=== PATIENT | male | born 1990 | race Caucasian/White ===

== ENCOUNTER → 2016-11-15 | Outpatient (CLI) | payer BC, OTHER ==
[2016-11-15 14:24] LABS: Blood Urea Nitrogen 11 mg/dL (9-20); Non-African American GFR(MDRD) >60 (>60 ml/min/1.73 sqM)
== END | disposition home or self-care (01) ==
LOC: LABWHC1 13:42
PROVIDERS: ATTEND Internal Medicine Interventional Cardiology
DX: I71.2 Thoracic aortic aneurysm, without rupture (principal)
CPT/HCPCS: 36415; 82565; 84520

== ENCOUNTER → 2016-12-22 | Outpatient (CLI) | payer BC, OTHER ==
[2016-12-22 10:54] LABS: CH 30.9; CHCM 34.8; HCT 48.8 % (39.0-53.0); HDW 2.96; HGB 16.9 gm/dL (13.0-17.5); MCH 30.9 pg (25.0-35.0); MCHC 34.6 g/dL (31.0-37.0); MCV 89.3 fL (80.0-100.0); Mean Platelet Volume 6.3; RBC 5.46 m/uL (4.30-5.90); RDW 13.1 % (11.5-15.5); WBC 7.7 k/uL (3.8-10.6)
[2016-12-22 11:29] LABS: Anion Gap 12 mmol/L; Blood Urea Nitrogen 16 mg/dL (9-20); Calcium 10.3 mg/dL (8.4-10.2); Carbon Dioxide 29 mmol/L (22-30); Chloride 102 mmol/L (98-107); Glucose 91 mg/dL (74-99); Non-African American GFR(MDRD) >60 (>60 ml/min/1.73 sqM); Potassium 4.5 mmol/L (3.5-5.1); Sodium 143 mmol/L (137-145)
== END | disposition home or self-care (01) ==
LOC: LABWHC1 10:39
PROVIDERS: ATTEND Internal Medicine Interventional Cardiology
DX: Z01.812 Encounter for preprocedural laboratory examination (principal); I35.0 Nonrheumatic aortic (valve) stenosis
CPT/HCPCS: 36415; 80048; 85027

== ENCOUNTER 2017-01-04 06:14 | Day surgery (SDC) | payer BC, OTHER ==
[2017-01-03 13:17] VITALS: BMI 25.7
[~2017-01-04 06:14] MED LIST: ALPRAZolam 0.25 MG TAB PO PRN; ALPRAZolam 0.5 MG TAB PO PRN; ASPIRIN 325 MG TAB PO STA; ATORVASTATIN 80 MG TAB PO STA; NITROGLYCERIN SL TABS 0.4 MG TAB SUBLINGUAL PRN; SODIUM CHLORIDE 0.9% 1,000 ML in EMPTY BAG 1 BAG IV ONE
[2017-01-04] MEDS ORDERED: SODIUM CHLORIDE 0.9% 1,000 ML IV ONE (06:50)
[2017-01-04] MEDS ORDERED: diphenhydrAMINE 50 MG/ML 1 ML VIAL ONE (07:27)
[2017-01-04] MEDS ORDERED: LIDOCAINE 2% INJ 20 MG/ML (20 ML MDV) ONE (07:27)
[2017-01-04] MEDS ORDERED: HEPARIN SODIUM 1,000 UNIT/ML VIAL ONE (07:27)
[2017-01-04] MEDS ORDERED: MIDAZOLAM 2 MG/2 ML VIAL ONE ×2 (07:27→11:45)
[2017-01-04] MEDS ORDERED: VERAPAMIL 2.5 MG/ML 2 ML AMP ONE (07:28)
[2017-01-04] MEDS ORDERED: SODIUM CHLORIDE 0.9% (PF) 10 ML VIAL ONE (07:28)
[2017-01-04] MEDS ORDERED: diphenhydrAMINE 50 MG/ML 1 ML VIAL IVP ONE (07:45)
[2017-01-04] MEDS ORDERED: MIDAZOLAM 2 MG/2 ML VIAL IV ONE ×2 (07:47→12:00)
[2017-01-04] MEDS ORDERED: LIDOCAINE 2% INJ 20 MG/ML SQ ONE (07:49)
[2017-01-04] MEDS ORDERED: fentaNYL (PF) 50 MCG/ML 2 ML AMP ONE ×2 (07:50→11:46)
[2017-01-04] MEDS ORDERED: fentaNYL (PF) 50 MCG/ML 2 ML AMP IV ONE ×2 (07:51→12:00)
[2017-01-04] MEDS: VERAPAMIL SYRINGE (5 MG/10 ML) INTRAARTER ONE ×2 (07:57→08:09)
[2017-01-04] MEDS ORDERED: IOHEXOL 350 MG/ML 100 ML BOTTLE INJ ONE (08:09)
[2017-01-04] MEDS ORDERED: SODIUM CHLORIDE 0.9% 1,000 ML IV SCH (08:30)
[2017-01-04] MEDS ORDERED: ACETAMINOPHEN TAB 325 MG TAB PO PRN (10:58)
[2017-01-04] MEDS ORDERED: ACETAMINOPHEN TAB 325 MG TAB ONE (10:59)
[2017-01-04] MEDS ORDERED: IV FLUID CONTINUATION 1,000 ML IV ONE (11:50)
[2017-01-04] MEDS: BENZOCAINE SPRAY 100 APPLIC/CAN MUCOUS MEM ONE ×2 (11:57→12:06)
[2017-01-04 12:00] VITALS: RESP 16
[2017-01-04] MEDS: MIDAZOLAM 2 MG/2 ML VIAL IV ONE ×2 (12:03→12:07)
[2017-01-04] MEDS ORDERED: SODIUM CHLORIDE 0.9% 500 ML IV ONE (12:10)
[2017-01-04 12:20] VITALS: TEMP 98
[2017-01-04 13:09] VITALS: PULSE 78
--- NOTE | 2017-01-04 13:29 | XR ---
EXAMINATION TYPE: XR chest 2V DATE OF EXAM: 01/04/2017 1:26 PM HISTORY: PreOp Cardiac Surgery. REFERENCE: Previous study dated 02/24/2016. FINDINGS: The lungs are clear. Pleural spaces are clear. Heart size is normal. IMPRESSION: NORMAL CHEST.
--- NOTE | 2017-01-04 14:15 | US ---
EXAMINATION TYPE: US carotid duplex BILAT DATE OF EXAM: 01/04/2017 1:40 PM COMPARISON: NONE CLINICAL HISTORY: pre-op CABG. Pre op cardiac surgery, valve replacement. Dizziness, chest pain EXAM MEASUREMENTS: RIGHT: Peak Systolic Velocity (PSV) cm/sec ----- Right CCA: 68.0 ----- Right ICA: 73.2 ----- Right ECA: 57.5 ICA/CCA ratio: 1.1 RIGHT: End Diastole cm/sec ----- Right CCA: 19.7 ----- Right ICA: 41.8 ----- Right ECA: 11.3 LEFT: Peak Systolic Velocity (PSV) cm/sec ----- Left CCA: 74.6 ----- Left ICA: 62.5 ----- Left ECA: 59.2 ICA/CCA ratio: 0.8 LEFT: End Diastole cm/sec ----- Left CCA: 25.2 ----- Left ICA: 25.2 ----- Left ECA: 10.4 VERTEBRALS (direction of flow): Right Vertebral: Antegrade Left Vertebral: Antegrade TECHNOLOGIST IMPRESSION: Mild plaque noted bilateral bifurcations, greater on the left. NO increased velocities. No significant stenosis. IMPRESSION: I DO NOT SEE EVIDENCE OF A HEMODYNAMICALLY SIGNIFICANT STENOSIS IN EITHER CAROTID SYSTEM. Criteria for Assigning % of Stenosis / Diameter reduction (Estimation based on the indirect measurements of the internal carotid artery velocities (ICA PSV). 1. Normal (no stenosis)=ICA PSV < 125 cm/s: ratio < 2.0: ICA EDV<40 cm/s. 2. Less than 50% stenosis=ICA PSV < 125 cm/s: ratio < 2.0: ICA EDV<40 cm/s. 3. 50 to 69% stenosis=ICA PSV of 125 to 230 cm/s: ration 2.0 ? 4.0: ICA EDV 40-100 cm/s. 4. Greater than 70% stenosis to near occlusion= ICA PSV > 230 cm/s: ratio > 4.0: ICA EDV > 100 cm/s. 5. Near occlusion= ICA PSV velocities may be low or undetectable: variable ratio and ICA EDV. 6. Total occlusion=unable to detect flow.
[2017-01-04 14:44] LABS: Appearance,Urine Clear (Clear); Bilirubin,Urine Negative (Negative); Glucose,Urine (UA) Negative (Negative); Ketones,Urine Negative (Negative); Leukocyte Esterase,Urine Negative (Negative); Nitrite,Urine Negative (Negative); Protein,Urine Negative (Negative); Specific Gravity,Urine 1.022 (1.001-1.035); UA Billing (MACRO vs. MICRO) CHEM; Urobilinogen,Urine <2.0 mg/dL (<2.0)
[2017-01-04 15:59] LABS: Basophils # (A) 0.1 k/uL (0-0.2); Basophils % (A) 1 %; CH 30.5; CHCM 35.1; Eosinophils # (A) 0.3 k/uL (0-0.7); Eosinophils % (A) 4 %; HCT 43.9 % (39.0-53.0); HGB 15.3 gm/dL (13.0-17.5); Luc # (Auto) 0.13; Luc % (Auto) 2; Lymphocytes # (A) 2.2 k/uL (1.0-4.8); Lymphocytes % (A) 29 %; MCH 30.3 pg (25.0-35.0); MCHC 34.7 g/dL (31.0-37.0); MCV 87.3 fL (80.0-100.0); Mean Platelet Volume 7.4; Monocytes # (A) 0.5 k/uL (0-1.0); Monocytes % (A) 6 %; Neutrophils # (A) 4.5 k/uL (1.3-7.7); Neutrophils % (A) 58 %; RBC 5.03 m/uL (4.30-5.90); RDW 12.8 % (11.5-15.5); WBC 7.6 k/uL (3.8-10.6); WBC (Perox) 7.69
[2017-01-04 16:16] LABS: ALT 43 U/L (21-72); AST 26 U/L (17-59); Alkaline Phosphatase 49 U/L (38-126); Anion Gap 9 mmol/L; Blood Urea Nitrogen 12 mg/dL (9-20); Calcium 9.1 mg/dL (8.4-10.2); Carbon Dioxide 26 mmol/L (22-30); Chloride 106 mmol/L (98-107); Cholesterol 215 mg/dL (<200); Glucose 87 mg/dL (74-99); HDL Cholesterol 42 mg/dL (40-60); INR 1.1 (<1.1); Non-African American GFR(MDRD) >60 (>60 ml/min/1.73 sqM); Partial Thromboplastin Time 25.2 sec (22.0-30.0); Potassium 4.4 mmol/L (3.5-5.1); Prothrombin Time 10.8 sec (9.0-12.0); Sodium 141 mmol/L (137-145); Total Bilirubin 0.9 mg/dL (0.2-1.3); Total Protein 6.9 g/dL (6.3-8.2); Triglycerides 288 mg/dL (<150)
[2017-01-04 17:15] VITALS: BP 102/56
[2017-01-04 18:39] LABS: Hemoglobin A1C 4.9 % (4.2-6.1)
--- NOTE | 2017-01-04 18:41 | CC ---
DATE OF SERVICE: 01/04/2017 PROCEDURE: Coronary angiography. PERFORMED BY: Dr. eSnait Taveras. CLINICAL INFORMATION: Mr. Zacarias Ashraf is a 26-year-old gentleman with bicuspid aortic valve with significant aortic stenosis and symptoms of exertional shortness of breath and occasional chest pressure was followed by me for the last year or so. He also had a dilatation of the ascending aorta, but not of the root of about nearly 4.5 cm. He was also seen by Dr. Charlie Guevara. He was advised coronary angiography prior to probable aortic valve replacement. He will also have a transesophageal echo. Risks, benefits, options and rationale were discussed at length with the patient and his and he was brought in for the procedure electively. PROCEDURE NOTE: Under local anesthesia and strict aseptic precautions, a 6 Burmese introducer was placed in the right radial artery. A micropuncture needle technique was used. An Ultima one catheter was used to perform selective coronary angiography of the left system. I used a 3.5 curved right Jocy catheter for right coronary artery angiography. I used the same catheter and tried to cross the aortic valve without much success. Patient has a tight aortic stenosis. The sheath was then taken out and TR band applied as per protocol. There was good hemostasis. The oxygen saturation in the fingers was 94%. Patient tolerated the procedure well without complications. CORONARY ANGIOGRAPHIC FINDINGS: Left Main Coronary Artery: Short, patent, disease-free vessel that immediately bifurcates into LAD and circumflex. There is no significant disease in the left main coronary artery. Left Anterior Descending Coronary Artery: Good caliber vessel extends along the anterior wall, gives off a good-sized diagonal in the midportion, several septal branches, runs all the way to the apex, curves over the apex to supply the inferoapical portion of the left ventricle. There is no significant disease in the entire LAD system. Left Posterior Circumflex Coronary Artery: Technically a codominant vessel, gives off a large obtuse minor and then comes off and distally gives off what seems to be a smaller posterolateral branch. The obtuse marginal and the posterior lateral branch are both free of significant disease. There are only minor irregularities noted. Right Coronary Artery: Probably a codominant vessel that starts with no significant disease, distally bifurcates into PDA and PLV. PLV is smaller. PDA is slightly larger and supplies a fair amount of myocardium. There is no significant disease. Probably RCA is a technically a dominant vessel. LEFT VENTRICULOGRAM: This was not performed. FINAL IMPRESSION: This patient does not have any significant obstructive CAD. He probably has a codominant or a right dominant system without significant obstructive coronary artery disease. RECOMMENDATIONS: I am recommending that we will await the input of transesophageal echo, but most likely he will require aortic valve replacement and with repair or replacement of focal portion of the ascending aorta and this dilatation is confined to the ascending aorta above the root and below the great vessels. The findings were discussed with the patient. His was not available. However, I will speak to her when she is back and I will see him in the office in about a week.
--- NOTE | 2017-01-04 18:43 | LTR ---
January 04, 2017 RE: Zacarias Ashraf Dear Dr. Damian: Please find enclosed my detailed cardiac catheterization report for your records. This gentleman will probably require aortic valve replacement and repair of the ascending aorta or replacement of a focal segment. Dr. Guevara will see the patient later on today following a transesophageal echo and this procedure will be scheduled electively. This patient does not have any obstructive CAD. Please call me if further questions. Thanks again for your referral. Sincerely, ALEXSANDRA TORRES MD
[2017-01-04 18:48] LABS: Hepatitis B Surface Ag Index 0.07
[2017-01-04 18:54] LABS: Hepatitis B Core IgM Index 0.05
[2017-01-04 19:06] LABS: Hepatitis C Virus IgG Index 0.03
[2017-01-04 19:16] LABS: Hepatitis C Virus IgG Ab Negative (Negative)
--- NOTE | 2017-01-04 21:29 | ECHOT ---
DATE OF SERVICE: PREOPERATIVE DIAGNOSIS: Aortic stenosis. POSTOPERATIVE DIAGNOSIS: Aortic stenosis. Patient was given intravenous sedation with Versed and fentanyl and transesophageal echocardiogram was performed without any complications. Left ventricular chamber is normal in size with a mild degree of left ventricular hypertrophy and normal left ventricular systolic functions. Mitral valve morphology is normal. Left atrium is mildly enlarged. Left atrial appendage is clear. Aortic valve is heavily calcified. It is bicuspid. The opening of the aortic valve is very eccentric and it was difficult to measure the aortic valve area by planimeter. The aortic cusp separation at the tip was 0.8 cm, suggestive of significant aortic stenosis. A peak gradient of 65 to 70 mmHg was noted across the aortic valve. There is a moderate degree of aortic regurgitation. Ascending aorta measures about 4.5 cm and is dilated. Tricuspid valve morphology is normal. Interatrial septum is intact. There is no evidence of any PFO by saline contrast study. FINAL IMPRESSION: The aortic valve is heavily calcified and it is bicuspid. Peak gradient of 65 to 70 mmHg is noted with diminished cusp suppression at the tip of the leaflet suggestive of severe aortic stenosis. There is a moderate degree of aortic regurgitation noted. Ascending aorta is dilated and measures about 4.5 cm. Left ventricular chamber is normal in size with mild degree of left ventricular hypertrophy, normal left ventricular systolic function. Interatrial septum is intact. There is no evidence of PFO. Total sedation time use was 17 minutes.
--- NOTE | 2017-01-10 10:26 | P.VSCSTY ---
Greater Saphenous Vein Mapping This is bilateral lower extremity greater saphenous vein mapping. Date of service 01/04/2017 Vein quality and ultrasound appearance pre-CABG. Vein size groin right 6.3 x 7.8 groin left 5.0 x 5.8 High thigh right 3.7 x 5.5 high thigh left 3.5 x 3.5 Mid thigh right to 2.8 x 3.5 mid thigh left 3.3 x 3.7 Above-knee right 2.4 x 2.7 above- knee left 2.1 x 2.0 Below knee right 2.7 x 2.9 below-knee left 2.1 x 2.3 Mid calf right 2.2 x 2.9 mid calf left 2.5 x 2.5 Ankle right to 2.6 x 3.5 ankle left 3.4 x 3.6 Impression usable bilateral greater saphenous vein.
== END 2017-01-04 16:30 | disposition home or self-care (01) ==
LOC: CATHCVL 06:14
PROVIDERS: ATTEND Internal Medicine Interventional Cardiology
DX: I35.2 Nonrheumatic aortic (valve) stenosis with insufficiency (principal); Q23.1 Congenital insufficiency of aortic valve; I71.2 Thoracic aortic aneurysm, without rupture; I51.7 Cardiomegaly; Z79.899 Other long term (current) drug therapy; Z87.891 Personal history of nicotine dependence
CPT/HCPCS: 94150; 93312; 93320; 93325; 93454; 83880; 80061; 80053; 80074; 84443; 83036; 83735; 84484; 85025; 85610; 85730; 81003; 87070; 87086; 71020; 93970; 93880; 99152 ×2; 99153; C1769; C1894 ×2; J2001; J2250; J1200; Q9967; J3010; J1644

== ENCOUNTER 2017-01-15 05:53 | Inpatient (IN) | payer BC, OTHER ==
[~2017-01-15 05:53] MED LIST changes: +ALBUMIN HUMAN 25% 50 ML IV ONE; +ALBUMIN HUMAN 5% 500 ML IVPB ONE; -ALPRAZolam 0.25 MG TAB PO PRN; -ALPRAZolam 0.5 MG TAB PO PRN; +AMINOCAPROIC ACID 250 MG/ML 20 ML VIAL IV ONE; +AMINOCAPROIC ACID 5,000 MG in DEXTROSE 5% IN WATER 50 ML IV ONE; +ASPIRIN 325 MG TAB PO ONE; -ASPIRIN 325 MG TAB PO STA; +ATORVASTATIN 10 MG TAB PO ONE; -ATORVASTATIN 80 MG TAB PO STA; +CALCIUM CHLORIDE 100 MG/ML 10 ML SYRINGE IV ONE; +CHLORHEXIDINE GLUCONATE 15 ML CUP MUCOUS MEM ONE; +CLEVIDIPINE BUTYRATE 25 MG in EMPTY BAG 1 BAG IV ONE; +DEXTROSE 5% IN WATER 1,000 ML with POTASSIUM CHLORIDE 110 MEQ, MAGNESIUM SULFATE 16 MEQ... IV ONE; +DEXTROSE 5% IN WATER 1,000 ML with POTASSIUM CHLORIDE 25 MEQ, SODIUM CHLORIDE 4MEQ/ML V... IV ONE; +DILTIAZEM 125 MG in SODIUM CHLORIDE 0.9% 100 ML IV ONE; +HEPARIN SODIUM 1,000 UNIT/ML VIAL IV ONE; +HEPARIN SODIUM,PORCINE 5,000 UNIT in SODIUM CHLORIDE 0.9% 500 ML IV ONE; +INSULIN REGULAR 100 UNIT in SODIUM CHLORIDE 0.9% 100 ML IV ONE; +LACTATED RINGERS 1,000 ML IV ONE; +MAGNESIUM SULFATE MG 500 MG/ML VIAL IV ONE; +MANNITOL 25% 12.5 GM/50 ML VIAL IV ONE; +METOPROLOL TARTRATE 12.5 MG TAB PO ONE; +MUPIROCIN 2% OINT 22 GM TUBE NASAL NR; -NITROGLYCERIN SL TABS 0.4 MG TAB SUBLINGUAL PRN; +NITROGLYCERIN-D5W PMX 25 MG/250 ML BTL IV ONE; +NITROGLYCERIN-D5W PMX 50 MG in DEXTROSE/WATER 1 250ML.BAG IV ONE; +NOREPINEPHRINE 4 MG in SODIUM CHLORIDE 0.9% 250 ML IV ONE; +PAPAVERINE 360 MG in SODIUM CHLORIDE 0.9% 90 ML IV ONE; +PHENYLEPHRINE 40 MG in SODIUM CHLORIDE 0.9% 250 ML IV ONE; +PHENYLEPHRINE-0.9% NACL SYG 1 MG/10 ML SYRINGE IV ONE; +PROPOFOL 50 ML IV ONE; +PROTAMINE SULFATE 10 MG/ML 25 ML VIAL IV ONE; +PROTAMINE SULFATE 250 MG in EMPTY BAG 1 BAG IV ONE; +SODIUM BICARB 8.4% 50 ML SYR (1 MEQ/ML) IV ONE; +SODIUM CHLORIDE 0.9% 1,000 ML IV ONE; -SODIUM CHLORIDE 0.9% 1,000 ML in EMPTY BAG 1 BAG IV ONE; +ceFAZolin 1,000 MG in SODIUM CHLORIDE 0.9% IRRIGATIO 1,000 ML IRRIGATION ONE; +ceFAZolin 2,000 MG in SODIUM CHLORIDE 0.9% 30 ML IVPB ONE
[2017-01-15] MEDS ORDERED: MAGNESIUM SULFATE 4 MEQ/ML 2 ML VIAL ONE (07:58)
[2017-01-15] MEDS ORDERED: HEPARIN SODIUM,PORCINE 10,000 UNIT/ML 1 ML VIAL ONE (07:58)
[2017-01-15] MEDS ORDERED: LIDOCAINE 2% SYG (PF) 100 MG/5 ML ONE (07:58)
[2017-01-15] MEDS ORDERED: HEPARIN SODIUM 1,000 UNIT/ML VIAL ONE (07:58)
[2017-01-15] MEDS ORDERED: ALBUMIN HUMAN 5% 500 ML VIAL IVPB ONE (07:58)
[2017-01-15] MEDS ORDERED: SUCCINYLCHOLINE CHLORIDE 100 MG/5 ML SYR IV ONE (07:58)
[2017-01-15] MEDS ORDERED: SODIUM CHLORIDE 0.9% IRRIG 1,000 ML BTL IRRIGATION ONE (07:58)
[2017-01-15] MEDS ORDERED: fentaNYL (PF) 50 MCG/ML 2 ML AMP ONE (07:58)
[2017-01-15] MEDS ORDERED: MIDAZOLAM 2 MG/2 ML VIAL ONE (07:58)
[2017-01-15] MEDS ORDERED: ELECTROLYTE-R (PH 7.4) 1,000 ML IV.SOLN IV ONE (07:58)
[2017-01-15] MEDS ORDERED: fentaNYL (PF) 50 MCG/ML 50 ML VIAL ONE (07:58)
[2017-01-15] MEDS ORDERED: HEPARIN SODIUM,PORCINE 5,000 UNIT/ML 1 ML VIAL ONE (07:58)
[2017-01-15] MEDS ORDERED: PROPOFOL 10 MG/ML 20 ML VIAL IV ONE (07:58)
[2017-01-15] MEDS ORDERED: VECURONIUM 10 MG VIAL IV ONE (07:58)
[2017-01-15 08:34] LABS: Glucose,Whole Blood 104 mg/dL (75-99)
[2017-01-15 09:34] LABS: Glucose,Whole Blood 87 mg/dL (75-99)
[2017-01-15 10:18] LABS: Glucose,Whole Blood 236 mg/dL (75-99)
[2017-01-15 11:03] LABS: Glucose,Whole Blood 260 mg/dL (75-99)
[2017-01-15 11:50] LABS: Glucose,Whole Blood 173 mg/dL (75-99)
[2017-01-15 13:36] LABS: Glucose,Whole Blood 131 mg/dL (75-99)
[2017-01-15] MEDS ORDERED: Phosphorus Replacement Protoco 1 EACH MISC MISCELLANE PRN (14:25)
[2017-01-15] MEDS ORDERED: Magnesium Replacement Protocol 1 EACH MISC MISCELLANE PRN (14:25)
[2017-01-15] MEDS ORDERED: BENZOCAINE/MENTHOL LOZENG 1 EACH LOZENGE MUCOUS MEM PRN (14:25)
[2017-01-15] MEDS ORDERED: CALCIUM GLUCONATE 2,000 MG in SODIUM CHLORIDE 0.9% 100 ML IVPB ONE (14:25)
[2017-01-15] MEDS ORDERED: Potassium Replacement Protocol 1 EACH MISC MISCELLANE PRN (14:25)
[2017-01-15] MEDS ORDERED: MILRINONE-D5W PMX 20 MG in DEXTROSE/WATER 1 100ML.BAG IV SCH (14:30)
[2017-01-15] MEDS ORDERED: NOREPINEPHRINE 4 MG in SODIUM CHLORIDE 0.9% 250 ML IV SCH (14:30)
[2017-01-15] MEDS ORDERED: PROPOFOL 500 MG in EMPTY BAG 1 BAG IV SCH (14:30)
[2017-01-15] MEDS ORDERED: INSULIN REGULAR 100 UNIT in SODIUM CHLORIDE 0.9% 100 ML IV SCH (14:45)
[2017-01-15] MEDS: MORPHINE SULFATE 2 MG/ML SYRINGE IVP PRN ×2 (15:28→19:41)
[2017-01-15 15:35] LABS: Glucose,Whole Blood 146 mg/dL (75-99)
[2017-01-15] MEDS: IPRATROPIUM-ALBUTEROL 3 ML NEB INHALATION SCH ×2 (15:51→19:03)
--- NOTE | 2017-01-15 15:56 | XR ---
EXAMINATION TYPE: XR chest 1V portable DATE OF EXAM: 01/15/2017 3:51 PM HISTORY: Post Op CABG COMPARISON: 01/04/2017 TECHNIQUE: Single view of the chest is submitted. FINDINGS: Endotracheal tube, NG tube, SG catheter, mediastianal drains and chest tubes are appropriately placed . Post operative changes of CABG. No sizeable pneumothorax. Scattered Pleural-parencymal opacities may reflect atelectasis. The heart is not enlarged. IMPRESSION: 1. Post operative changes of CABG.
[2017-01-15 16:03] LABS: Glucose,Whole Blood 163 mg/dL (75-99)
[2017-01-15] MEDS: ceFAZolin 2 GM in SODIUM CHLORIDE 0.9% 100 ML IVPB SCH (16:05)
[2017-01-15] MEDS: LACTATED RINGERS 1,000 ML IV SCH (16:11)
[2017-01-15] MEDS: CLEVIDIPINE BUTYRATE 25 MG in EMPTY BAG 1 BAG IV SCH (16:11)
[2017-01-15 16:16] LABS: ABG Base Excess -2.2 mmol/L; ABG HCO3 22 mmol/L (21-25); ABG Oxygen Saturation 99.9 % (94-97); ABG PCO2 35 mmHg (35-45); ABG PH 7.41 (7.35-7.45); ABG PO2 300 mmHg (83-108); ABG TCO2 23 mmol/L (19-24)
[2017-01-15 16:29] LABS: Basophils % (A) 0 %; CH 31.1; CHCM 35.2; Eosinophils # (A) 0.1 k/uL (0-0.7); Eosinophils % (A) 0 %; HCT 25.8 % (39.0-53.0); HDW 2.84; Ionized Calcium 4.6 mg/dL (4.5-5.3); Luc % (Auto) 1; Lymphocytes # (A) 1.8 k/uL (1.0-4.8); Lymphocytes % (A) 15 %; MCH 30.9 pg (25.0-35.0); MCHC 34.8 g/dL (31.0-37.0); MCV 88.7 fL (80.0-100.0); Mean Platelet Volume 7.7; Monocytes # (A) 0.9 k/uL (0-1.0); Monocytes % (A) 8 %; Neutrophils # (A) 8.7 k/uL (1.3-7.7); Neutrophils % (A) 76 %; RBC 2.92 m/uL (4.30-5.90); WBC 11.5 k/uL (3.8-10.6); WBC (Perox) 11.49
[2017-01-15 16:37] LABS: ALT 30 U/L (21-72); AST 47 U/L (17-59); Alkaline Phosphatase 23 U/L (38-126); Anion Gap 9 mmol/L; Blood Urea Nitrogen 12 mg/dL (9-20); Calcium 7.3 mg/dL (8.4-10.2); Carbon Dioxide 22 mmol/L (22-30); Chloride 108 mmol/L (98-107); Glucose 136 mg/dL (74-99); Magnesium 2.2 mg/dL (1.6-2.3); Non-African American GFR(MDRD) >60 (>60 ml/min/1.73 sqM); Sodium 139 mmol/L (137-145); Total Protein 4.4 g/dL (6.3-8.2)
[2017-01-15 17:02] LABS: Glucose,Whole Blood 163 mg/dL (75-99)
[2017-01-15 17:06] LABS: INR 1.6 (<1.1); Partial Thromboplastin Time 42.6 sec (22.0-30.0); Prothrombin Time 15.4 sec (9.0-12.0)
[2017-01-15 18:05] LABS: Glucose,Whole Blood 143 mg/dL (75-99)
[2017-01-15 18:41] LABS: Basophils % (A) 0 %; CH 30.9; Eosinophils % (A) 0 %; HDW 2.86; HGB 9.3 gm/dL (13.0-17.5); Luc # (Auto) 0.06; Luc % (Auto) 1; Lymphocytes % (A) 9 %; MCH 31.7 pg (25.0-35.0); MCHC 35.7 g/dL (31.0-37.0); MCV 88.8 fL (80.0-100.0); Mean Platelet Volume 8.1; Monocytes # (A) 0.8 k/uL (0-1.0); Monocytes % (A) 6 %; Neutrophils # (A) 10.1 k/uL (1.3-7.7); Neutrophils % (A) 84 %; RBC 2.93 m/uL (4.30-5.90); RDW 13.1 % (11.5-15.5); WBC (Perox) 12.72
[2017-01-15] MEDS: ACETAMINOPHEN IV (For NPO) 1,000 MG in EMPTY BAG 1 BAG IVPB SCH (18:41)
[2017-01-15 18:48] LABS: Glucose,Whole Blood 126 mg/dL (75-99)
--- NOTE | 2017-01-15 19:11 | P.PN ---
Progress Note - Text Procedure performed: Transesophageal echocardiography Indication for the procedure: Aortic valve replacement surgery, ischemia monitoring, assessment of valvular function, intracardiac air monitoring, assessment of regional wall motion abnormalities and hemodynamic monitoring. Probe insertion: Under general anesthesia, uneventful. Pre-bypass findings: Left ventricle is slightly hypertrophied with ejection fraction approximately 55 -60%. There are no regional wall motion abnormalities recognized. Left atrium slightly dilated. No thrombus seen in the appendage. Right atrium slightly dilated Right ventricle normal in structure and function. Aortic valve appears to be heavily calcified and stenotic. It is bicuspid in morphology with an eccentric opening and in anterior leaflet and posterior leaflet configuration. The valve area by continuity condition is calculated as 1.1cm. Mean gradient is 45 mm of hg and peak gradient of 68 mmHg Mild AI noted. Mitral valve normal in anatomy with trivial mitral regurgitation seen. Trivial tricuspid and pulmonic regurgitation seen. Descending aorta grade 1 atheroma seen. Post-bypass findings: Prosthetic aortic valve seen no paravalvular regurgitation noted. Mean gradient across the new prosthetic valve is about 9 mmHg. There is mild mitral regurgitation seen . Left ventricular ejection fraction is 55-60%. No new regional wall motion abnormalities noted. The rest of the exam is same as pre-bypass.
[2017-01-15] MEDS: ONDANSETRON 4 MG/2 ML VIAL IVP PRN (19:40)
[2017-01-15 19:49] LABS: ABG Base Excess -1.8 mmol/L; ABG HCO3 22 mmol/L (21-25); ABG PCO2 36 mmHg (35-45); ABG PH 7.41 (7.35-7.45); ABG PO2 107 mmHg (83-108); ABG TCO2 23 mmol/L (19-24)
[2017-01-15] MEDS ORDERED: METOPROLOL TARTRATE 12.5 MG TAB PO STA (20:03)
[2017-01-15 20:06] LABS: Glucose,Whole Blood 148 mg/dL (75-99)
[2017-01-15 20:58] LABS: Glucose,Whole Blood 132 mg/dL (75-99)
[2017-01-15 21:10] LABS: Basophils % (A) 0 %; CH 30.7; CHCM 34.7; Eosinophils % (A) 0 %; HCT 25.7 % (39.0-53.0); HDW 2.88; HGB 8.7 gm/dL (13.0-17.5); Luc # (Auto) 0.06; Luc % (Auto) 1; Lymphocytes # (A) 0.7 k/uL (1.0-4.8); Lymphocytes % (A) 6 %; MCHC 33.8 g/dL (31.0-37.0); MCV 88.8 fL (80.0-100.0); Monocytes # (A) 0.8 k/uL (0-1.0); Monocytes % (A) 6 %; Neutrophils # (A) 10.8 k/uL (1.3-7.7); Neutrophils % (A) 87 %; RBC 2.89 m/uL (4.30-5.90); RDW 13.1 % (11.5-15.5); WBC 12.3 k/uL (3.8-10.6); WBC (Perox) 12.41
[2017-01-15 21:18] LABS: INR 1.3 (<1.1); Prothrombin Time 12.7 sec (9.0-12.0)
[2017-01-15 21:22] LABS: Ionized Calcium 4.6 mg/dL (4.5-5.3)
[2017-01-15] MEDS: HEPARIN SODIUM,PORCINE 5,000 UNIT/ML 1 ML VIAL SQ SCH (21:36)
[2017-01-15] MEDS: METOCLOPRAMIDE 5 MG/ML 2 ML VIAL IVP PRN (21:36)
[2017-01-15 21:52] LABS: ALT 24 U/L (21-72); AST 62 U/L (17-59); Alkaline Phosphatase 23 U/L (38-126); Anion Gap 9 mmol/L; Blood Urea Nitrogen 12 mg/dL (9-20); Calcium 7.7 mg/dL (8.4-10.2); Carbon Dioxide 24 mmol/L (22-30); Chloride 106 mmol/L (98-107); Glucose 132 mg/dL (74-99); Magnesium 2.3 mg/dL (1.6-2.3); Non-African American GFR(MDRD) >60 (>60 ml/min/1.73 sqM); Potassium 4.2 mmol/L (3.5-5.1); Sodium 139 mmol/L (137-145); Total Bilirubin 1.1 mg/dL (0.2-1.3); Total Protein 4.8 g/dL (6.3-8.2)
[2017-01-15 22:04] LABS: Glucose,Whole Blood 120 mg/dL (75-99)
[2017-01-15 23:10] LABS: Glucose,Whole Blood 124 mg/dL (75-99)
[2017-01-16 00:07] LABS: Glucose,Whole Blood 121 mg/dL (75-99)
[2017-01-16] MEDS: ACETAMINOPHEN IV (For NPO) 1,000 MG in EMPTY BAG 1 BAG IVPB SCH ×3 (00:10→12:07)
[2017-01-16] MEDS: ceFAZolin 2 GM in SODIUM CHLORIDE 0.9% 100 ML IVPB SCH ×2 (00:11→08:49)
[2017-01-16 01:04] LABS: Glucose,Whole Blood 121 mg/dL (75-99)
[2017-01-16 02:14] LABS: Glucose,Whole Blood 113 mg/dL (75-99)
[2017-01-16 03:10] LABS: Glucose,Whole Blood 118 mg/dL (75-99)
[2017-01-16] MEDS: MORPHINE SULFATE 2 MG/ML SYRINGE IVP PRN (04:02)
[2017-01-16 04:13] LABS: Glucose,Whole Blood 133 mg/dL (75-99)
[2017-01-16] MEDS: ALBUMIN HUMAN 5% 250 ML in EMPTY BAG 1 BAG IVPB PRN ×5 (04:54→09:39)
[2017-01-16 05:13] LABS: Glucose,Whole Blood 137 mg/dL (75-99)
[2017-01-16 05:28] LABS: Basophils % (A) 0 %; CH 30.7; CHCM 34.5; Eosinophils % (A) 0 %; HCT 23.9 % (39.0-53.0); HDW 2.89; HGB 8.1 gm/dL (13.0-17.5); Luc # (Auto) 0.11; Luc % (Auto) 1; Lymphocytes # (A) 1.3 k/uL (1.0-4.8); Lymphocytes % (A) 11 %; MCH 30.3 pg (25.0-35.0); MCV 89.2 fL (80.0-100.0); Mean Platelet Volume 7.8; Monocytes # (A) 0.9 k/uL (0-1.0); Monocytes % (A) 7 %; Neutrophils # (A) 9.9 k/uL (1.3-7.7); Neutrophils % (A) 81 %; RBC 2.68 m/uL (4.30-5.90); WBC 12.2 k/uL (3.8-10.6); WBC (Perox) 12.09
[2017-01-16 05:36] LABS: Ionized Calcium 4.4 mg/dL (4.5-5.3)
[2017-01-16 05:45] LABS: ALT 30 U/L (21-72); AST 73 U/L (17-59); Alkaline Phosphatase 23 U/L (38-126); Anion Gap 9 mmol/L; Blood Urea Nitrogen 12 mg/dL (9-20); Calcium 7.8 mg/dL (8.4-10.2); Carbon Dioxide 25 mmol/L (22-30); Chloride 106 mmol/L (98-107); Glucose 125 mg/dL (74-99); Magnesium 2.1 mg/dL (1.6-2.3); Non-African American GFR(MDRD) >60 (>60 ml/min/1.73 sqM); Potassium 4.5 mmol/L (3.5-5.1); Sodium 140 mmol/L (137-145); Total Bilirubin 0.9 mg/dL (0.2-1.3); Total Protein 4.9 g/dL (6.3-8.2)
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
[2017-01-16 06:10] LABS: Glucose,Whole Blood 129 mg/dL (75-99)
--- NOTE | 2017-01-16 06:41 | XR ---
EXAMINATION TYPE: XR chest 1V portable DATE OF EXAM: 01/16/2017 6:24 AM CLINICAL HISTORY: Difficulty breathing progress study. Post open cardiac surgery TECHNIQUE: Single AP portable upright view of the chest is obtained. COMPARISON: Chest x-ray from one day earlier FINDINGS: Mediastinal clips and sternal wires as well as metallic aortic valve are all redemonstrate d. There is stable right internal jugular Fiatt-Marlon catheter. There are stable bilateral chest tubes and mediastinal drainage catheter. There is interval extubation with removal of endotracheal and orog astric tubes. Cardiac silhouette size is stable and upper limits of normal with perhaps mild central vascular conge stion. There is no suspicious new focal airspace opacity, pleural effusion, or pneumothorax seen bila terally. IMPRESSION: Interval extubation, no new suspicious focal infiltrate is seen.
[2017-01-16 07:05] LABS: Glucose,Whole Blood 127 mg/dL (75-99)
[2017-01-16 07:45] LABS: INR 1.3 (<1.1); Prothrombin Time 12.4 sec (9.0-12.0)
[2017-01-16 07:46] LABS: ABG Base Excess -0.1 mmol/L; ABG HCO3 22 mmol/L (21-25); ABG PCO2 28 mmHg (35-45); ABG PO2 398 mmHg (83-108); ABG TCO2 23 mmol/L (19-24)
[2017-01-16 07:47] LABS: ABG PH 7.47 (7.35-7.45)
[2017-01-16 07:48] LABS: ABG HCO3 23 mmol/L (21-25); ABG Oxygen Saturation 99.9 % (94-97); ABG PCO2 31 mmHg (35-45); ABG PO2 244 mmHg (83-108); ABG TCO2 23 mmol/L (19-24)
[2017-01-16] MEDS ORDERED: CALCIUM GLUCONATE 1,000 MG in SODIUM CHLORIDE 0.9% 100 ML IVPB ONE (07:48)
[2017-01-16 07:49] LABS: ABG Base Excess 0.2 mmol/L; ABG HCO3 25 mmol/L (21-25); ABG Oxygen Saturation 99.8 % (94-97); ABG PCO2 44 mmHg (35-45); ABG PH 7.37 (7.35-7.45); ABG PO2 234 mmHg (83-108); ABG TCO2 26 mmol/L (19-24)
[2017-01-16 07:50] LABS: ABG Base Excess -0.3 mmol/L; ABG HCO3 24 mmol/L (21-25); ABG Oxygen Saturation 99.9 % (94-97); ABG PCO2 44 mmHg (35-45); ABG PH 7.37 (7.35-7.45); ABG PO2 351 mmHg (83-108); ABG TCO2 26 mmol/L (19-24)
[2017-01-16 07:51] LABS: ABG PCO2 45 mmHg (35-45); ABG PH 7.32 (7.35-7.45); ABG PO2 343 mmHg (83-108)
[2017-01-16 07:52] LABS: ABG Base Excess -3.3 mmol/L; ABG HCO3 22 mmol/L (21-25); ABG Oxygen Saturation 99.9 % (94-97); ABG TCO2 24 mmol/L (19-24)
[2017-01-16 07:53] LABS: ABG Base Excess -1.1 mmol/L; ABG HCO3 22 mmol/L (21-25); ABG PCO2 34 mmHg (35-45); ABG PH 7.44 (7.35-7.45); ABG PO2 >420 mmHg (83-108); ABG TCO2 23 mmol/L (19-24)
[2017-01-16 08:10] LABS: Glucose,Whole Blood 123 mg/dL (75-99)
[2017-01-16] MEDS: KETOROLAC 30 MG/ML 1 ML VIAL IVP SCH ×4 (08:14→23:19)
[2017-01-16] MEDS: PANTOPRAZOLE 40 MG/10 ML VIAL IVP SCH (08:21)
[2017-01-16] MEDS: HEPARIN SODIUM,PORCINE 5,000 UNIT/ML 1 ML VIAL SQ SCH ×3 (08:21→23:16)
[2017-01-16] MEDS: ASPIRIN 325 MG TAB PO SCH (08:21)
[2017-01-16] MEDS: CLOPIDOGREL 75 MG TAB PO SCH (08:21)
[2017-01-16] MEDS: METOPROLOL TARTRATE 12.5 MG TAB PO SCH ×2 (08:21→20:38)
[2017-01-16 08:54] LABS: Glucose,Whole Blood 121 mg/dL (75-99)
[2017-01-16] MEDS ORDERED: ATORVASTATIN 40 MG TAB PO SCH (09:00)
[2017-01-16] MEDS: ONDANSETRON 4 MG/2 ML VIAL IVP PRN ×2 (09:11→23:19)
[2017-01-16] MEDS: LACTATED RINGERS 1,000 ML IV SCH (09:37)
[2017-01-16 10:34] LABS: Glucose,Whole Blood 146 mg/dL (75-99)
--- NOTE | 2017-01-16 10:48 | P.PN ---
Subjective Principal diagnosis: Severe aortic valve stenosis with bicuspid calcified aortic valve. 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 POD #1 aortic valve replacement using a 23 mm mechanical On-X valve bileaflet. Repair of the ascending aortic aneurysm using a 30 mm Hemashield straight graft. Intraoperative transesophageal echocardiogram. Epi-aortic scanning. Patient currently sitting up in the chair, no apparent distress. States pain is controlled except when he needs to cough. No questions at this time. Objective - Vital Signs Vital signs: Vital Signs Temp 97.9 F 01/16/17 08:00 Pulse 90 01/16/17 09:30 Resp 14 01/16/17 08:00 BP 98/53 01/16/17 09:30 Pulse Ox 98 01/16/17 09:30 Intake & Output 01/15/17 01/16/17 01/16/17 18:59 06:59 18:59 Intake Total 948.752 6632.066 642 Output Total 4700 840 220 Balance -4282.574 1337.066 422 Weight 85.5 kg Intake: IV 91 1736 382 0.9 saline flush 21 66 12 ACETAMINOPHEN IV (For NPO 200 ) 1,000 mg In Empty Bag 1 bag @ 400 mls/hr IVPB Q6HR ROSALIND Rx#:[id number] Albumin Human 5% 250 ml 750 250 In Empty Bag 1 bag @ 250 mls/hr IVPB Q1HR PRN Rx#: [id number] Lactated Ringers 1,000 ml 540 100 @ 50 mls/hr IV .Q20H ROSALIND Rx#:[id number] cardiac output 70 80 20 ceFAZolin 2 gm In Sodium 100 Chloride 0.9% 100 ml @ 100 mls/hr IVPB Q8HR ROSALIND Rx#:[id number] Intake, IV Titration 326.426 21.066 200 Amount Calcium Gluconate 2,000 100 mg In Sodium Chloride 0.9 % 100 ml @ 100 mls/hr IVPB ONCE ONE Rx#: [id number] Clevidipine Butyrate 25 7.8 mg In Empty Bag 1 bag @ 1 MG/HR 2 mls/hr IV .Q24H ROSALIND Rx#:[id number] Insulin Regular 100 unit 6.426 13.266 In Sodium Chloride 0.9% 100 ml @ Per Protocol IV .Q0M ROSALIND Rx#:[id number] Lactated Ringers 1,000 ml 170 @ 50 mls/hr IV .Q20H ROSALIND Rx#:[id number] Propofol 500 mg In Empty 50 Bag 1 bag @ Titrate IV . Q0M ROSALIND Rx#:[id number] ceFAZolin 2 gm In Sodium 100 100 Chloride 0.9% 100 ml @ 100 mls/hr IVPB Q8HR ROSALIND Rx#:[id number] Oral 420 60 Output: Chest Tube Drainage 485 467 130 Mediastinal 105 258 90 Pleural Catheter Left 310 110 40 Pleural Catheter Right 70 99 0 Urine 1215 373 90 Estimated Blood Loss 3000 Other: Voiding Method Indwelling Catheter Indwelling Catheter ABP, PAP, CO, CI - Last Documented Arterial Blood Pressure 89/45 Pulmonary Artery Pressure 15/9 Cardiac Output 4.8 Cardiac Index 2.6 - Constitutional General appearance: Present: cooperative, no acute distress - Respiratory Details: Lungs sounds diminished, respirations even, nonlabored. Currently on 2 L nasal cannula. Able to achieve 750 mL on his incentive spirometer. Left pleural chest tube to -20 cm wall suction, draining serosanguineous fluid, 140 mL in the last 12 hours, 420 mL since surgery. Mediastinal chest tube to -20 cm wall suction, draining serous and was fluid, 290 mL in the last 12 hours, 360 mL and since surgery. Right pleural chest tube to -20 cm wall suction, draining serosanguineous fluid, 100 mL in the last 12 hours, 170 mL since surgery. No air leaks present. - Cardiovascular Details: S1, S2 present. Regular rate and rhythm, normal sinus rhythm to sinus tach on telemetry. Chest stable. Heart hugger in place with patient demonstrating appropriate use. No edema present. Teds, SCDs present. - Gastrointestinal Gastrointestinal Comment(s): Abdomen soft, nontender, nondistended. Hypoactive bowel sounds 4 quadrants. No flatus this point. - Genitourinary Genitourinary Comment(s): [place] present draining clear, yellow urine. Approximately 30-40 mL per hour. - Integumentary Integumentary Comment(s): Anterior chest incision covered with dry intact silver dressing. Skin is pale this morning. - Musculoskeletal Musculoskeletal: Present: strength equal bilaterally - Psychiatric Psychiatric: Present: A&O x's 3, appropriate affect, intact judgment & insight - Allied health notes Allied health notes reviewed: nursing - Labs CBC & Chem 7: 03/07/17 05:20 01/16/17 05:20 Labs: Abnormal Lab Results - Last 24 Hours (Table) 01/11/17 01/15/17 01/15/17 Range/Units 15:02 08:32 09:35 WBC (3.8-10.6) k/uL RBC (4.30-5.90) m/uL Hgb (13.0-17.5) gm/dL Hct (39.0-53.0) % Plt Count (150-450) k/uL Neutrophils # (1.3-7.7) k/uL Lymphocytes # (1.0-4.8) k/uL PT (9.0-12.0) sec APTT (22.0-30.0) sec Fibrinogen (200-500) mg/dL ABG pH 7.50 H 7.47 H (7.35-7.45) ABG pCO2 28 L 31 L (35-45) mmHg ABG pO2 398 H 244 H (83-108) mmHg ABG Total CO2 (19-24) mmol/L ABG O2 Saturation 100.0 H 99.9 H (94-97) % ABG Hematocrit (34.0-46.0) % ABG Potassium (3.4-4.5) mmol/L Chloride (98-107) mmol/L Glucose (74-99) mg/dL POC Glucose (mg/dL) (75-99) mg/dL Calcium (8.4-10.2) mg/dL Ionized Calcium Abimael (4.5-5.3) mg/dL Total Bilirubin (0.2-1.3) mg/dL AST (17-59) U/L Alkaline Phosphatase (38-126) U/L Total Protein (6.3-8.2) g/dL Albumin (3.5-5.0) g/dL Arterial Blood Potassium (3.4-4.5) mmol/L Crossmatch See Detail 01/15/17 01/15/17 01/15/17 Range/Units 10:16 10:49 10:50 WBC (3.8-10.6) k/uL RBC (4.30-5.90) m/uL Hgb (13.0-17.5) gm/dL Hct (39.0-53.0) % Plt Count (150-450) k/uL Neutrophils # (1.3-7.7) k/uL Lymphocytes # (1.0-4.8) k/uL PT (9.0-12.0) sec APTT (22.0-30.0) sec Fibrinogen (200-500) mg/dL ABG pH (7.35-7.45) ABG pCO2 (35-45) mmHg ABG pO2 234 H 351 H (83-108) mmHg ABG Total CO2 26 H 26 H (19-24) mmol/L ABG O2 Saturation 99.8 H 99.9 H (94-97) % ABG Hematocrit 24 L 26 L (34.0-46.0) % ABG Potassium 5.1 H (3.4-4.5) mmol/L Chloride (98-107) mmol/L Glucose (74-99) mg/dL POC Glucose (mg/dL) 260 H (75-99) mg/dL Calcium (8.4-10.2) mg/dL Ionized Calcium Abimael (4.5-5.3) mg/dL Total Bilirubin (0.2-1.3) mg/dL AST (17-59) U/L Alkaline Phosphatase (38-126) U/L Total Protein (6.3-8.2) g/dL Albumin (3.5-5.0) g/dL Arterial Blood Potassium 5.1 H (3.4-4.5) mmol/L Crossmatch 01/15/17 01/15/17 01/15/17 Range/Units 11:35 11:36 13:33 WBC (3.8-10.6) k/uL RBC (4.30-5.90) m/uL Hgb (13.0-17.5) gm/dL Hct (39.0-53.0) % Plt Count (150-450) k/uL Neutrophils # (1.3-7.7) k/uL Lymphocytes # (1.0-4.8) k/uL PT (9.0-12.0) sec APTT (22.0-30.0) sec Fibrinogen (200-500) mg/dL ABG pH 7.32 L (7.35-7.45) ABG pCO2 (35-45) mmHg ABG pO2 343 H (83-108) mmHg ABG Total CO2 (19-24) mmol/L ABG O2 Saturation 99.9 H (94-97) % ABG Hematocrit 27 L (34.0-46.0) % ABG Potassium (3.4-4.5) mmol/L Chloride (98-107) mmol/L Glucose (74-99) mg/dL POC Glucose (mg/dL) 173 H 131 H (75-99) mg/dL Calcium (8.4-10.2) mg/dL Ionized Calcium Abimael (4.5-5.3) mg/dL Total Bilirubin (0.2-1.3) mg/dL AST (17-59) U/L Alkaline Phosphatase (38-126) U/L Total Protein (6.3-8.2) g/dL Albumin (3.5-5.0) g/dL Arterial Blood Potassium (3.4-4.5) mmol/L Crossmatch 01/15/17 01/15/17 01/15/17 Range/Units 13:35 15:30 15:33 WBC (3.8-10.6) k/uL RBC (4.30-5.90) m/uL Hgb (13.0-17.5) gm/dL Hct (39.0-53.0) % Plt Count (150-450) k/uL Neutrophils # (1.3-7.7) k/uL Lymphocytes # (1.0-4.8) k/uL PT (9.0-12.0) sec APTT (22.0-30.0) sec Fibrinogen (200-500) mg/dL ABG pH (7.35-7.45) ABG pCO2 34 L (35-45) mmHg ABG pO2 >420 H 300 H (83-108) mmHg ABG Total CO2 (19-24) mmol/L ABG O2 Saturation 100.0 H 99.9 H (94-97) % ABG Hematocrit 29 L (34.0-46.0) % ABG Potassium (3.4-4.5) mmol/L Chloride (98-107) mmol/L Glucose (74-99) mg/dL POC Glucose (mg/dL) 146 H (75-99) mg/dL Calcium (8.4-10.2) mg/dL Ionized Calcium Abimael (4.5-5.3) mg/dL Total Bilirubin (0.2-1.3) mg/dL AST (17-59) U/L Alkaline Phosphatase (38-126) U/L Total Protein (6.3-8.2) g/dL Albumin (3.5-5.0) g/dL Arterial Blood Potassium (3.4-4.5) mmol/L Crossmatch 01/15/17 01/15/17 01/15/17 Range/Units 15:35 15:35 15:35 WBC 11.5 H (3.8-10.6) k/uL RBC 2.92 L (4.30-5.90) m/uL Hgb 9.0 L D (13.0-17.5) gm/dL Hct 25.8 L (39.0-53.0) % Plt Count 106 L (150-450) k/uL Neutrophils # 8.7 H (1.3-7.7) k/uL Lymphocytes # (1.0-4.8) k/uL PT (9.0-12.0) sec APTT (22.0-30.0) sec Fibrinogen 80 L* (200-500) mg/dL ABG pH (7.35-7.45) ABG pCO2 (35-45) mmHg ABG pO2 (83-108) mmHg ABG Total CO2 (19-24) mmol/L ABG O2 Saturation (94-97) % ABG Hematocrit (34.0-46.0) % ABG Potassium (3.4-4.5) mmol/L Chloride 108 H (98-107) mmol/L Glucose 136 H (74-99) mg/dL POC Glucose (mg/dL) (75-99) mg/dL Calcium 7.3 L (8.4-10.2) mg/dL Ionized Calcium Abimael (4.5-5.3) mg/dL Total Bilirubin 2.0 H (0.2-1.3) mg/dL AST (17-59) U/L Alkaline Phosphatase 23 L (38-126) U/L Total Protein 4.4 L (6.3-8.2) g/dL Albumin 3.1 L (3.5-5.0) g/dL Arterial Blood Potassium (3.4-4.5) mmol/L Crossmatch 01/15/17 01/15/17 01/15/17 Range/Units 15:35 16:01 17:01 WBC (3.8-10.6) k/uL RBC (4.30-5.90) m/uL Hgb (13.0-17.5) gm/dL Hct (39.0-53.0) % Plt Count (150-450) k/uL Neutrophils # (1.3-7.7) k/uL Lymphocytes # (1.0-4.8) k/uL PT 15.4 H (9.0-12.0) sec APTT 42.6 H (22.0-30.0) sec Fibrinogen (200-500) mg/dL ABG pH (7.35-7.45) ABG pCO2 (35-45) mmHg ABG pO2 (83-108) mmHg ABG Total CO2 (19-24) mmol/L ABG O2 Saturation (94-97) % ABG Hematocrit (34.0-46.0) % ABG Potassium (3.4-4.5) mmol/L Chloride (98-107) mmol/L Glucose (74-99) mg/dL POC Glucose (mg/dL) 163 H 163 H (75-99) mg/dL Calcium (8.4-10.2) mg/dL Ionized Calcium Abimael (4.5-5.3) mg/dL Total Bilirubin (0.2-1.3) mg/dL AST (17-59) U/L Alkaline Phosphatase (38-126) U/L Total Protein (6.3-8.2) g/dL Albumin (3.5-5.0) g/dL Arterial Blood Potassium (3.4-4.5) mmol/L Crossmatch 01/15/17 01/15/17 01/15/17 Range/Units 18:03 18:35 18:47 WBC 12.0 H (3.8-10.6) k/uL RBC 2.93 L (4.30-5.90) m/uL Hgb 9.3 L (13.0-17.5) gm/dL Hct 26.0 L (39.0-53.0) % Plt Count 134 L (150-450) k/uL Neutrophils # 10.1 H (1.3-7.7) k/uL Lymphocytes # (1.0-4.8) k/uL PT (9.0-12.0) sec APTT (22.0-30.0) sec Fibrinogen (200-500) mg/dL ABG pH (7.35-7.45) ABG pCO2 (35-45) mmHg ABG pO2 (83-108) mmHg ABG Total CO2 (19-24) mmol/L ABG O2 Saturation (94-97) % ABG Hematocrit (34.0-46.0) % ABG Potassium (3.4-4.5) mmol/L Chloride (98-107) mmol/L Glucose (74-99) mg/dL POC Glucose (mg/dL) 143 H 126 H (75-99) mg/dL Calcium (8.4-10.2) mg/dL Ionized Calcium Abimael (4.5-5.3) mg/dL Total Bilirubin (0.2-1.3) mg/dL AST (17-59) U/L Alkaline Phosphatase (38-126) U/L Total Protein (6.3-8.2) g/dL Albumin (3.5-5.0) g/dL Arterial Blood Potassium (3.4-4.5) mmol/L Crossmatch 01/15/17 01/15/17 01/15/17 Range/Units 19:28 20:04 20:57 WBC (3.8-10.6) k/uL RBC (4.30-5.90) m/uL Hgb (13.0-17.5) gm/dL Hct (39.0-53.0) % Plt Count (150-450) k/uL Neutrophils # (1.3-7.7) k/uL Lymphocytes # (1.0-4.8) k/uL PT (9.0-12.0) sec APTT (22.0-30.0) sec Fibrinogen (200-500) mg/dL ABG pH (7.35-7.45) ABG pCO2 (35-45) mmHg ABG pO2 (83-108) mmHg ABG Total CO2 (19-24) mmol/L ABG O2 Saturation 98.0 H (94-97) % ABG Hematocrit (34.0-46.0) % ABG Potassium (3.4-4.5) mmol/L Chloride (98-107) mmol/L Glucose (74-99) mg/dL POC Glucose (mg/dL) 148 H 132 H (75-99) mg/dL Calcium (8.4-10.2) mg/dL Ionized Calcium Abimael (4.5-5.3) mg/dL Total Bilirubin (0.2-1.3) mg/dL AST (17-59) U/L Alkaline Phosphatase (38-126) U/L Total Protein (6.3-8.2) g/dL Albumin (3.5-5.0) g/dL Arterial Blood Potassium (3.4-4.5) mmol/L Crossmatch 01/15/17 01/15/17 01/15/17 Range/Units 20:58 20:58 20:58 WBC 12.3 H (3.8-10.6) k/uL RBC 2.89 L (4.30-5.90) m/uL Hgb 8.7 L (13.0-17.5) gm/dL Hct 25.7 L (39.0-53.0) % Plt Count 131 L (150-450) k/uL Neutrophils # 10.8 H (1.3-7.7) k/uL Lymphocytes # 0.7 L (1.0-4.8) k/uL PT 12.7 H (9.0-12.0) sec APTT (22.0-30.0) sec Fibrinogen (200-500) mg/dL ABG pH (7.35-7.45) ABG pCO2 (35-45) mmHg ABG pO2 (83-108) mmHg ABG Total CO2 (19-24) mmol/L ABG O2 Saturation (94-97) % ABG Hematocrit (34.0-46.0) % ABG Potassium (3.4-4.5) mmol/L Chloride (98-107) mmol/L Glucose 132 H (74-99) mg/dL POC Glucose (mg/dL) (75-99) mg/dL Calcium 7.7 L (8.4-10.2) mg/dL Ionized Calcium Abimael (4.5-5.3) mg/dL Total Bilirubin (0.2-1.3) mg/dL AST 62 H (17-59) U/L Alkaline Phosphatase 23 L (38-126) U/L Total Protein 4.8 L (6.3-8.2) g/dL Albumin 3.3 L (3.5-5.0) g/dL Arterial Blood Potassium (3.4-4.5) mmol/L Crossmatch 01/15/17 01/15/17 01/16/17 Range/Units 22:03 23:08 00:06 WBC (3.8-10.6) k/uL RBC (4.30-5.90) m/uL Hgb (13.0-17.5) gm/dL Hct (39.0-53.0) % Plt Count (150-450) k/uL Neutrophils # (1.3-7.7) k/uL Lymphocytes # (1.0-4.8) k/uL PT (9.0-12.0) sec APTT (22.0-30.0) sec Fibrinogen (200-500) mg/dL ABG pH (7.35-7.45) ABG pCO2 (35-45) mmHg ABG pO2 (83-108) mmHg ABG Total CO2 (19-24) mmol/L ABG O2 Saturation (94-97) % ABG Hematocrit (34.0-46.0) % ABG Potassium (3.4-4.5) mmol/L Chloride (98-107) mmol/L Glucose (74-99) mg/dL POC Glucose (mg/dL) 120 H 124 H 121 H (75-99) mg/dL Calcium (8.4-10.2) mg/dL Ionized Calcium Abimael (4.5-5.3) mg/dL Total Bilirubin (0.2-1.3) mg/dL AST (17-59) U/L Alkaline Phosphatase (38-126) U/L Total Protein (6.3-8.2) g/dL Albumin (3.5-5.0) g/dL Arterial Blood Potassium (3.4-4.5) mmol/L Crossmatch 01/16/17 01/16/17 01/16/17 Range/Units 01:03 02:13 03:08 WBC (3.8-10.6) k/uL RBC (4.30-5.90) m/uL Hgb (13.0-17.5) gm/dL Hct (39.0-53.0) % Plt Count (150-450) k/uL Neutrophils # (1.3-7.7) k/uL Lymphocytes # (1.0-4.8) k/uL PT (9.0-12.0) sec APTT (22.0-30.0) sec Fibrinogen (200-500) mg/dL ABG pH (7.35-7.45) ABG pCO2 (35-45) mmHg ABG pO2 (83-108) mmHg ABG Total CO2 (19-24) mmol/L ABG O2 Saturation (94-97) % ABG Hematocrit (34.0-46.0) % ABG Potassium (3.4-4.5) mmol/L Chloride (98-107) mmol/L Glucose (74-99) mg/dL POC Glucose (mg/dL) 121 H 113 H 118 H (75-99) mg/dL Calcium (8.4-10.2) mg/dL Ionized Calcium Abimael (4.5-5.3) mg/dL Total Bilirubin (0.2-1.3) mg/dL AST (17-59) U/L Alkaline Phosphatase (38-126) U/L Total Protein (6.3-8.2) g/dL Albumin (3.5-5.0) g/dL Arterial Blood Potassium (3.4-4.5) mmol/L Crossmatch 01/16/17 01/16/17 01/16/17 Range/Units 04:11 05:10 05:20 WBC 12.2 H (3.8-10.6) k/uL RBC 2.68 L (4.30-5.90) m/uL Hgb 8.1 L (13.0-17.5) gm/dL Hct 23.9 L (39.0-53.0) % Plt Count 130 L (150-450) k/uL Neutrophils # 9.9 H (1.3-7.7) k/uL Lymphocytes # (1.0-4.8) k/uL PT (9.0-12.0) sec APTT (22.0-30.0) sec Fibrinogen (200-500) mg/dL ABG pH (7.35-7.45) ABG pCO2 (35-45) mmHg ABG pO2 (83-108) mmHg ABG Total CO2 (19-24) mmol/L ABG O2 Saturation (94-97) % ABG Hematocrit (34.0-46.0) % ABG Potassium (3.4-4.5) mmol/L Chloride (98-107) mmol/L Glucose (74-99) mg/dL POC Glucose (mg/dL) 133 H 137 H (75-99) mg/dL Calcium (8.4-10.2) mg/dL Ionized Calcium Abimael (4.5-5.3) mg/dL Total Bilirubin (0.2-1.3) mg/dL AST (17-59) U/L Alkaline Phosphatase (38-126) U/L Total Protein (6.3-8.2) g/dL Albumin (3.5-5.0) g/dL Arterial Blood Potassium (3.4-4.5) mmol/L Crossmatch 01/16/17 01/16/17 01/16/17 Range/Units 05:20 05:20 06:09 WBC (3.8-10.6) k/uL RBC (4.30-5.90) m/uL Hgb (13.0-17.5) gm/dL Hct (39.0-53.0) % Plt Count (150-450) k/uL Neutrophils # (1.3-7.7) k/uL Lymphocytes # (1.0-4.8) k/uL PT 12.4 H (9.0-12.0) sec APTT (22.0-30.0) sec Fibrinogen (200-500) mg/dL ABG pH (7.35-7.45) ABG pCO2 (35-45) mmHg ABG pO2 (83-108) mmHg ABG Total CO2 (19-24) mmol/L ABG O2 Saturation (94-97) % ABG Hematocrit (34.0-46.0) % ABG Potassium (3.4-4.5) mmol/L Chloride (98-107) mmol/L Glucose 125 H (74-99) mg/dL POC Glucose (mg/dL) 129 H (75-99) mg/dL Calcium 7.8 L (8.4-10.2) mg/dL Ionized Calcium Abimael 4.4 L (4.5-5.3) mg/dL Total Bilirubin (0.2-1.3) mg/dL AST 73 H (17-59) U/L Alkaline Phosphatase 23 L (38-126) U/L Total Protein 4.9 L (6.3-8.2) g/dL Albumin (3.5-5.0) g/dL Arterial Blood Potassium (3.4-4.5) mmol/L Crossmatch 01/16/17 01/16/17 01/16/17 Range/Units 07:04 08:08 08:52 WBC (3.8-10.6) k/uL RBC (4.30-5.90) m/uL Hgb (13.0-17.5) gm/dL Hct (39.0-53.0) % Plt Count (150-450) k/uL Neutrophils # (1.3-7.7) k/uL Lymphocytes # (1.0-4.8) k/uL PT (9.0-12.0) sec APTT (22.0-30.0) sec Fibrinogen (200-500) mg/dL ABG pH (7.35-7.45) ABG pCO2 (35-45) mmHg ABG pO2 (83-108) mmHg ABG Total CO2 (19-24) mmol/L ABG O2 Saturation (94-97) % ABG Hematocrit (34.0-46.0) % ABG Potassium (3.4-4.5) mmol/L Chloride (98-107) mmol/L Glucose (74-99) mg/dL POC Glucose (mg/dL) 127 H 123 H 121 H (75-99) mg/dL Calcium (8.4-10.2) mg/dL Ionized Calcium Abimael (4.5-5.3) mg/dL Total Bilirubin (0.2-1.3) mg/dL AST (17-59) U/L Alkaline Phosphatase (38-126) U/L Total Protein (6.3-8.2) g/dL Albumin (3.5-5.0) g/dL Arterial Blood Potassium (3.4-4.5) mmol/L Crossmatch 01/16/17 Range/Units 10:33 WBC (3.8-10.6) k/uL RBC (4.30-5.90) m/uL Hgb (13.0-17.5) gm/dL Hct (39.0-53.0) % Plt Count (150-450) k/uL Neutrophils # (1.3-7.7) k/uL Lymphocytes # (1.0-4.8) k/uL PT (9.0-12.0) sec APTT (22.0-30.0) sec Fibrinogen (200-500) mg/dL ABG pH (7.35-7.45) ABG pCO2 (35-45) mmHg ABG pO2 (83-108) mmHg ABG Total CO2 (19-24) mmol/L ABG O2 Saturation (94-97) % ABG Hematocrit (34.0-46.0) % ABG Potassium (3.4-4.5) mmol/L Chloride (98-107) mmol/L Glucose (74-99) mg/dL POC Glucose (mg/dL) 146 H (75-99) mg/dL Calcium (8.4-10.2) mg/dL Ionized Calcium Abimael (4.5-5.3) mg/dL Total Bilirubin (0.2-1.3) mg/dL AST (17-59) U/L Alkaline Phosphatase (38-126) U/L Total Protein (6.3-8.2) g/dL Albumin (3.5-5.0) g/dL Arterial Blood Potassium (3.4-4.5) mmol/L Crossmatch - Imaging and Cardiology Chest x-ray: report reviewed, image reviewed Assessment and Plan (1) Severe aortic stenosis Status: Acute (2) Ascending aorta dilatation Status: Acute (3) Status post mechanical aortic valve replacement Status: Acute Plan: 1. Continue aspirin, Plavix, statin, beta margarette with hold parameters. 2. Encourage incentive spirometry use. 3. Increase activity, out of bed in chair all day. Physical therapy to follow 4. GI/DVT prophylaxis. 5. Monitor labs, I/Os 6. Wean O2 as tolerated. 7. DC [place]. 8. May transition from IV insulin to subcu insulin per primary service. 9. Toradol added for pain control. 10. More recommendations as patient progresses. Time with Patient: Greater than 30
--- NOTE | 2017-01-16 10:52 | P.CNPUL ---
History of Present Illness Consult date: 01/16/17 Reason for consult: other Chief complaint: Status post aortic valve replacement for bicuspid aortic valve and abnormal History of present illness: This is a 26-year-old white male who apparently was noted to have aortic valve disease. Underwent a mechanical aortic valve replacement yesterday. Also apparently had aortic aneurysm that was repaired. The patient's doing well. The patient's currently just on O2 at 2 L. Receiving lactated Ringer's at 30 mL an hour. Also on insulin drip at 124 units an hour. Today's postop day #1. The patient's feeling well. States that he is only medical problem was his aortic valve disease. His primary doctor is Dr. Tej Damian in [place]. No particular complaints today. Hemodynamics are stable. Respiratory status is stable. Review of Systems A 12 point review of system is positive for pain in the chest area but other than that no major issues or complaints. He is otherwise feeling well. A little groggy still. Past Medical History Additional Past Medical History / Comment(s): Born with bicupsid-aortic valve so has murmur, migraines History of Any Multi-Drug Resistant Organisms: None Reported Past Surgical History: Heart Catheterization, Hernia Repair Additional Past Surgical History / Comment(s): bilateral inguinal hernia repairs as infant Past Anesthesia/Blood Transfusion Reactions: No Reported Reaction Additional Past Anesthesia/Blood Transfusion Reaction / Comment(s): no hx blood transfusion Past Psychological History: No Psychological Hx Reported Additional Psychological History / Comment(s): . Smoking Status: Former smoker Past Alcohol Use History: Occasional Additional Past Alcohol Use History / Comment(s): quit smoking 2015,smoked approx 2 yrs <1ppd. Past Drug Use History: None Reported - Past Family History Father History Unknown: Yes Family Medical History: No Reported History Additional Family Medical History / Comment(s): Father is healthy and in his 50' s Mother History Unknown: Yes Family Medical History: No Reported History Additional Family Medical History / Comment(s): Mother is healthy and in her 50' s. Medications and Allergies Home Medications Medication Instructions Recorded Confirmed Type Atenolol [Tenormin] 25 mg PO BID 01/03/17 01/15/17 History Ibuprofen [Motrin] 200 - 400 mg PO Q6HR PRN 01/03/17 01/15/17 History SUMAtriptan SUCCINATE [Imitrex] 25 mg PO DAILY PRN 01/03/17 01/15/17 History Aspirin [Adult Low Dose Aspirin EC] 4 tab PO ONCE 01/15/17 01/15/17 History Allergies Allergy/AdvReac Type Severity Reaction Status Date / Time No Known Allergies Allergy Verified 01/10/17 11:07 Physical Exam Osteopathic Statement: *. No significant issues noted on an osteopathic structural exam other than those noted in the History and Physical/Consult. Vitals: Vital Signs Temp Pulse Resp BP Pulse Ox 01/16/17 10:30 81 14 98/52 97 01/16/17 10:00 90 14 98/53 01/16/17 09:30 90 98/53 98 01/16/17 09:00 94 99/53 98 01/16/17 08:30 93 99/53 98 01/16/17 08:00 97.9 F 96 14 99/53 98 01/16/17 07:30 98 99/53 98 01/16/17 07:00 92 22 99/53 98 01/16/17 06:30 93 20 90 L 01/16/17 06:00 99 22 91 L 01/16/17 05:30 100 20 91 L 01/16/17 05:00 97 20 92 L 01/16/17 04:30 104 H 24 93 L 01/16/17 04:00 112 H 22 95 01/16/17 03:30 93 20 98 01/16/17 03:00 95 18 98 01/16/17 02:30 98 20 98 01/16/17 02:00 104 H 18 98 01/16/17 01:30 97 20 97 01/16/17 01:00 95 22 98 01/16/17 00:30 94 20 99 01/16/17 00:00 97 18 99 01/15/17 23:30 102 H 20 100 01/15/17 23:13 96 20 99 01/15/17 23:00 98 18 99 01/15/17 22:30 98 20 98 01/15/17 22:00 97 22 98 01/15/17 21:30 95 20 98 01/15/17 21:00 96 22 97 01/15/17 20:30 97 20 95 01/15/17 20:00 96 22 94 L 01/15/17 19:30 93 99 01/15/17 19:20 86 100 01/15/17 19:10 91 99 01/15/17 19:00 93 100 01/15/17 18:50 92 100 01/15/17 18:40 87 100 01/15/17 18:30 85 100 01/15/17 18:20 88 100 01/15/17 18:10 85 100 01/15/17 18:00 88 14 100 01/15/17 17:50 88 100 01/15/17 17:40 82 100 01/15/17 17:30 83 104/64 100 01/15/17 17:20 85 104/64 100 01/15/17 17:10 85 104/64 100 01/15/17 17:00 85 14 104/64 100 01/15/17 16:50 83 104/64 100 01/15/17 16:40 82 104/64 100 01/15/17 16:30 84 104/64 100 01/15/17 16:20 84 104/64 100 01/15/17 16:13 82 01/15/17 16:10 83 104/64 100 01/15/17 16:00 82 14 104/64 97 01/15/17 15:55 82 01/15/17 15:50 79 104/64 01/15/17 15:40 79 104/64 01/15/17 15:30 78 119/62 01/15/17 15:20 85 01/15/17 15:18 86 Intake and Output 01/15/17 01/16/17 01/16/17 22:59 06:59 14:59 Intake Total 433.687 0009.267 682 Output Total 1117 523 360 Balance -799.401 0409.267 322 Intake: IV 279 1548 422 0.9 saline flush 39 48 12 ACETAMINOPHEN IV (For NPO 200 ) 1,000 mg In Empty Bag 1 bag @ 400 mls/hr IVPB Q6HR [facility] Rx#:[id number] Albumin Human 5% 250 ml 750 250 In Empty Bag 1 bag @ 250 mls/hr IVPB Q1HR PRN Rx#: [id number] Lactated Ringers 1,000 ml 150 390 140 @ 50 mls/hr IV .Q20H [facility] Rx#:[id number] cardiac output 90 60 20 ceFAZolin 2 gm In Sodium 100 Chloride 0.9% 100 ml @ 100 mls/hr IVPB Q8HR [facility] Rx#:[id number] Intake, IV Titration 341.225 6.267 200 Amount Calcium Gluconate 2,000 100 mg In Sodium Chloride 0.9 % 100 ml @ 100 mls/hr IVPB ONCE ONE Rx#: [id number] Clevidipine Butyrate 25 7.8 mg In Empty Bag 1 bag @ 1 MG/HR 2 mls/hr IV .Q24H [facility] Rx#:[id number] Insulin Regular 100 unit 13.425 6.267 In Sodium Chloride 0.9% 100 ml @ Per Protocol IV .Q0M [facility] Rx#:[id number] Lactated Ringers 1,000 ml 170 @ 50 mls/hr IV .Q20H [facility] Rx#:[id number] Propofol 500 mg In Empty 50 Bag 1 bag @ Titrate IV . Q0M [facility] Rx#:[id number] ceFAZolin 2 gm In Sodium 100 100 Chloride 0.9% 100 ml @ 100 mls/hr IVPB Q8HR [facility] Rx#:[id number] Oral 120 300 60 Output: Chest Tube Drainage 656 296 230 Mediastinal 181 182 140 Pleural Catheter Left 350 70 80 Pleural Catheter Right 125 44 10 Urine 461 227 130 Other: Voiding Method Indwelling Catheter Indwelling Catheter Weight 85.5 kg ABP, PAP, CO, CI - Last 8 Hours Arterial Blood Pressure 78/46 Arterial Blood Pressure 95/56 Arterial Blood Pressure 89/45 Arterial Blood Pressure 90/45 Arterial Blood Pressure 95/44 Arterial Blood Pressure 99/45 Arterial Blood Pressure 88/45 Arterial Blood Pressure 84/43 Arterial Blood Pressure 82/39 Arterial Blood Pressure 89/46 Arterial Blood Pressure 84/46 Arterial Blood Pressure 82/45 Arterial Blood Pressure 108/58 Arterial Blood Pressure 117/58 Arterial Blood Pressure 100/53 Arterial Blood Pressure 102/51 Pulmonary Artery Pressure 15/9 Pulmonary Artery Pressure 17/9 Pulmonary Artery Pressure 13/8 Pulmonary Artery Pressure 18/12 Pulmonary Artery Pressure 17/11 Pulmonary Artery Pressure 16/9 Pulmonary Artery Pressure 20/11 Pulmonary Artery Pressure 18/10 Pulmonary Artery Pressure 19/12 Pulmonary Artery Pressure 16/9 Pulmonary Artery Pressure 32/25 Pulmonary Artery Pressure 30/22 Pulmonary Artery Pressure 22/16 Pulmonary Artery Pressure 21/14 Cardiac Output 4.8 Cardiac Output 4.8 Cardiac Output 4.8 Cardiac Output 4.8 Cardiac Output 6.8 Cardiac Output 6.8 Cardiac Output 6.8 Cardiac Output 6.8 Cardiac Output 6.8 Cardiac Output 6.8 Cardiac Output 6.8 Cardiac Output 6.4 Cardiac Output 6.4 Cardiac Output 6.4 Cardiac Index 2.6 Cardiac Index 3.7 No acute distress, oriented 3. Wearing nasal O2. HEENT examination is grossly unremarkable. Mucous membranes are moist. No oral lesions. Next Supple. Full range of motion. No adenopathy. Next Cardiovascular examination reveals regular rhythm rate. S1-S2 normal. Next Lungs are clear breath sounds are equal. Abdomen soft. Extremities are intact. Results - Laboratory Findings CBC and BMP: 01/16/17 05:20 01/16/17 05:20 ABG ABG pH 7.41 (7.35-7.45) 01/15/17 19:28 ABG pCO2 36 mmHg (35-45) 01/15/17 19:28 ABG pO2 107 mmHg (83-108) 01/15/17 19:28 ABG O2 Saturation 98.0 % (94-97) H 01/15/17 19:28 PT/INR, D-dimer PT 12.4 sec (9.0-12.0) H 01/16/17 05:20 INR 1.3 (<1.1) 01/16/17 05:20 Abnormal lab findings: Abnormal Labs 01/11/17 01/15/17 01/15/17 15:02 08:31 08:32 WBC RBC Hgb Hct Plt Count Neutrophils # Lymphocytes # PT APTT Fibrinogen ABG pH 7.50 H ABG pCO2 28 L ABG pO2 398 H ABG Total CO2 ABG O2 Saturation 100.0 H ABG Hematocrit ABG Potassium Chloride Glucose POC Glucose (mg/dL) 104 H Calcium Ionized Calcium Abimael Total Bilirubin AST Alkaline Phosphatase Total Protein Albumin Arterial Blood Potassium Crossmatch See Detail 01/15/17 01/15/17 01/15/17 09:35 10:15 10:16 WBC RBC Hgb Hct Plt Count Neutrophils # Lymphocytes # PT APTT Fibrinogen ABG pH 7.47 H ABG pCO2 31 L ABG pO2 244 H 234 H ABG Total CO2 26 H ABG O2 Saturation 99.9 H 99.8 H ABG Hematocrit 24 L ABG Potassium 5.1 H Chloride Glucose POC Glucose (mg/dL) 236 H Calcium Ionized Calcium Abimael Total Bilirubin AST Alkaline Phosphatase Total Protein Albumin Arterial Blood Potassium 5.1 H Crossmatch 01/15/17 01/15/17 01/15/17 10:49 10:50 11:35 WBC RBC Hgb Hct Plt Count Neutrophils # Lymphocytes # PT APTT Fibrinogen ABG pH ABG pCO2 ABG pO2 351 H ABG Total CO2 26 H ABG O2 Saturation 99.9 H ABG Hematocrit 26 L ABG Potassium Chloride Glucose POC Glucose (mg/dL) 260 H 173 H Calcium Ionized Calcium Abimael Total Bilirubin AST Alkaline Phosphatase Total Protein Albumin Arterial Blood Potassium Crossmatch 01/15/17 01/15/17 01/15/17 11:36 13:33 13:35 WBC RBC Hgb Hct Plt Count Neutrophils # Lymphocytes # PT APTT Fibrinogen ABG pH 7.32 L ABG pCO2 34 L ABG pO2 343 H >420 H ABG Total CO2 ABG O2 Saturation 99.9 H 100.0 H ABG Hematocrit 27 L 29 L ABG Potassium Chloride Glucose POC Glucose (mg/dL) 131 H Calcium Ionized Calcium Abimael Total Bilirubin AST Alkaline Phosphatase Total Protein Albumin Arterial Blood Potassium Crossmatch 01/15/17 01/15/17 01/15/17 15:30 15:33 15:35 WBC RBC Hgb Hct Plt Count Neutrophils # Lymphocytes # PT APTT Fibrinogen 80 L* ABG pH ABG pCO2 ABG pO2 300 H ABG Total CO2 ABG O2 Saturation 99.9 H ABG Hematocrit ABG Potassium Chloride Glucose POC Glucose (mg/dL) 146 H Calcium Ionized Calcium Abimael Total Bilirubin AST Alkaline Phosphatase Total Protein Albumin Arterial Blood Potassium Crossmatch 01/15/17 01/15/17 01/15/17 15:35 15:35 15:35 WBC 11.5 H RBC 2.92 L Hgb 9.0 L D Hct 25.8 L Plt Count 106 L Neutrophils # 8.7 H Lymphocytes # PT 15.4 H APTT 42.6 H Fibrinogen ABG pH ABG pCO2 ABG pO2 ABG Total CO2 ABG O2 Saturation ABG Hematocrit ABG Potassium Chloride 108 H Glucose 136 H POC Glucose (mg/dL) Calcium 7.3 L Ionized Calcium Abimael Total Bilirubin 2.0 H AST Alkaline Phosphatase 23 L Total Protein 4.4 L Albumin 3.1 L Arterial Blood Potassium Crossmatch 01/15/17 01/15/17 01/15/17 16:01 17:01 18:03 WBC RBC Hgb Hct Plt Count Neutrophils # Lymphocytes # PT APTT Fibrinogen ABG pH ABG pCO2 ABG pO2 ABG Total CO2 ABG O2 Saturation ABG Hematocrit ABG Potassium Chloride Glucose POC Glucose (mg/dL) 163 H 163 H 143 H Calcium Ionized Calcium Abimael Total Bilirubin AST Alkaline Phosphatase Total Protein Albumin Arterial Blood Potassium Crossmatch 01/15/17 01/15/17 01/15/17 18:35 18:47 19:28 WBC 12.0 H RBC 2.93 L Hgb 9.3 L Hct 26.0 L Plt Count 134 L Neutrophils # 10.1 H Lymphocytes # PT APTT Fibrinogen ABG pH ABG pCO2 ABG pO2 ABG Total CO2 ABG O2 Saturation 98.0 H ABG Hematocrit ABG Potassium Chloride Glucose POC Glucose (mg/dL) 126 H Calcium Ionized Calcium Abimael Total Bilirubin AST Alkaline Phosphatase Total Protein Albumin Arterial Blood Potassium Crossmatch 01/15/17 01/15/17 01/15/17 20:04 20:57 20:58 WBC RBC Hgb Hct Plt Count Neutrophils # Lymphocytes # PT APTT Fibrinogen ABG pH ABG pCO2 ABG pO2 ABG Total CO2 ABG O2 Saturation ABG Hematocrit ABG Potassium Chloride Glucose 132 H POC Glucose (mg/dL) 148 H 132 H Calcium 7.7 L Ionized Calcium Abimael Total Bilirubin AST 62 H Alkaline Phosphatase 23 L Total Protein 4.8 L Albumin 3.3 L Arterial Blood Potassium Crossmatch 01/15/17 01/15/17 01/15/17 20:58 20:58 22:03 WBC 12.3 H RBC 2.89 L Hgb 8.7 L Hct 25.7 L Plt Count 131 L Neutrophils # 10.8 H Lymphocytes # 0.7 L PT 12.7 H APTT Fibrinogen ABG pH ABG pCO2 ABG pO2 ABG Total CO2 ABG O2 Saturation ABG Hematocrit ABG Potassium Chloride Glucose POC Glucose (mg/dL) 120 H Calcium Ionized Calcium Abimael Total Bilirubin AST Alkaline Phosphatase Total Protein Albumin Arterial Blood Potassium Crossmatch 01/15/17 01/16/17 01/16/17 23:08 00:06 01:03 WBC RBC Hgb Hct Plt Count Neutrophils # Lymphocytes # PT APTT Fibrinogen ABG pH ABG pCO2 ABG pO2 ABG Total CO2 ABG O2 Saturation ABG Hematocrit ABG Potassium Chloride Glucose POC Glucose (mg/dL) 124 H 121 H 121 H Calcium Ionized Calcium Abimael Total Bilirubin AST Alkaline Phosphatase Total Protein Albumin Arterial Blood Potassium Crossmatch 01/16/17 01/16/17 01/16/17 02:13 03:08 04:11 WBC RBC Hgb Hct Plt Count Neutrophils # Lymphocytes # PT APTT Fibrinogen ABG pH ABG pCO2 ABG pO2 ABG Total CO2 ABG O2 Saturation ABG Hematocrit ABG Potassium Chloride Glucose POC Glucose (mg/dL) 113 H 118 H 133 H Calcium Ionized Calcium Abimael Total Bilirubin AST Alkaline Phosphatase Total Protein Albumin Arterial Blood Potassium Crossmatch 01/16/17 01/16/17 01/16/17 05:10 05:20 05:20 WBC 12.2 H RBC 2.68 L Hgb 8.1 L Hct 23.9 L Plt Count 130 L Neutrophils # 9.9 H Lymphocytes # PT APTT Fibrinogen ABG pH ABG pCO2 ABG pO2 ABG Total CO2 ABG O2 Saturation ABG Hematocrit ABG Potassium Chloride Glucose 125 H POC Glucose (mg/dL) 137 H Calcium 7.8 L Ionized Calcium Abimael 4.4 L Total Bilirubin AST 73 H Alkaline Phosphatase 23 L Total Protein 4.9 L Albumin Arterial Blood Potassium Crossmatch 01/16/17 01/16/17 01/16/17 05:20 06:09 07:04 WBC RBC Hgb Hct Plt Count Neutrophils # Lymphocytes # PT 12.4 H APTT Fibrinogen ABG pH ABG pCO2 ABG pO2 ABG Total CO2 ABG O2 Saturation ABG Hematocrit ABG Potassium Chloride Glucose POC Glucose (mg/dL) 129 H 127 H Calcium Ionized Calcium Abimael Total Bilirubin AST Alkaline Phosphatase Total Protein Albumin Arterial Blood Potassium Crossmatch 01/16/17 01/16/17 01/16/17 08:08 08:52 10:33 WBC RBC Hgb Hct Plt Count Neutrophils # Lymphocytes # PT APTT Fibrinogen ABG pH ABG pCO2 ABG pO2 ABG Total CO2 ABG O2 Saturation ABG Hematocrit ABG Potassium Chloride Glucose POC Glucose (mg/dL) 123 H 121 H 146 H Calcium Ionized Calcium Abimael Total Bilirubin AST Alkaline Phosphatase Total Protein Albumin Arterial Blood Potassium Crossmatch - Diagnostic Findings Chest x-ray: image reviewed (Labs x-rays and medications are all reviewed.) Assessment and Plan Plan: Assessment and plan Status post aortic valve replacement with mechanical valve for somebody with bicuspid aortic valve aortic stenosis and aortic aneurysm. Postoperative respiratory failure, resolved Plan The patient will be followed. No discharge recommendations are made. He'll continue on updrafts and incentive spirometry. Because of his relatively use, and his health, he should do well and recover quickly. Time with Patient: Greater than 30
[2017-01-16] MEDS: METOCLOPRAMIDE 5 MG/ML 2 ML VIAL IVP PRN (11:19)
[2017-01-16 12:07] LABS: Glucose,Whole Blood 128 mg/dL (75-99)
[2017-01-16] MEDS: CLEVIDIPINE BUTYRATE 25 MG in EMPTY BAG 1 BAG IV SCH (12:34)
[2017-01-16 13:53] LABS: Glucose,Whole Blood 123 mg/dL (75-99)
[2017-01-16] MEDS ORDERED: BISACODYL 10 MG SUPP RECTAL PRN (14:30)
[2017-01-16] MEDS ORDERED: MAGNESIUM HYDROXIDE 2,400 MG/10 ML CUP PO PRN (14:30)
[2017-01-16] MEDS ORDERED: IPRATROPIUM-ALBUTEROL 3 ML NEB INHALATION PRN (14:32)
[2017-01-16 17:17] LABS: Glucose,Whole Blood 104 mg/dL (75-99)
[2017-01-16] MEDS: INSULIN LISPRO (humaLOG) 300 UNIT/3 ML VIAL SQ SCH ×2 (17:27→21:45)
--- NOTE | 2017-01-16 18:29 | CONS ---
DATE OF CONSULTATION: Mr. Ashraf is a 26-year-old gentleman who is seen for cardiac evaluation and followup after aortic valve replacement. This patient was recently found to have bicuspid aortic valve, ascending aortic aneurysm, and patient underwent aortic valve replacement as well as replacement of the ascending aorta. The operative report was reviewed. Patient had episodes of ventricular fibrillation as he was coming off the pump and required multiple shocks. There was some evidence of ST-segment elevation in the inferior leads initially, but there was a good flow noted in the ostium of the right coronary artery, and subsequently ST-segment subsided. Patient now has remained hemodynamically stable. He is not having any chest pain. He is extubated. Past medical history includes bilateral inguinal hernia repair. SOCIAL HISTORY: Patient is a former smoker. Patient's home medications included Imitrex and Tenormin. Physical examination at present reveals a 26-year-old gentleman who is fairly built, does not appear to be in any acute respiratory distress. Blood pressure is 100/51 mmHg. Patient is off any drips. Heart rate is 75 per minute. Head/ENT examination is negative. Neck is supple. There is no increase in jugular venous pressure. Both the carotid pulses are felt. There is no bruit. Chest is symmetrical. HEART: The PMI is not felt. First and second heart sounds are heard. Prosthetic sounds are well heard. Lungs reveal a few scattered wheezes. Abdomen is soft. EXTREMITIES: Peripheral pulsations are 1+. EKG shows normal sinus rhythm with diffuse J-point elevation which may be suggestive of pericarditis. Patient's electrolytes are normal. Creatinine is 0.7. ALT and AST are normal. Hemoglobin is 8.1. FINAL IMPRESSION: This patient is status post aortic valve replacement and replacement of the ascending aorta. Patient at present is hemodynamically stable. No arrhythmias are noted. EKG shows diffuse J-point elevation suggestive of pericarditis or early repolarization. We will continue the current medications. We will do the echocardiogram tomorrow to assess the valvular function as well as any wall motion abnormality.
--- NOTE | 2017-01-16 18:58 | CONS ---
DATE OF CONSULTATION: REASON FOR CONSULTATION: Blood sugar management. Patient is a 26-year-old with aortocoronary disease without any diabetes mellitus. He is admitted for congenital aortic valve problems, including aortic stenosis. Patient underwent aortic valve replacement. Patient is clinically doing well. Patient is complaining of some nausea. Patient is on lactated Ringer's and patient is on insulin drip, which I will discontinue. I will obtain a hemoglobin A1C. Patient will be started on 10 units of Lantus along with sliding scale insulin. Patient is not eating at this point of time. Patient denied any fever or chills. Patient denied any nausea, vomiting, abdominal pain. REVIEW OF SYSTEMS: CONSTITUTIONAL: No fever, no malaise, no fatigue. HEENT: No recent visual problems or hearing problems. Denied any sore throat. CARDIOVASCULAR: Chest wall pain post surgery. PULMONARY: No shortness of breath, no cough, no hemoptysis. GASTROINTESTINAL: Some nausea. NEUROLOGICAL: No headaches, no weakness, no numbness. HEMATOLOGICAL: Denies any bleeding or petechiae. GENITOURINARY: Denies any burning micturition, frequency, or urgency. MUSCULOSKELETAL/RHEUMATOLOGICAL: Denies any joint pain, swelling, or any muscle pain. ENDOCRINE: Denies any polyuria or polydipsia. The rest of the 14 point review of systems is negative. Patient's elevated blood sugars are probably due to milrinone he was receiving has D5 in it. Appropriately, hemoglobin A1C was already ordered. Past medical history is significant for aortic valve disease. PAST SURGICAL HISTORY: 1. Cardiac consideration. 2. Bilateral inguinal hernia repairs as a child. SOCIAL HISTORY: Occasional use of alcohol. Quit smoking in 2016. Smoked for approximately 2 years, 1 pack per day. FAMILY HISTORY: Father is healthy in his 50s. Mother is healthy in her 50s. HOME MEDICATIONS: 1. Atenolol. 2. Ibuprofen. 3. Sumatriptan. 4. Aspirin. ALLERGIES: NO KNOWN DRUG ALLERGIES. PHYSICAL EXAMINATION: VITAL SIGNS: Temperature 97.5, pulse of 77, respiratory rate of 14. Blood pressure is 98/59. Saturating at 99% on 2 L of oxygen by nasal cannula. GENERAL: Patient has a [place]-Marlon catheter, 3 chest tubes, one right, left and sternal tube. HEENT: Pupils are round and equally reacting to light. EOMI. No scleral icterus. No conjunctival pallor. Normocephalic, atraumatic. No pharyngeal erythema. No thyromegaly. CARDIOVASCULAR: S1 and S2 present. No murmurs, rubs, or gallops. PULMONARY: Chest is clear to auscultation, no wheezing or crackles. ABDOMEN: Soft, nontender, nondistended, normoactive bowel sounds. No palpable organomegaly. MUSCULOSKELETAL: No joint swelling or deformity. EXTREMITIES: No cyanosis, clubbing, or pedal edema. NEUROLOGICAL: Gross neurological examination did not reveal any focal deficits. SKIN: No rashes. LABORATORY DATA: CBC, CMP are abnormal for elevated WBC count of 12,200. Blood sugars are fairly well at this point of time because of IV insulin. ASSESSMENT AND PLAN: 1. Elevated blood sugars secondary to milrinone with D5. Will use sliding scale insulin. Will put him on 10 units of Lantus as long as he is on milrinone. 2. Status post aortic valve replacement. Management as per primary service. 3. Migraine. Continue with Sumatriptan on as-needed basis. 4. Nausea; appears to be postoperative nausea. 5. Leukocytosis without any signs or symptoms of infection; it is a reactive response from surgery. Reviewed the chest x-ray. Thank you for letting me participate in this patient's care. We will continue to follow the patient on an as-needed basis.
[2017-01-16] MEDS: HYDROcodone/APAP 5-325MG 1 EACH TAB PO PRN (19:50)
[2017-01-16] MEDS: SENNOSIDES-DOCUSATE SODIUM 1 EACH TAB PO SCH (20:37)
[2017-01-16 21:12] LABS: Glucose,Whole Blood 141 mg/dL (75-99)
[2017-01-16 22:59] LABS: Hemoglobin A1C 4.9 % (4.2-6.1)
[2017-01-17] MEDS: HYDROcodone/APAP 5-325MG 1 EACH TAB PO PRN ×6 (00:01→20:35)
[2017-01-17] MEDS: INSULIN LISPRO (humaLOG) 300 UNIT/3 ML VIAL SQ SCH ×5 (04:22→21:41)
[2017-01-17 04:24] LABS: Glucose,Whole Blood 142 mg/dL (75-99)
[2017-01-17 05:57] LABS: Basophils % (A) 0 %; CH 30.7; CHCM 34.5; Eosinophils # (A) 0.1 k/uL (0-0.7); Eosinophils % (A) 0 %; HCT 20.9 % (39.0-53.0); HDW 2.91; Luc # (Auto) 0.18; Luc % (Auto) 1; Lymphocytes # (A) 2.1 k/uL (1.0-4.8); Lymphocytes % (A) 17 %; MCHC 33.5 g/dL (31.0-37.0); MCV 89.4 fL (80.0-100.0); Mean Platelet Volume 8.5; Monocytes # (A) 0.7 k/uL (0-1.0); Monocytes % (A) 6 %; Neutrophils # (A) 9.7 k/uL (1.3-7.7); Neutrophils % (A) 76 %; RBC 2.34 m/uL (4.30-5.90); RDW 13.4 % (11.5-15.5); WBC 12.8 k/uL (3.8-10.6)
[2017-01-17 06:10] LABS: Ionized Calcium 4.6 mg/dL (4.5-5.3)
[2017-01-17 06:13] LABS: INR 1.4 (<1.1); Prothrombin Time 13.5 sec (9.0-12.0)
[2017-01-17 06:19] LABS: ALT 326 U/L (21-72); AST 426 U/L (17-59); Alkaline Phosphatase 25 U/L (38-126); Anion Gap 10 mmol/L; Blood Urea Nitrogen 22 mg/dL (9-20); Calcium 8.1 mg/dL (8.4-10.2); Carbon Dioxide 26 mmol/L (22-30); Chloride 101 mmol/L (98-107); Glucose 137 mg/dL (74-99); Magnesium 2.2 mg/dL (1.6-2.3); Non-African American GFR(MDRD) >60 (>60 ml/min/1.73 sqM); Potassium 4.7 mmol/L (3.5-5.1); Sodium 137 mmol/L (137-145); Total Bilirubin 0.9 mg/dL (0.2-1.3); Total Protein 5.1 g/dL (6.3-8.2)
[2017-01-17] MEDS: LACTATED RINGERS 1,000 ML IV SCH ×3 (06:47→16:29)
[2017-01-17] MEDS: KETOROLAC 30 MG/ML 1 ML VIAL IVP SCH ×4 (06:50→23:49)
[2017-01-17] MEDS: ONDANSETRON 4 MG/2 ML VIAL IVP PRN ×4 (06:50→23:48)
[2017-01-17 07:27] LABS: Glucose,Whole Blood 145 mg/dL (75-99)
--- NOTE | 2017-01-17 07:56 | XR ---
EXAMINATION TYPE: XR chest 1V portable DATE OF EXAM: 01/17/2017 6:37 AM COMPARISON: NONE INDICATION: Postoperative cardiac surgery TECHNIQUE: Single frontal view of the chest is obtained. FINDINGS: The heart size is normal. The pulmonary vasculature is normal. The lungs are clear. Bilateral chest tubes are present. Small left apical pneumothorax is present on the right central robina ous catheter sheath is present. [place]-Marlon catheter is been removed. IMPRESSION: 1. Small right apical pneumothorax of less than 10%. Report called to Jannette, the patient's nurse by Catalino Mazariegos by telephone at [phone] hours 01/29/2017 2. Bilateral chest tubes
[2017-01-17] MEDS: FERROUS SULFATE 325 MG TAB PO SCH ×2 (08:13→18:23)
[2017-01-17] MEDS: HEPARIN SODIUM,PORCINE 5,000 UNIT/ML 1 ML VIAL SQ SCH ×3 (08:14→23:48)
[2017-01-17] MEDS: CLOPIDOGREL 75 MG TAB PO SCH (08:14)
[2017-01-17] MEDS: ASPIRIN 325 MG TAB PO SCH (08:14)
[2017-01-17] MEDS: METOPROLOL TARTRATE 12.5 MG TAB PO SCH ×3 (08:15→20:36)
[2017-01-17] MEDS: PANTOPRAZOLE 40 MG/10 ML VIAL IVP SCH (08:15)
--- NOTE | 2017-01-17 09:25 | P.PN ---
Subjective Principal diagnosis: Severe aortic valve stenosis with bicuspid calcified aortic valve. 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 POD #2 aortic valve replacement using a 23 mm mechanical On-X valve bileaflet. Repair of the ascending aortic aneurysm with a supra-coronary conduit using a 30 mm Hemashield straight graft. Intraoperative transesophageal echocardiogram. Epi-aortic scanning. Patient currently sitting up in the chair, no apparent distress. States pain is better controlled. No questions at this time. Objective - Vital Signs Vital signs: Vital Signs Temp 98.4 F 01/17/17 09:00 Pulse 96 01/17/17 09:00 Resp 17 01/17/17 09:00 BP 96/59 01/17/17 09:00 Pulse Ox 97 01/17/17 09:00 Intake & Output 01/16/17 01/17/17 01/17/17 18:59 06:59 18:59 Intake Total 1252 480 132 Output Total 870 1257 91 Balance 382 -777 41 Weight 99 kg Intake: IV 992 480 132 0.9 saline flush 12 12 Albumin Human 5% 250 ml 500 In Empty Bag 1 bag @ 250 mls/hr IVPB Q1HR PRN Rx#: [id number] Lactated Ringers 1,000 ml 460 480 120 @ 20 mls/hr IV .Q24H [facility] Rx#:[id number] cardiac output 20 Intake, IV Titration 200 Amount Calcium Gluconate 2,000 100 mg In Sodium Chloride 0.9 % 100 ml @ 100 mls/hr IVPB ONCE ONE Rx#: [id number] ceFAZolin 2 gm In Sodium 100 Chloride 0.9% 100 ml @ 100 mls/hr IVPB Q8HR [facility] Rx#:[id number] Oral 60 Output: Chest Tube Drainage 430 930 10 Mediastinal 200 280 Pleural Catheter Left 120 260 10 Pleural Catheter Right 110 390 Urine 440 327 81 Other: Voiding Method Indwelling Catheter Indwelling Catheter ABP, PAP, CO, CI - Last Documented Arterial Blood Pressure 95/46 Pulmonary Artery Pressure 15/9 Cardiac Output 4.8 Cardiac Index 2.6 - Constitutional General appearance: Present: cooperative, no acute distress - Respiratory Details: Lungs sounds diminished bilaterally. Respirations even, nonlabored. Currently on 2 L nasal cannula. Able to achieve 750 mL on his incentive spirometry. Weak cough. Left, right, mediastinal chest tubes to -20 cm wall suction, draining serosanguineous fluid, no air leak present. Left pleural chest tube was 140 mL of drainage in the last 8 hours, 300 mL in the last 24 hours. Right pleural chest tube with 210 mL the last 8 hours, 480 mL in the last 24 hours. Mediastinal chest tube was 120 mL the last 8 hours, 280 mL in the last 24 hours. - Cardiovascular Details: S1, S2 present. Regular rate and rhythm. Normal sinus rhythm to sinus tach on telemetry. Chest stable. A/V epicardial pacemaker wires present but capped. Heart hugger in place with patient demonstrating appropriate use. Teds, SCDs present. No edema present. - Gastrointestinal Gastrointestinal Comment(s): Abdomen soft, nontender, nondistended. Hypoactive bowel sounds 4 quadrants. Positive flatus, negative BM. Tolerating diet. - Genitourinary Genitourinary Comment(s): Higginbotham present draining clear, yellow urine. Approximately 25 mL per hour. - Integumentary Integumentary Comment(s): Anterior chest wall incision covered with dry, intact silver dressing. - Musculoskeletal Musculoskeletal: Present: strength equal bilaterally - Psychiatric Psychiatric: Present: A&O x's 3, appropriate affect, intact judgment & insight - Allied health notes Allied health notes reviewed: nursing - Labs CBC & Chem 7: 01/17/17 05:45 01/17/17 05:45 Labs: Abnormal Lab Results - Last 24 Hours (Table) 01/16/17 01/16/17 01/16/17 Range/Units 10:33 12:06 13:51 WBC (3.8-10.6) k/uL RBC (4.30-5.90) m/uL Hgb (13.0-17.5) gm/dL Hct (39.0-53.0) % Plt Count (150-450) k/uL Neutrophils # (1.3-7.7) k/uL PT (9.0-12.0) sec BUN (9-20) mg/dL Glucose (74-99) mg/dL POC Glucose (mg/dL) 146 H 128 H 123 H (75-99) mg/dL Calcium (8.4-10.2) mg/dL AST (17-59) U/L ALT (21-72) U/L Alkaline Phosphatase (38-126) U/L Total Protein (6.3-8.2) g/dL 01/16/17 01/16/17 01/17/17 Range/Units 17:16 21:11 04:22 WBC (3.8-10.6) k/uL RBC (4.30-5.90) m/uL Hgb (13.0-17.5) gm/dL Hct (39.0-53.0) % Plt Count (150-450) k/uL Neutrophils # (1.3-7.7) k/uL PT (9.0-12.0) sec BUN (9-20) mg/dL Glucose (74-99) mg/dL POC Glucose (mg/dL) 104 H 141 H 142 H (75-99) mg/dL Calcium (8.4-10.2) mg/dL AST (17-59) U/L ALT (21-72) U/L Alkaline Phosphatase (38-126) U/L Total Protein (6.3-8.2) g/dL 01/17/17 01/17/17 01/17/17 Range/Units 05:45 05:45 05:45 WBC 12.8 H (3.8-10.6) k/uL RBC 2.34 L (4.30-5.90) m/uL Hgb 7.0 L* (13.0-17.5) gm/dL Hct 20.9 L (39.0-53.0) % Plt Count 137 L (150-450) k/uL Neutrophils # 9.7 H (1.3-7.7) k/uL PT 13.5 H (9.0-12.0) sec BUN 22 H (9-20) mg/dL Glucose 137 H (74-99) mg/dL POC Glucose (mg/dL) (75-99) mg/dL Calcium 8.1 L (8.4-10.2) mg/dL AST 426 H (17-59) U/L ALT 326 H (21-72) U/L Alkaline Phosphatase 25 L (38-126) U/L Total Protein 5.1 L (6.3-8.2) g/dL 01/17/17 Range/Units 07:25 WBC (3.8-10.6) k/uL RBC (4.30-5.90) m/uL Hgb (13.0-17.5) gm/dL Hct (39.0-53.0) % Plt Count (150-450) k/uL Neutrophils # (1.3-7.7) k/uL PT (9.0-12.0) sec BUN (9-20) mg/dL Glucose (74-99) mg/dL POC Glucose (mg/dL) 145 H (75-99) mg/dL Calcium (8.4-10.2) mg/dL AST (17-59) U/L ALT (21-72) U/L Alkaline Phosphatase (38-126) U/L Total Protein (6.3-8.2) g/dL - Imaging and Cardiology Chest x-ray: report reviewed, image reviewed Assessment and Plan (1) Severe aortic stenosis Status: Acute (2) Ascending aorta dilatation Status: Acute (3) Status post mechanical aortic valve replacement Status: Acute Plan: 1. Continue aspirin, Plavix, beta margarette with hold parameters. Will hold statin at this time as AST/AOT increased significantly overnight. Will restart when liver enzymes have returned to normal. 2. Encourage incentive spirometry use. 3. Increase activity, out of bed in chair all day. Physical therapy to follow 4. GI/DVT prophylaxis. 5. Monitor labs, I/Os. Hemoglobin 7.0 this a.m. No transfusion at this time. 6. Wean O2 as tolerated. 7. Will DC epicardial pacemaker wires, right and mediastinal chest tubes, and Higginbotham. 8. Blood glucose control per primary service 9. Will add iron 10. Repeat echo per cardiology 11. Possible transfer to [facility] later today. Time with Patient: Greater than 30
--- NOTE | 2017-01-17 10:13 | P.PN ---
Subjective This is a 26-year-old male with a history of recent down aortic valve replacement and repair of aortic aneurysm. He has a history of by cuspid aortic valve. He also had aortic aneurysm that was repaired. He is postop day #2. He is feeling well. No major complaints. Seems still a bit groggy. Not doing well well on his incentive spirometer. I recommend that he use it every hour while awake. He is receiving breathing treatments. Other than that no major complaints. A bit of pain. No nausea vomiting. No respiratory difficulty. No diarrhea. Objective - Vital Signs Vital signs: Vital Signs Temp 98.4 F 01/17/17 09:00 Pulse 96 01/17/17 09:00 Resp 17 01/17/17 09:00 BP 96/59 01/17/17 09:00 Pulse Ox 97 01/17/17 09:00 Intake & Output 01/16/17 01/17/17 01/17/17 18:59 06:59 18:59 Intake Total 1252 480 132 Output Total 870 1257 91 Balance 382 -777 41 Weight 99 kg Intake: IV 992 480 132 0.9 saline flush 12 12 Albumin Human 5% 250 ml 500 In Empty Bag 1 bag @ 250 mls/hr IVPB Q1HR PRN Rx#: [id number] Lactated Ringers 1,000 ml 460 480 120 @ 20 mls/hr IV .Q24H [facility] Rx#:[id number] cardiac output 20 Intake, IV Titration 200 Amount Calcium Gluconate 2,000 100 mg In Sodium Chloride 0.9 % 100 ml @ 100 mls/hr IVPB ONCE ONE Rx#: [id number] ceFAZolin 2 gm In Sodium 100 Chloride 0.9% 100 ml @ 100 mls/hr IVPB Q8HR [facility] Rx#:[id number] Oral 60 Output: Chest Tube Drainage 430 930 10 Mediastinal 200 280 Pleural Catheter Left 120 260 10 Pleural Catheter Right 110 390 Urine 440 327 81 Other: Voiding Method Indwelling Catheter Indwelling Catheter ABP, PAP, CO, CI - Last Documented Arterial Blood Pressure 95/46 Pulmonary Artery Pressure 15/9 Cardiac Output 4.8 Cardiac Index 2.6 - Exam No acute distress, oriented 3. HEENT examination is grossly unremarkable. Mucous membranes are moist. He is wearing nasal O2 at 2 L. Neck supple. Full range of motion. No adenopathy or thyromegaly. Cardio vascular examination reveals regular rhythm rate. S1-S2 normal. No S3- S4 or murmur. Lungs reveal relatively clear breath sounds. A few scattered rhonchi. No wheezes or crackles. Abdomen soft bowel sounds are heard. Extremities are intact. - Labs CBC & Chem 7: 01/17/17 05:45 01/17/17 05:45 Labs: Abnormal Lab Results - Last 24 Hours (Table) 01/16/17 01/16/17 01/16/17 Range/Units 10:33 12:06 13:51 WBC (3.8-10.6) k/uL RBC (4.30-5.90) m/uL Hgb (13.0-17.5) gm/dL Hct (39.0-53.0) % Plt Count (150-450) k/uL Neutrophils # (1.3-7.7) k/uL PT (9.0-12.0) sec BUN (9-20) mg/dL Glucose (74-99) mg/dL POC Glucose (mg/dL) 146 H 128 H 123 H (75-99) mg/dL Calcium (8.4-10.2) mg/dL AST (17-59) U/L ALT (21-72) U/L Alkaline Phosphatase (38-126) U/L Total Protein (6.3-8.2) g/dL 01/16/17 01/16/17 01/17/17 Range/Units 17:16 21:11 04:22 WBC (3.8-10.6) k/uL RBC (4.30-5.90) m/uL Hgb (13.0-17.5) gm/dL Hct (39.0-53.0) % Plt Count (150-450) k/uL Neutrophils # (1.3-7.7) k/uL PT (9.0-12.0) sec BUN (9-20) mg/dL Glucose (74-99) mg/dL POC Glucose (mg/dL) 104 H 141 H 142 H (75-99) mg/dL Calcium (8.4-10.2) mg/dL AST (17-59) U/L ALT (21-72) U/L Alkaline Phosphatase (38-126) U/L Total Protein (6.3-8.2) g/dL 01/17/17 01/17/17 01/17/17 Range/Units 05:45 05:45 05:45 WBC 12.8 H (3.8-10.6) k/uL RBC 2.34 L (4.30-5.90) m/uL Hgb 7.0 L* (13.0-17.5) gm/dL Hct 20.9 L (39.0-53.0) % Plt Count 137 L (150-450) k/uL Neutrophils # 9.7 H (1.3-7.7) k/uL PT 13.5 H (9.0-12.0) sec BUN 22 H (9-20) mg/dL Glucose 137 H (74-99) mg/dL POC Glucose (mg/dL) (75-99) mg/dL Calcium 8.1 L (8.4-10.2) mg/dL AST 426 H (17-59) U/L ALT 326 H (21-72) U/L Alkaline Phosphatase 25 L (38-126) U/L Total Protein 5.1 L (6.3-8.2) g/dL 01/17/17 Range/Units 07:25 WBC (3.8-10.6) k/uL RBC (4.30-5.90) m/uL Hgb (13.0-17.5) gm/dL Hct (39.0-53.0) % Plt Count (150-450) k/uL Neutrophils # (1.3-7.7) k/uL PT (9.0-12.0) sec BUN (9-20) mg/dL Glucose (74-99) mg/dL POC Glucose (mg/dL) 145 H (75-99) mg/dL Calcium (8.4-10.2) mg/dL AST (17-59) U/L ALT (21-72) U/L Alkaline Phosphatase (38-126) U/L Total Protein (6.3-8.2) g/dL Assessment and Plan Plan: Assessment and plan Status post aortic valve replacement with mechanical valve for somebody with bicuspid aortic valve aortic stenosis and aortic aneurysm. Postoperative respiratory failure, resolved Plan The patient will be followed. No discharge recommendations are made. He'll continue on updrafts and incentive spirometry. Because of his relatively use, and his health, he should do well and recover quickly. Plan dated 01/17/2017 The patient's are reasonably well. I encouraged him to do better on his incentive spirometer. He needs a deep breathing coughing clear secretions. We' ll continue with updrafts. No additional recommendations are made. Prognosis is guarded but good. Time with Patient: Less than 30
--- NOTE | 2017-01-17 10:30 | ECHOF ---
Referral Reason:post cardiac surgery MEASUREMENTS -------- HEIGHT: 182.9 cm WEIGHT: 85.3 kg BP: 106/61 RVIDd: 3.4 cm (< 3.3) IVSd: 1.3 cm (0.6 - 1.1) LVIDd: 4.0 cm (3.9 - 5.3) LVPWd: 1.3 cm (0.6 - 1.1) IVSs: 1.8 cm LVIDs: 2.8 cm LVPWs: 2.0 cm LA Diam: 3.4 cm (2.7 - 3.8) LAESV Index (A-L): 17.28 ml/m Ao Diam: 2.9 cm (2.0 - 3.7) AV Cusp: 3.3 cm (1.5 - 2.6) AV maxP.86 mmHg AV meanP.65 mmHg RAP: 5.00 mmHg RVSP: 28.76 mmHg FINDINGS -------- Resting tachycardia (HR>100bpm). This was a technically adequate study. The left ventricular size is normal. There is mild concentric left ventricular hypertrophy. Overall left ventricular systolic function is normal with, an EF between 60 - 65 %. The right ventricle is mildly enlarged. Normal LA size by volume 22+/-6 ml/m2. The right atrium is normal in size. Peak/mean gradient across the Aortic Valve is 26.86mmHg / 17.65mmHg. Normally functioning mechanical prosthetic valve. There is trace mitral regurgitation. Mild tricuspid regurgitation present. Right ventricular systolic pressure is normal at < 35 mmHg. The pulmonic valve was not well visualized. The aortic root size is normal. There is no pericardial effusion. CONCLUSIONS -------- 1. Resting tachycardia (HR>100bpm). 2. Normally functioning mechanical prosthetic valve. 3. There is trace mitral regurgitation. 4. Mild tricuspid regurgitation present. 5. Right ventricular systolic pressure is normal at < 35 mmHg. 6. The pulmonic valve was not well visualized. 7. The aortic root size is normal. 8. There is no pericardial effusion. 9. This was a technically adequate study. 10. The left ventricular size is normal. 11. There is mild concentric left ventricular hypertrophy. 12. Overall left ventricular systolic function is normal with, an EF between 60 - 65 %. 13. The right ventricle is mildly enlarged. 14. Normal LA size by volume 22+/-6 ml/m2. 15. The right atrium is normal in size. 16. Peak/mean gradient across the Aortic Valve is 26.86mmHg / 17.65mmHg. MARKETING OFFICER: Darlin Shah RDCS
[2017-01-17 11:57] LABS: Glucose,Whole Blood 132 mg/dL (75-99)
--- NOTE | 2017-01-17 16:59 | PN ---
Patient is admitted for aortic valve replacement. Patient is clinically doing well. Patient's blood sugars have come down. We can discontinue his Lantus and the patient's blood sugars are elevated because of D5 ( ). No further recommendations regarding that. REVIEW OF SYSTEMS: CARDIOVASCULAR: No chest pain, no orthopnea, no PND, no palpitations. PULMONARY: Denied any shortness of breath. No cough or hemoptysis. GASTROINTESTINAL: No diarrhea, nausea or vomiting. No abdominal pain. Normoactive bowel sounds. NEUROLOGIC: No headaches, no weakness, no numbness. Medications are reviewed. PHYSICAL EXAMINATION: Temperature 98.4, pulse of 103, respiratory rate 23, blood pressure is 170/65. Saturating at 95% on 2 L O2 nasal cannula. GENERAL: The patient is alert and oriented x3, not in any acute distress. Well developed, well nourished. HEENT: Pupils are round and equally reacting to light. EOMI. No scleral icterus. No conjunctival pallor. Normocephalic, atraumatic. No pharyngeal erythema. No thyromegaly. CARDIOVASCULAR: S1 and S2 present. No murmurs, rubs, or gallops. PULMONARY: Chest is clear to auscultation, no wheezing or crackles. ABDOMEN: Soft, nontender, nondistended, normoactive bowel sounds. No palpable organomegaly. MUSCULOSKELETAL: No joint swelling or deformity. EXTREMITIES: No cyanosis, clubbing, or pedal edema. NEUROLOGICAL: Gross neurological examination did not reveal any focal deficits. SKIN: No rashes. LABORATORY DATA: CBC, BMP are abnormal for elevated WBC count 12,800, hemoglobin is 7. The patient may receive transfusion because of that. Patient is also tachycardic and patient has CVP monitor. IV fluid resuscitation as per cardiothoracic surgery. Patient has elevated AST and ALT probably due to hypoperfusion. Patient will need repeat liver enzymes. ASSESSMENT AND PLAN: 1. Status post aortic valve replacement status post mechanical aortic valve. 2. Postoperative respiratory failure, which resolved. 3. Elevated blood sugars with normal Hemoglobin A1c. Elevated blood sugars are due to D5 and ( ) which is being discontinued. Continue sliding scale. No further oral hypoglycemics or any insulin is necessary at this time. Elevated liver enzymes due to hypoperfusion of the liver. Liver enzymes need to be repeated tomorrow. Do not believe any further intervention is necessary beyond that. Liver enzymes when he came in are essentially within normal limits. IV fluid resuscitation. 4. Acute blood loss anemia from surgery. Blood transfusion as per primary service. 5. Deep venous thrombosis prophylaxis and pain management as per primary service. We will continue to follow the patient on an as-needed basis.
[2017-01-17 17:14] LABS: Glucose,Whole Blood 139 mg/dL (75-99)
--- NOTE | 2017-01-17 17:43 | PN ---
This patient is status post aortic valve replacement and repair of the ascending aorta. The patient has a mechanical valve. He has remained in stable. Denies any chest pain or shortness of breath. The blood pressure is 98/61 mmHg. HEART: S1 and S2 normal. Lungs are clinically clear to auscultation and percussion. Patient's hemoglobin is 7 g. Patient has a borderline elevation in the liver enzymes, which should could be secondary to probably hypoperfusion. Patient's echocardiogram reveals a normally functioning mechanical prosthetic valve with normal LV function without any significant wall motion abnormality. We will continue the current medications.
[2017-01-17] MEDS ORDERED: WARFARIN 5 MG TAB PO ONE (18:00)
[2017-01-17] MEDS: SENNOSIDES-DOCUSATE SODIUM 1 EACH TAB PO SCH (20:36)
[2017-01-17 21:37] LABS: Glucose,Whole Blood 133 mg/dL (75-99)
[2017-01-18] MEDS: HYDROcodone/APAP 5-325MG 1 EACH TAB PO PRN ×3 (02:38→07:21)
[2017-01-18 03:01] LABS: Glucose,Whole Blood 133 mg/dL (75-99)
[2017-01-18 04:12] LABS: Basophils % (A) 0 %; CHCM 34.6; Eosinophils % (A) 1 %; HDW 2.96; Luc # (Auto) 0.16; Luc % (Auto) 2; Lymphocytes # (A) 1.5 k/uL (1.0-4.8); Lymphocytes % (A) 17 %; MCH 31.1 pg (25.0-35.0); MCHC 34.5 g/dL (31.0-37.0); MCV 90.1 fL (80.0-100.0); Mean Platelet Volume 7.8; Monocytes # (A) 0.5 k/uL (0-1.0); Monocytes % (A) 5 %; Neutrophils % (A) 76 %; RBC 2.11 m/uL (4.30-5.90); RDW 13.7 % (11.5-15.5); WBC 9.2 k/uL (3.8-10.6); WBC (Perox) 9.62
[2017-01-18 04:20] LABS: HGB 6.5 gm/dL (13.0-17.5)
[2017-01-18 04:29] LABS: Ionized Calcium 4.6 mg/dL (4.5-5.3)
[2017-01-18 04:37] LABS: INR 1.3 (<1.1); Prothrombin Time 12.4 sec (9.0-12.0)
[2017-01-18 04:51] LABS: ALT 269 U/L (21-72); AST 189 U/L (17-59); Alkaline Phosphatase 28 U/L (38-126); Anion Gap 7 mmol/L; Blood Urea Nitrogen 26 mg/dL (9-20); Calcium 8.1 mg/dL (8.4-10.2); Carbon Dioxide 26 mmol/L (22-30); Chloride 100 mmol/L (98-107); Glucose 130 mg/dL (74-99); Magnesium 2.4 mg/dL (1.6-2.3); Non-African American GFR(MDRD) >60 (>60 ml/min/1.73 sqM); Potassium 4.5 mmol/L (3.5-5.1); Sodium 133 mmol/L (137-145); Total Bilirubin 0.8 mg/dL (0.2-1.3); Total Protein 4.9 g/dL (6.3-8.2)
[2017-01-18] MEDS: ONDANSETRON 4 MG/2 ML VIAL IVP PRN ×2 (05:42→11:27)
[2017-01-18] MEDS: KETOROLAC 30 MG/ML 1 ML VIAL IVP SCH (05:43)
[2017-01-18 06:25] LABS: Glucose,Whole Blood 155 mg/dL (75-99)
[2017-01-18] MEDS: INSULIN LISPRO (humaLOG) 300 UNIT/3 ML VIAL SQ SCH ×4 (06:33→21:01)
[2017-01-18] MEDS: METOPROLOL TARTRATE 12.5 MG TAB PO SCH (06:33)
[2017-01-18] MEDS: FERROUS SULFATE 325 MG TAB PO SCH ×2 (06:33→17:40)
[2017-01-18] MEDS: METOCLOPRAMIDE 5 MG/ML 2 ML VIAL IVP PRN (07:20)
--- NOTE | 2017-01-18 07:37 | XR ---
EXAMINATION TYPE: XR chest 1V portable DATE OF EXAM: 01/18/2017 7:20 AM CLINICAL HISTORY: Difficulty breathing progress study. Postoperative cardiac surgery for aortic valv e replacement. TECHNIQUE: Single AP portable upright view of the chest is obtained. COMPARISON: Chest x-ray from one day earlier FINDINGS: Sternal wires and left-sided chest tube are stable in appearance. Previously visualized ti ny left apical pneumothorax is not as well seen on current study. Cardiac silhouette size is stable a nd upper limits of normal. There is developing right basilar opacity consistent with infiltrate and/o r atelectasis. There is interval removal of right-sided chest tube. IMPRESSION: Interval removal of right-sided chest tube with development of right basilar infiltrate a nd/or atelectasis.
[2017-01-18 07:38] LABS: CH 30.6; CHCM 33.3; HCT 20.9 % (39.0-53.0); HDW 2.98; MCH 31.2 pg (25.0-35.0); MCHC 33.7 g/dL (31.0-37.0); MCV 92.4 fL (80.0-100.0); Mean Platelet Volume 7.3; RBC 2.26 m/uL (4.30-5.90); RDW 13.7 % (11.5-15.5); WBC 11.8 k/uL (3.8-10.6)
[2017-01-18] MEDS: HEPARIN SODIUM,PORCINE 5,000 UNIT/ML 1 ML VIAL SQ SCH ×3 (08:00→16:20)
--- NOTE | 2017-01-18 08:30 | P.PN ---
Subjective Principal diagnosis: Severe aortic valve stenosis with bicuspid calcified aortic valve. 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 POD #3 aortic valve replacement using a 23 mm mechanical On-X valve bileaflet. Repair of the ascending aortic aneurysm with a supra-coronary conduit using a 30 mm Hemashield straight graft. Intraoperative transesophageal echocardiogram. Epi-aortic scanning. Patient currently sitting up in bed, no apparent distress. No questions at this time. Objective - Vital Signs Vital signs: Vital Signs Temp 96.5 F L 01/18/17 07:32 Pulse 107 H 01/18/17 07:32 Resp 16 01/18/17 07:32 BP 93/55 01/18/17 07:32 Pulse Ox 98 01/18/17 07:32 Intake & Output 01/17/17 01/18/17 01/18/17 18:59 06:59 18:59 Intake Total 622 Output Total 341 350 Balance 281 -350 Weight 93.8 kg Intake: IV 282 0.9 saline flush 42 Lactated Ringers 1,000 ml 240 @ 20 mls/hr IV .Q24H [facility] Rx#:[id number] Oral 340 Output: Chest Tube Drainage 120 30 Mediastinal 20 Pleural Catheter Left 70 30 Pleural Catheter Right 30 Urine 221 320 Other: Voiding Method Indwelling Catheter Urinal ABP, PAP, CO, CI - Last Documented Arterial Blood Pressure 91/49 Pulmonary Artery Pressure 15/9 Cardiac Output 4.8 Cardiac Index 2.6 - Constitutional General appearance: Present: cooperative, no acute distress - Respiratory Details: Lungs sounds diminished bilaterally. Respirations even but slightly tachypneic. Remains on room air. Only able to achieve 750 mL on incentive spirometry. Weak cough. Left pleural chest tube to -20 cm wall suction draining serous fluid, 30 mL in the last 8 hours, 180 mL in the last week for hours. - Cardiovascular Details: S1, S2 present. Tachycardia rate, regular rhythm, sinus tach on telemetry. Chest stable. Heart hugger in place with patient demonstrating appropriate use. Teds, SCDs present. - Gastrointestinal Gastrointestinal Comment(s): Abdomen soft, nontender, nondistended. Active bowel sounds 4 quadrants. Positive flatus, negative BM. Tolerating diet. - Genitourinary Genitourinary Comment(s): Continues to void clear, yellow urine per urinal. - Integumentary Integumentary Comment(s): Anterior chest incision covered with dry intact silver dressing. - Musculoskeletal Musculoskeletal: Present: gait normal, strength equal bilaterally - Psychiatric Psychiatric: Present: A&O x's 3, appropriate affect, intact judgment & insight - Labs CBC & Chem 7: 01/18/17 07:19 01/18/17 03:43 Labs: Abnormal Lab Results - Last 24 Hours (Table) 01/17/17 01/17/17 01/17/17 Range/Units 11:55 16:52 21:36 WBC (3.8-10.6) k/uL RBC (4.30-5.90) m/uL Hgb (13.0-17.5) gm/dL Hct (39.0-53.0) % Plt Count (150-450) k/uL PT (9.0-12.0) sec Sodium (137-145) mmol/L BUN (9-20) mg/dL Glucose (74-99) mg/dL POC Glucose (mg/dL) 132 H 139 H 133 H (75-99) mg/dL Calcium (8.4-10.2) mg/dL Magnesium (1.6-2.3) mg/dL AST (17-59) U/L ALT (21-72) U/L Alkaline Phosphatase (38-126) U/L Total Protein (6.3-8.2) g/dL Albumin (3.5-5.0) g/dL 01/18/17 01/18/17 01/18/17 Range/Units 02:59 03:43 03:43 WBC (3.8-10.6) k/uL RBC 2.11 L (4.30-5.90) m/uL Hgb 6.5 L* (13.0-17.5) gm/dL Hct 19.0 L* (39.0-53.0) % Plt Count 139 L (150-450) k/uL PT 12.4 H (9.0-12.0) sec Sodium (137-145) mmol/L BUN (9-20) mg/dL Glucose (74-99) mg/dL POC Glucose (mg/dL) 133 H (75-99) mg/dL Calcium (8.4-10.2) mg/dL Magnesium (1.6-2.3) mg/dL AST (17-59) U/L ALT (21-72) U/L Alkaline Phosphatase (38-126) U/L Total Protein (6.3-8.2) g/dL Albumin (3.5-5.0) g/dL 01/18/17 01/18/17 01/18/17 Range/Units 03:43 06:24 07:19 WBC 11.8 H (3.8-10.6) k/uL RBC 2.26 L (4.30-5.90) m/uL Hgb 7.0 L* (13.0-17.5) gm/dL Hct 20.9 L (39.0-53.0) % Plt Count (150-450) k/uL PT (9.0-12.0) sec Sodium 133 L (137-145) mmol/L BUN 26 H (9-20) mg/dL Glucose 130 H (74-99) mg/dL POC Glucose (mg/dL) 155 H (75-99) mg/dL Calcium 8.1 L (8.4-10.2) mg/dL Magnesium 2.4 H (1.6-2.3) mg/dL AST 189 H (17-59) U/L ALT 269 H (21-72) U/L Alkaline Phosphatase 28 L (38-126) U/L Total Protein 4.9 L (6.3-8.2) g/dL Albumin 3.3 L (3.5-5.0) g/dL - Imaging and Cardiology Chest x-ray: report reviewed, image reviewed Assessment and Plan (1) Severe aortic stenosis Status: Acute (2) Ascending aorta dilatation Status: Resolved (3) Status post mechanical aortic valve replacement Status: Acute Plan: 1. Continue aspirin, Plavix until INR is therapeutic. 2. Continue beta margarette with hold parameters. 3. Will continue to hold statin at this time as AST/ALT still elevated but downtrending. Will restart when liver enzymes have returned to normal. 4. Encourage incentive spirometry use. 5. Increase activity, ambulate in hallway at least 4 times today. Physical therapy to follow 6. GI/DVT prophylaxis. 7. Monitor labs, I/Os. Hemoglobin 6.5 this morning, repeat hemoglobin 7.0. Will not transfuse at this time. Need pediatric tubes for all lab draws. 8. Likely will DC left pleural chest tube today. 9. Blood glucose control per primary service Time with Patient: Greater than 30
[2017-01-18] MEDS: CLOPIDOGREL 75 MG TAB PO SCH (09:03)
[2017-01-18] MEDS: PANTOPRAZOLE 40 MG TABLET PO SCH (09:03)
[2017-01-18] MEDS: ASPIRIN 325 MG TAB PO SCH (09:03)
--- NOTE | 2017-01-18 10:34 | P.PN ---
Subjective This is a 26-year-old male with a history of recent down aortic valve replacement and repair of aortic aneurysm. He has a history of by cuspid aortic valve. He also had aortic aneurysm that was repaired. He is postop day #2. He is feeling well. No major complaints. Seems still a bit groggy. Not doing well well on his incentive spirometer. I recommend that he use it every hour while awake. He is receiving breathing treatments. Other than that no major complaints. A bit of pain. No nausea vomiting. No respiratory difficulty. No diarrhea. Progress note dated 01/18/2017 This patient continues to do well. 26-year-old white male with a history of aortic valve replacement for bicuspid aortic valve and repair of aortic aneurysm. The patient's respiratory status has improved. He is doing better on his incentive spirometer. Less short of breath. Chest tube was removed on the right side. Chest x-ray looks stable. Some basilar atelectasis on the right. Objective - Vital Signs Vital signs: Vital Signs Temp 96.5 F L 01/18/17 07:32 Pulse 107 H 01/18/17 09:37 Resp 16 01/18/17 07:32 BP 93/55 01/18/17 07:32 Pulse Ox 98 01/18/17 08:51 Intake & Output 01/17/17 01/18/17 01/18/17 18:59 06:59 18:59 Intake Total 622 Output Total 341 350 Balance 281 -350 Weight 93.8 kg Intake: IV 282 0.9 saline flush 42 Lactated Ringers 1,000 ml 240 @ 20 mls/hr IV .Q24H [facility] Rx#:[id number] Oral 340 Output: Chest Tube Drainage 120 30 Mediastinal 20 Pleural Catheter Left 70 30 Pleural Catheter Right 30 Urine 221 320 Other: Voiding Method Indwelling Catheter Urinal Toilet ABP, PAP, CO, CI - Last Documented Arterial Blood Pressure 91/49 Pulmonary Artery Pressure 15/9 Cardiac Output 4.8 Cardiac Index 2.6 - Exam No acute distress, oriented 3. HEENT examination is grossly unremarkable. Mucous membranes are moist. He is wearing nasal O2 at 2 L. Neck supple. Full range of motion. No adenopathy or thyromegaly. Cardio vascular examination reveals regular rhythm rate. S1-S2 normal. No S3- S4 or murmur. Lungs reveal relatively clear breath sounds. A few scattered rhonchi. No wheezes or crackles. Abdomen soft bowel sounds are heard. Extremities are intact. - Labs CBC & Chem 7: 01/18/17 07:19 01/18/17 03:43 Labs: Abnormal Lab Results - Last 24 Hours (Table) 01/17/17 01/17/17 01/17/17 Range/Units 11:55 16:52 21:36 WBC (3.8-10.6) k/uL RBC (4.30-5.90) m/uL Hgb (13.0-17.5) gm/dL Hct (39.0-53.0) % Plt Count (150-450) k/uL PT (9.0-12.0) sec Sodium (137-145) mmol/L BUN (9-20) mg/dL Glucose (74-99) mg/dL POC Glucose (mg/dL) 132 H 139 H 133 H (75-99) mg/dL Calcium (8.4-10.2) mg/dL Magnesium (1.6-2.3) mg/dL AST (17-59) U/L ALT (21-72) U/L Alkaline Phosphatase (38-126) U/L Total Protein (6.3-8.2) g/dL Albumin (3.5-5.0) g/dL 01/18/17 01/18/17 01/18/17 Range/Units 02:59 03:43 03:43 WBC (3.8-10.6) k/uL RBC 2.11 L (4.30-5.90) m/uL Hgb 6.5 L* (13.0-17.5) gm/dL Hct 19.0 L* (39.0-53.0) % Plt Count 139 L (150-450) k/uL PT 12.4 H (9.0-12.0) sec Sodium (137-145) mmol/L BUN (9-20) mg/dL Glucose (74-99) mg/dL POC Glucose (mg/dL) 133 H (75-99) mg/dL Calcium (8.4-10.2) mg/dL Magnesium (1.6-2.3) mg/dL AST (17-59) U/L ALT (21-72) U/L Alkaline Phosphatase (38-126) U/L Total Protein (6.3-8.2) g/dL Albumin (3.5-5.0) g/dL 01/18/17 01/18/17 01/18/17 Range/Units 03:43 06:24 07:19 WBC 11.8 H (3.8-10.6) k/uL RBC 2.26 L (4.30-5.90) m/uL Hgb 7.0 L* (13.0-17.5) gm/dL Hct 20.9 L (39.0-53.0) % Plt Count (150-450) k/uL PT (9.0-12.0) sec Sodium 133 L (137-145) mmol/L BUN 26 H (9-20) mg/dL Glucose 130 H (74-99) mg/dL POC Glucose (mg/dL) 155 H (75-99) mg/dL Calcium 8.1 L (8.4-10.2) mg/dL Magnesium 2.4 H (1.6-2.3) mg/dL AST 189 H (17-59) U/L ALT 269 H (21-72) U/L Alkaline Phosphatase 28 L (38-126) U/L Total Protein 4.9 L (6.3-8.2) g/dL Albumin 3.3 L (3.5-5.0) g/dL Assessment and Plan Plan: Assessment and plan Status post aortic valve replacement with mechanical valve for somebody with bicuspid aortic valve aortic stenosis and aortic aneurysm. Postoperative respiratory failure, resolved Plan The patient will be followed. No discharge recommendations are made. He'll continue on updrafts and incentive spirometry. Because of his relatively use, and his health, he should do well and recover quickly. Plan dated 01/17/2017 The patient's are reasonably well. I encouraged him to do better on his incentive spirometer. He needs a deep breathing coughing clear secretions. We' ll continue with updrafts. No additional recommendations are made. Prognosis is guarded but good. Plan dated 01/18/2017 This patient continues to do well. Respiratory status is progressing nicely. We'll continue to follow. Recommend incentive spirometry every hour while awake and coughing clearing of secretions and deep breathing to help his overall respiratory status. Seemed much more awake and alert today. Time with Patient: Less than 30
[2017-01-18] MEDS: HYDROcodone/APAP 7.5-325MG 1 EACH TAB PO PRN ×3 (11:21→20:29)
[2017-01-18 11:59] LABS: Glucose,Whole Blood 146 mg/dL (75-99)
--- NOTE | 2017-01-18 16:29 | P.PN ---
Subjective Principal diagnosis: Status post aortic valve replacement and repair of aortic aneurysm This is a pleasant 26-year-old gentleman who is status post aortic valve replacement and repair of aortic aneurysm. He was seen and examined today, chest tube has been removed. Overall he's doing well. Working on his incentive spirometry. States that he is less short of breath today. Hemodynamically stable blood pressure 112/60, heart rate in the 1 teens today. Objective - Vital Signs Vital signs: Vital Signs Temp 97 F L 01/18/17 15:50 Pulse 113 H 01/18/17 15:50 Resp 16 01/18/17 15:50 BP 112/60 01/18/17 15:50 Pulse Ox 96 01/18/17 15:50 Intake & Output 01/17/17 01/18/17 01/18/17 18:59 06:59 18:59 Intake Total 622 200 Output Total 341 350 30 Balance 281 -350 170 Weight 93.8 kg Intake: IV 282 0.9 saline flush 42 Lactated Ringers 1,000 ml 240 @ 20 mls/hr IV .Q24H [facility] Rx#:[id number] Oral 340 200 Output: Chest Tube Drainage 120 30 30 Mediastinal 20 Pleural Catheter Left 70 30 30 Pleural Catheter Right 30 Urine 221 320 Other: Voiding Method Indwelling Catheter Urinal Toilet # Voids 2 ABP, PAP, CO, CI - Last Documented Arterial Blood Pressure 91/49 Pulmonary Artery Pressure 15/9 Cardiac Output 4.8 Cardiac Index 2.6 - Exam PHYSICAL EXAMINATION: HEENT: Head is atraumatic, normocephalic. Pupils equal, round. Neck is supple. There is no elevated jugular venous pressure. HEART EXAMINATION: Heart S1, S2 normal. No murmur or gallop heard. CHEST EXAMINATION: Lungs are clear to auscultation and precussion. No chest wall tenderness is noted on palpation or with deep breathing. ABDOMEN: Soft, nontender. Bowel sounds are heard. No organomegaly noted. EXTREMITIES: 2+ peripheral pulses with no evidence of peripheral edema and no calf tenderness noted. NEUROLOGIC patient is awake, alert and oriented -3. . - Labs CBC & Chem 7: 01/18/17 07:19 01/18/17 03:43 Labs: Abnormal Lab Results - Last 24 Hours (Table) 01/17/17 01/17/17 01/18/17 Range/Units 16:52 21:36 02:59 WBC (3.8-10.6) k/uL RBC (4.30-5.90) m/uL Hgb (13.0-17.5) gm/dL Hct (39.0-53.0) % Plt Count (150-450) k/uL PT (9.0-12.0) sec Sodium (137-145) mmol/L BUN (9-20) mg/dL Glucose (74-99) mg/dL POC Glucose (mg/dL) 139 H 133 H 133 H (75-99) mg/dL Calcium (8.4-10.2) mg/dL Magnesium (1.6-2.3) mg/dL AST (17-59) U/L ALT (21-72) U/L Alkaline Phosphatase (38-126) U/L Total Protein (6.3-8.2) g/dL Albumin (3.5-5.0) g/dL 01/18/17 01/18/17 01/18/17 Range/Units 03:43 03:43 03:43 WBC (3.8-10.6) k/uL RBC 2.11 L (4.30-5.90) m/uL Hgb 6.5 L* (13.0-17.5) gm/dL Hct 19.0 L* (39.0-53.0) % Plt Count 139 L (150-450) k/uL PT 12.4 H (9.0-12.0) sec Sodium 133 L (137-145) mmol/L BUN 26 H (9-20) mg/dL Glucose 130 H (74-99) mg/dL POC Glucose (mg/dL) (75-99) mg/dL Calcium 8.1 L (8.4-10.2) mg/dL Magnesium 2.4 H (1.6-2.3) mg/dL AST 189 H (17-59) U/L ALT 269 H (21-72) U/L Alkaline Phosphatase 28 L (38-126) U/L Total Protein 4.9 L (6.3-8.2) g/dL Albumin 3.3 L (3.5-5.0) g/dL 01/18/17 01/18/17 01/18/17 Range/Units 06:24 07:19 11:38 WBC 11.8 H (3.8-10.6) k/uL RBC 2.26 L (4.30-5.90) m/uL Hgb 7.0 L* (13.0-17.5) gm/dL Hct 20.9 L (39.0-53.0) % Plt Count (150-450) k/uL PT (9.0-12.0) sec Sodium (137-145) mmol/L BUN (9-20) mg/dL Glucose (74-99) mg/dL POC Glucose (mg/dL) 155 H 146 H (75-99) mg/dL Calcium (8.4-10.2) mg/dL Magnesium (1.6-2.3) mg/dL AST (17-59) U/L ALT (21-72) U/L Alkaline Phosphatase (38-126) U/L Total Protein (6.3-8.2) g/dL Albumin (3.5-5.0) g/dL Assessment and Plan (1) S/P repair of abdominal aortic aneurysm using bifurcation graft Status: Acute (2) Tachycardia Status: Acute (3) Status post mechanical aortic valve replacement Status: Acute Plan: We will increase Lopressor to 25 mg one tablet by mouth twice a day for more optimal heart rate control. Continue to monitor blood pressure closely. We will also check PT/INR today and daily. Patient is scheduled to receive 5 mg of Coumadin today. DNP note has been reviewed, I agree with a documented findings and plan of care. Patient was seen and examined.
[2017-01-18 17:03] LABS: Glucose,Whole Blood 142 mg/dL (75-99)
[2017-01-18] MEDS ORDERED: WARFARIN 5 MG TAB PO ONE (18:00)
[2017-01-18] MEDS: SENNOSIDES-DOCUSATE SODIUM 1 EACH TAB PO SCH (20:29)
[2017-01-18] MEDS: METOPROLOL TARTRATE 25 MG TAB PO SCH (20:31)
[2017-01-18 20:54] LABS: Glucose,Whole Blood 137 mg/dL (75-99)
[2017-01-19] MEDS: HYDROcodone/APAP 7.5-325MG 1 EACH TAB PO PRN ×4 (00:13→16:41)
[2017-01-19] MEDS: HEPARIN SODIUM,PORCINE 5,000 UNIT/ML 1 ML VIAL SQ SCH ×2 (00:16→08:39)
[2017-01-19] MEDS: METOCLOPRAMIDE 5 MG/ML 2 ML VIAL IVP PRN ×2 (00:24→08:38)
[2017-01-19 02:08] LABS: Glucose,Whole Blood 132 mg/dL (75-99)
[2017-01-19] MEDS: ONDANSETRON 4 MG/2 ML VIAL IVP PRN (02:25)
[2017-01-19] MEDS ORDERED: ACETAMINOPHEN TAB 325 MG TAB PO PRN (03:12)
[2017-01-19] MEDS ORDERED: MORPHINE SULFATE 2 MG/ML SYRINGE IVP PRN (03:13)
[2017-01-19 06:16] LABS: Glucose,Whole Blood 117 mg/dL (75-99)
[2017-01-19] MEDS: INSULIN LISPRO (humaLOG) 300 UNIT/3 ML VIAL SQ SCH ×4 (06:17→21:02)
[2017-01-19] MEDS: FERROUS SULFATE 325 MG TAB PO SCH ×2 (06:36→17:36)
[2017-01-19 06:48] LABS: INR 2.3 (<1.1)
[2017-01-19 07:15] LABS: Ionized Calcium 4.3 mg/dL (4.5-5.3)
[2017-01-19 07:25] LABS: Basophils # (A) 0.1 k/uL (0-0.2); Basophils % (A) 1 %; CH 30.7; CHCM 34.2; Eosinophils # (A) 0.1 k/uL (0-0.7); Eosinophils % (A) 1 %; HDW 3.09; Luc # (Auto) 0.22; Luc % (Auto) 3; Lymphocytes # (A) 1.3 k/uL (1.0-4.8); Lymphocytes % (A) 14 %; MCH 30.4 pg (25.0-35.0); MCHC 33.6 g/dL (31.0-37.0); MCV 90.5 fL (80.0-100.0); Mean Platelet Volume 7.7; Monocytes # (A) 0.5 k/uL (0-1.0); Monocytes % (A) 6 %; Neutrophils # (A) 6.7 k/uL (1.3-7.7); Neutrophils % (A) 76 %; RBC 2.04 m/uL (4.30-5.90); RDW 13.9 % (11.5-15.5); WBC 8.9 k/uL (3.8-10.6); WBC (Perox) 8.81
[2017-01-19 07:33] LABS: ALT 392 U/L (21-72); AST 266 U/L (17-59); Alkaline Phosphatase 39 U/L (38-126); Anion Gap 11 mmol/L; Blood Urea Nitrogen 25 mg/dL (9-20); Calcium 8.3 mg/dL (8.4-10.2); Carbon Dioxide 26 mmol/L (22-30); Chloride 97 mmol/L (98-107); Glucose 118 mg/dL (74-99); Magnesium 2.6 mg/dL (1.6-2.3); Non-African American GFR(MDRD) >60 (>60 ml/min/1.73 sqM); Potassium 4.8 mmol/L (3.5-5.1); Sodium 134 mmol/L (137-145); Total Bilirubin 0.9 mg/dL (0.2-1.3); Total Protein 5.4 g/dL (6.3-8.2)
--- NOTE | 2017-01-19 07:37 | XR ---
EXAMINATION TYPE: XR chest 2V DATE OF EXAM: 01/19/2017 6:21 AM HISTORY: post chest tube removal. REFERENCE: Previous study dated 01/18/2017. FINDINGS: There has been a midline sternotomy. There is bibasilar airspace disease. There is a right-sided effusion and a smaller left-sided effusio n. Heart size is upper limits of normal. IMPRESSION: 1. BIBASILAR AIRSPACE DISEASE. 2. SMALL, BILATERAL EFFUSIONS.
[2017-01-19 07:45] LABS: HCT 18.5 % (39.0-53.0); HGB 6.2 gm/dL (13.0-17.5)
[2017-01-19] MEDS: ASPIRIN 325 MG TAB PO SCH (08:39)
[2017-01-19] MEDS: CLOPIDOGREL 75 MG TAB PO SCH (08:39)
[2017-01-19] MEDS: METOPROLOL TARTRATE 25 MG TAB PO SCH ×2 (08:40→21:02)
[2017-01-19] MEDS: PANTOPRAZOLE 40 MG TABLET PO SCH (08:40)
[2017-01-19 08:41] LABS: CH 31.1; CHCM 34.8; HDW 3.19; MCH 30.9 pg (25.0-35.0); MCHC 34.4 g/dL (31.0-37.0); MCV 89.9 fL (80.0-100.0); Mean Platelet Volume 7.9; RBC 2.03 m/uL (4.30-5.90); RDW 14.2 % (11.5-15.5); WBC 9.2 k/uL (3.8-10.6)
[2017-01-19 08:42] LABS: HCT 18.3 % (39.0-53.0); HGB 6.3 gm/dL (13.0-17.5)
--- NOTE | 2017-01-19 10:52 | P.PN ---
Subjective Principal diagnosis: Severe aortic valve stenosis with bicuspid calcified aortic valve. 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 POD #4 aortic valve replacement using a 23 mm mechanical On-X valve bileaflet. Repair of the ascending aortic aneurysm with a supra-coronary conduit using a 30 mm Hemashield straight graft. Intraoperative transesophageal echocardiogram. Epi-aortic scanning. Patient currently sitting up in bed, no apparent distress. Feels very drained today. Objective - Vital Signs Vital signs: Vital Signs Temp 97.6 F 01/19/17 07:49 Pulse 107 H 01/19/17 08:00 Resp 16 01/19/17 07:49 BP 112/64 01/19/17 07:49 Pulse Ox 97 01/19/17 09:22 Intake & Output 01/18/17 01/19/17 01/19/17 18:59 06:59 18:59 Intake Total 200 200 Output Total 180 740 Balance 20 -540 Weight 94.1 kg Intake: Oral 200 200 Output: Chest Tube Drainage 30 Pleural Catheter Left 30 Urine 150 740 Other: Voiding Method Toilet Toilet Toilet Urinal Urinal Urinal # Voids 1 ABP, PAP, CO, CI - Last Documented Arterial Blood Pressure 91/49 Pulmonary Artery Pressure 15/9 Cardiac Output 4.8 Cardiac Index 2.6 - Constitutional General appearance: Present: cooperative, no acute distress - Respiratory Details: Lungs sounds diminished. Respirations even, nonlabored. Remains on 2 L nasal cannula. Able to achieve 1000 mL on incentive spirometry. Cough more effective. - Cardiovascular Details: S1, S2 present. Regular rate and rhythm, sinus tach on telemetry. Chest stable. Heart hugger in place with patient demonstrating appropriate use. No edema present. - Gastrointestinal Gastrointestinal Comment(s): Abdomen soft, nontender, nondistended. Bowel sounds active 4 quadrants. Tolerating diet. - Genitourinary Genitourinary Comment(s): Continues to void clear yellow urine per urinal. - Integumentary Integumentary Comment(s): Anterior chest incision covered with dry intact silver dressing. - Musculoskeletal Musculoskeletal Comment(s): Able to ambulate in [place] without assistance. - Psychiatric Psychiatric: Present: A&O x's 3, appropriate affect, intact judgment & insight - Allied health notes Allied health notes reviewed: nursing - Labs CBC & Chem 7: 01/19/17 08:17 01/19/17 05:53 Labs: Abnormal Lab Results - Last 24 Hours (Table) 01/18/17 01/18/17 01/18/17 Range/Units 07:19 11:38 16:52 RBC (4.30-5.90) m/uL Hgb (13.0-17.5) gm/dL Hct (39.0-53.0) % PT (9.0-12.0) sec Sodium (137-145) mmol/L Chloride (98-107) mmol/L BUN (9-20) mg/dL Glucose (74-99) mg/dL POC Glucose (mg/dL) 146 H 142 H (75-99) mg/dL Calcium (8.4-10.2) mg/dL Ionized Calcium Abimael (4.5-5.3) mg/dL Magnesium (1.6-2.3) mg/dL AST (17-59) U/L ALT (21-72) U/L Total Protein (6.3-8.2) g/dL Crossmatch See Detail 01/18/17 01/19/17 01/19/17 Range/Units 20:51 02:06 05:53 RBC 2.04 L (4.30-5.90) m/uL Hgb 6.2 L* (13.0-17.5) gm/dL Hct 18.5 L* (39.0-53.0) % PT (9.0-12.0) sec Sodium (137-145) mmol/L Chloride (98-107) mmol/L BUN (9-20) mg/dL Glucose (74-99) mg/dL POC Glucose (mg/dL) 137 H 132 H (75-99) mg/dL Calcium (8.4-10.2) mg/dL Ionized Calcium Abimael (4.5-5.3) mg/dL Magnesium (1.6-2.3) mg/dL AST (17-59) U/L ALT (21-72) U/L Total Protein (6.3-8.2) g/dL Crossmatch 01/19/17 01/19/17 01/19/17 Range/Units 05:53 05:53 06:10 RBC (4.30-5.90) m/uL Hgb (13.0-17.5) gm/dL Hct (39.0-53.0) % PT 22.0 H (9.0-12.0) sec Sodium 134 L (137-145) mmol/L Chloride 97 L (98-107) mmol/L BUN 25 H (9-20) mg/dL Glucose 118 H (74-99) mg/dL POC Glucose (mg/dL) 117 H (75-99) mg/dL Calcium 8.3 L (8.4-10.2) mg/dL Ionized Calcium Abimael 4.3 L (4.5-5.3) mg/dL Magnesium 2.6 H (1.6-2.3) mg/dL AST 266 H (17-59) U/L ALT 392 H (21-72) U/L Total Protein 5.4 L (6.3-8.2) g/dL Crossmatch 01/19/17 Range/Units 08:17 RBC 2.03 L (4.30-5.90) m/uL Hgb 6.3 L* (13.0-17.5) gm/dL Hct 18.3 L* (39.0-53.0) % PT (9.0-12.0) sec Sodium (137-145) mmol/L Chloride (98-107) mmol/L BUN (9-20) mg/dL Glucose (74-99) mg/dL POC Glucose (mg/dL) (75-99) mg/dL Calcium (8.4-10.2) mg/dL Ionized Calcium Abimael (4.5-5.3) mg/dL Magnesium (1.6-2.3) mg/dL AST (17-59) U/L ALT (21-72) U/L Total Protein (6.3-8.2) g/dL Crossmatch - Imaging and Cardiology Chest x-ray: report reviewed, image reviewed Assessment and Plan (1) Severe aortic stenosis Status: Acute (2) Ascending aorta dilatation Status: Resolved (3) Status post mechanical aortic valve replacement Status: Acute Plan: 1. Decrease aspirin to 81 mg daily. Stop Plavix, heparin. Will give 2 mg Coumadin tonight. 2. Continue beta margarette with hold parameters. 3. Will continue to hold statin at this time as AST/ALT still elevated. Will restart when liver enzymes have returned to normal. 4. Encourage incentive spirometry use. 5. Increase activity, ambulate in hallway at least 4 times today. Physical therapy to follow 6. GI/DVT prophylaxis. 7. Monitor labs, I/Os. Hemoglobin 6.2 this morning, repeat hemoglobin 6.3. Will transfuse 1 unit PRBCs Need pediatric tubes for all lab draws. 8. Blood glucose control per primary service 9. Probable DC home soon. Time with Patient: Greater than 30
--- NOTE | 2017-01-19 11:41 | P.PN ---
Subjective Principal diagnosis: This is a very pleasant 26-year-old gentleman with history of severe aortic stenosis and bicuspid calcified aortic valve. He presented here on 01/15/2017 for an elective aortic valve replacement which was performed that same day. This is postoperative day #4. He had aortic valve replacement utilizing a 23 mm mechanical valve bileaflet. He had repair of the ascending aortic aneurysm with a supra coronary conduit using a 30 mm Hemashield straight graft.he is seen again today 01/19/2017 in follow-up. He is on the selective care unit now. He is sitting up in bed. His pain is well controlled. Unfortunately he is quite weak and pale. Today's hemoglobin is only 6.3 and he is to receive a unit of packed red blood cells. His INR is 2.3. He denies any worsening shortness of breath, cough or congestion. His chest x-ray reveals bibasilar airspace disease with small bilateral effusions. He has been afebrile. He is maintaining good O2 saturations in the upper 90s on 2 L/m per nasal cannula. Objective - Vital Signs Vital signs: Vital Signs Temp 97.6 F 01/19/17 11:08 Pulse 100 01/19/17 11:08 Resp 16 01/19/17 11:08 BP 107/63 01/19/17 11:08 Pulse Ox 99 01/19/17 11:08 Intake & Output 01/18/17 01/19/17 01/19/17 18:59 06:59 18:59 Intake Total 200 200 0 Output Total 180 740 Balance 20 -540 0 Weight 94.1 kg Intake: Oral 200 200 Blood Product 0 Rc As-1 Unit 0 [id number] Output: Chest Tube Drainage 30 Pleural Catheter Left 30 Urine 150 740 Other: Voiding Method Toilet Toilet Toilet Urinal Urinal Urinal # Voids 1 ABP, PAP, CO, CI - Last Documented Arterial Blood Pressure 91/49 Pulmonary Artery Pressure 15/9 Cardiac Output 4.8 Cardiac Index 2.6 - Exam GENERAL EXAM: Pale. Alert, fairly comfortable in no apparent distress. HEAD: Normocephalic. EYES: Normal reaction of pupils, equal size. NOSE: Clear with pink turbinates. THROAT: No erythema or exudates. NECK: No masses, no JVD. CHEST: Sternal dressing is dry and intact. LUNGS: Equal air entry with faint crackles in the posterior bases. Diminished. CVS: S1 and S2 normal with no audible murmurs, regular rhythm. ABDOMEN: No hepatosplenomegaly, normal bowel sounds, no guarding or rigidity. SPINE: No scoliosis or deformity SKIN: No rashes CENTRAL NERVOUS SYSTEM: No focal deficits, tone is normal in all 4 extremities. extremities: There is no significant peripheral edema. No clubbing, no cyanosis. Peripheral pulses are intact. - Labs CBC & Chem 7: 01/19/17 08:17 01/19/17 05:53 Labs: Abnormal Lab Results - Last 24 Hours (Table) 01/18/17 01/18/17 01/18/17 Range/Units 07:19 11:38 16:52 RBC (4.30-5.90) m/uL Hgb (13.0-17.5) gm/dL Hct (39.0-53.0) % PT (9.0-12.0) sec Sodium (137-145) mmol/L Chloride (98-107) mmol/L BUN (9-20) mg/dL Glucose (74-99) mg/dL POC Glucose (mg/dL) 146 H 142 H (75-99) mg/dL Calcium (8.4-10.2) mg/dL Ionized Calcium Abimael (4.5-5.3) mg/dL Magnesium (1.6-2.3) mg/dL AST (17-59) U/L ALT (21-72) U/L Total Protein (6.3-8.2) g/dL Crossmatch See Detail 01/18/17 01/19/17 01/19/17 Range/Units 20:51 02:06 05:53 RBC 2.04 L (4.30-5.90) m/uL Hgb 6.2 L* (13.0-17.5) gm/dL Hct 18.5 L* (39.0-53.0) % PT (9.0-12.0) sec Sodium (137-145) mmol/L Chloride (98-107) mmol/L BUN (9-20) mg/dL Glucose (74-99) mg/dL POC Glucose (mg/dL) 137 H 132 H (75-99) mg/dL Calcium (8.4-10.2) mg/dL Ionized Calcium Abimael (4.5-5.3) mg/dL Magnesium (1.6-2.3) mg/dL AST (17-59) U/L ALT (21-72) U/L Total Protein (6.3-8.2) g/dL Crossmatch 01/19/17 01/19/17 01/19/17 Range/Units 05:53 05:53 06:10 RBC (4.30-5.90) m/uL Hgb (13.0-17.5) gm/dL Hct (39.0-53.0) % PT 22.0 H (9.0-12.0) sec Sodium 134 L (137-145) mmol/L Chloride 97 L (98-107) mmol/L BUN 25 H (9-20) mg/dL Glucose 118 H (74-99) mg/dL POC Glucose (mg/dL) 117 H (75-99) mg/dL Calcium 8.3 L (8.4-10.2) mg/dL Ionized Calcium Abimael 4.3 L (4.5-5.3) mg/dL Magnesium 2.6 H (1.6-2.3) mg/dL AST 266 H (17-59) U/L ALT 392 H (21-72) U/L Total Protein 5.4 L (6.3-8.2) g/dL Crossmatch 01/19/17 Range/Units 08:17 RBC 2.03 L (4.30-5.90) m/uL Hgb 6.3 L* (13.0-17.5) gm/dL Hct 18.3 L* (39.0-53.0) % PT (9.0-12.0) sec Sodium (137-145) mmol/L Chloride (98-107) mmol/L BUN (9-20) mg/dL Glucose (74-99) mg/dL POC Glucose (mg/dL) (75-99) mg/dL Calcium (8.4-10.2) mg/dL Ionized Calcium Abimael (4.5-5.3) mg/dL Magnesium (1.6-2.3) mg/dL AST (17-59) U/L ALT (21-72) U/L Total Protein (6.3-8.2) g/dL Crossmatch Assessment and Plan Plan: Impression: #1 Severe aortic stenosis with bicuspid aortic valve status post aortic valve replacementutilizing a #23 mm mechanical on X valve bileafletand repair of the ascending aortic aneurysm with supra coronary conduit. #2 Postoperative anemia, current hemoglobin 6.3, 2 received 1 unit of packed red blood cells. Plan: The patient was seen and evaluated by Dr. Julian. His chest x-ray and labs were reviewed. The patient is to receive a unit of PRBCs. We've again encouraged the increased use of the incentive spirometer and cough and deep breathing exercises. We will increase his activity as tolerated. We'll continue to follow.
[2017-01-19 12:18] LABS: Glucose,Whole Blood 131 mg/dL (75-99)
--- NOTE | 2017-01-19 14:50 | P.PN ---
Subjective Principal diagnosis: Aortic stenosis This is a pleasant 26-year-old gentleman who is status post aortic valve replacement and repair of aortic aneurysm. He was seen and examined today. Overall he is doing okay, complains of feeling drained hemoglobin this morning was 6.2 and he is being transfused at this time. He has been using his incentive spirometer. He has been up walking and denies complaints of shortness of breath. His heart rate is somewhat better today in the 90s to low 100s. Objective - Vital Signs Vital signs: Vital Signs Temp 97.6 F 01/19/17 14:17 Pulse 97 01/19/17 14:17 Resp 18 01/19/17 14:17 BP 119/71 01/19/17 14:17 Pulse Ox 97 01/19/17 14:17 Intake & Output 01/18/17 01/19/17 01/19/17 18:59 06:59 18:59 Intake Total 200 200 710 Output Total 180 740 Balance 20 -540 710 Weight 94.1 kg Intake: Oral 200 200 100 Blood Product 610 Rc As-1 Unit 310 [id number] Output: Chest Tube Drainage 30 Pleural Catheter Left 30 Urine 150 740 Other: Voiding Method Toilet Toilet Toilet Urinal Urinal Urinal # Voids 1 ABP, PAP, CO, CI - Last Documented Arterial Blood Pressure 91/49 Pulmonary Artery Pressure 15/9 Cardiac Output 4.8 Cardiac Index 2.6 - Exam PHYSICAL EXAMINATION: HEENT: Head is atraumatic, normocephalic. Pupils equal, round. Neck is supple. There is no elevated jugular venous pressure. HEART EXAMINATION: Heart sounds regular, S1 and S2 normal. No murmur or gallop heard. CHEST EXAMINATION: Lungs reveal faint crackles bilateral bases. No chest wall tenderness is noted on palpation or with deep breathing. Dressing dry and intact and midsternal incision. ABDOMEN: Soft, nontender. Bowel sounds are heard. No organomegaly noted. EXTREMITIES: 2+ peripheral pulses with no evidence of peripheral edema and no calf tenderness noted. NEUROLOGIC patient is awake, alert and oriented x3. . - Labs CBC & Chem 7: 01/19/17 08:17 01/19/17 05:53 Labs: Abnormal Lab Results - Last 24 Hours (Table) 01/18/17 01/18/17 01/18/17 Range/Units 07:19 16:52 20:51 RBC (4.30-5.90) m/uL Hgb (13.0-17.5) gm/dL Hct (39.0-53.0) % PT (9.0-12.0) sec Sodium (137-145) mmol/L Chloride (98-107) mmol/L BUN (9-20) mg/dL Glucose (74-99) mg/dL POC Glucose (mg/dL) 142 H 137 H (75-99) mg/dL Calcium (8.4-10.2) mg/dL Ionized Calcium Abimael (4.5-5.3) mg/dL Magnesium (1.6-2.3) mg/dL AST (17-59) U/L ALT (21-72) U/L Total Protein (6.3-8.2) g/dL Crossmatch See Detail 01/19/17 01/19/17 01/19/17 Range/Units 02:06 05:53 05:53 RBC 2.04 L (4.30-5.90) m/uL Hgb 6.2 L* (13.0-17.5) gm/dL Hct 18.5 L* (39.0-53.0) % PT 22.0 H (9.0-12.0) sec Sodium (137-145) mmol/L Chloride (98-107) mmol/L BUN (9-20) mg/dL Glucose (74-99) mg/dL POC Glucose (mg/dL) 132 H (75-99) mg/dL Calcium (8.4-10.2) mg/dL Ionized Calcium Abimael (4.5-5.3) mg/dL Magnesium (1.6-2.3) mg/dL AST (17-59) U/L ALT (21-72) U/L Total Protein (6.3-8.2) g/dL Crossmatch 01/19/17 01/19/17 01/19/17 Range/Units 05:53 06:10 08:17 RBC 2.03 L (4.30-5.90) m/uL Hgb 6.3 L* (13.0-17.5) gm/dL Hct 18.3 L* (39.0-53.0) % PT (9.0-12.0) sec Sodium 134 L (137-145) mmol/L Chloride 97 L (98-107) mmol/L BUN 25 H (9-20) mg/dL Glucose 118 H (74-99) mg/dL POC Glucose (mg/dL) 117 H (75-99) mg/dL Calcium 8.3 L (8.4-10.2) mg/dL Ionized Calcium Abimael 4.3 L (4.5-5.3) mg/dL Magnesium 2.6 H (1.6-2.3) mg/dL AST 266 H (17-59) U/L ALT 392 H (21-72) U/L Total Protein 5.4 L (6.3-8.2) g/dL Crossmatch 01/19/17 Range/Units 11:45 RBC (4.30-5.90) m/uL Hgb (13.0-17.5) gm/dL Hct (39.0-53.0) % PT (9.0-12.0) sec Sodium (137-145) mmol/L Chloride (98-107) mmol/L BUN (9-20) mg/dL Glucose (74-99) mg/dL POC Glucose (mg/dL) 131 H (75-99) mg/dL Calcium (8.4-10.2) mg/dL Ionized Calcium Abimael (4.5-5.3) mg/dL Magnesium (1.6-2.3) mg/dL AST (17-59) U/L ALT (21-72) U/L Total Protein (6.3-8.2) g/dL Crossmatch Assessment and Plan Plan: Assessment and plan #1 aortic stenosis, status post mechanical aortic valve replacement and aneurysm repair #2 tachycardia, likely exacerbated by anemia #3 anemia, currently being transfused From cardiology perspective, we'll continue current medications. Continue monitor blood pressure closely. We will monitor PT and INR daily. He is scheduled to receive 2 mg of Coumadin tonight for an INR of 2.3. We'll continue to follow the patient and provide further recommendations accordingly. BREAD [facility]NER note has been reviewed, I agree with a documented findings and plan of care. Patient was seen and examined.
[2017-01-19 16:10] LABS: CH 30.8; CHCM 35.4; MCHC 33.1 g/dL (31.0-37.0); MCV 87.8 fL (80.0-100.0); Mean Platelet Volume 7.1; RBC 2.39 m/uL (4.30-5.90); RDW 14.9 % (11.5-15.5); WBC 9.4 k/uL (3.8-10.6)
[2017-01-19 16:14] LABS: HGB 6.9 gm/dL (13.0-17.5)
[2017-01-19 16:58] LABS: Glucose,Whole Blood 120 mg/dL (75-99)
[2017-01-19] MEDS ORDERED: WARFARIN 2 MG TAB PO ONE (18:00)
[2017-01-19 20:40] LABS: Glucose,Whole Blood 132 mg/dL (75-99)
[2017-01-19] MEDS: SENNOSIDES-DOCUSATE SODIUM 1 EACH TAB PO SCH (21:02)
[2017-01-19] MEDS: traMADol 50 MG TAB PO PRN (21:03)
--- NOTE | 2017-01-19 22:02 | PN ---
DATE OF SERVICE: 01/19/2017 PRESENTING COMPLAINT: Aortic valve surgery. INTERVAL HISTORY: This patient is status post bicuspid aortic valve surgery and descending artery aneurysm repair. Patient has been slightly short of breath, tired. Did tolerate some diet. Did pass some flatus. Has been out of bed. Review of systems done for constitutional, cardiovascular, GI, pulmonary; relevant findings as above. Current medications are reviewed that include. 1. Alexander 7.5. 2. Tylenol. On examination, temperature 98.6, pulse 102, respirations 18, blood pressure 116/66, pulse ox 96% on 2 liters. GENERAL APPEARANCE: Sitting up in bed, awake. EYES: Pupils equal. Conjunctivae normal. NECK: JVD unable to assess. Respiratory effort increased. LUNGS: Diminished breath sounds. CARDIOVASCULAR: First and second sounds normal. No edema. ABDOMEN: Soft. Liver and spleen not palpable. PSYCHIATRY: Alert and oriented. Mood and affect normal. INVESTIGATIONS: White count 9.4, hemoglobin 6.9, platelets 220. INR 2.3. Sodium 134, AST 266, ALT 392. On 01/16/2017, the patient liver functions were normal. A 2-D echo shows preserved LV function. ASSESSMENT: 1. Severe aortic valve stenosis with bicuspid calcified aortic valve and moderate dilatation ascending followed by mechanical aortic valve replacement and repair of the ascending aneurysm. 2. Acute blood loss anemia as expected from surgery. 3. Sinus tachycardia, probably from anemia. 4. Coumadin monitoring for therapeutic level. 5. Hypocalcemia. Probably from blood transfusion. 6. Acute hepatitis. Patient has been receiving Tylenol in the form of plain Tylenol and Alexander 7 and that could be ischemic insult to. 7. Hypoalbuminemia as an acute phase reactant. 8. Moderate hypoglycemia, probably as a stress response. 9. Thrombocytopenia, likely, dilutional improving. 10. Small pleural effusion, status post cardiac surgery. PLAN: Given the rise in the LFTs, we will hold off DC Tylenol in any form and uses Ultram for pain control. Repeat that in the morning. LFTs in the morning. Patient has received a total of 2 units of blood. PLAN: Patient encouraged to use inspiratory flowmeter, walk. Repeat LFTs tomorrow morning.
[2017-01-20] MEDS: traMADol 50 MG TAB PO PRN ×4 (01:47→20:45)
[2017-01-20] MEDS: ONDANSETRON 4 MG/2 ML VIAL IVP PRN (01:51)
[2017-01-20 02:16] LABS: Glucose,Whole Blood 111 mg/dL (75-99)
[2017-01-20] MEDS: INSULIN LISPRO (humaLOG) 300 UNIT/3 ML VIAL SQ SCH ×4 (06:35→20:56)
[2017-01-20 06:36] LABS: Glucose,Whole Blood 114 mg/dL (75-99)
[2017-01-20] MEDS: FERROUS SULFATE 325 MG TAB PO SCH ×2 (06:37→17:27)
[2017-01-20 07:01] LABS: INR 2.9 (<1.1); Prothrombin Time 28.5 sec (9.0-12.0)
[2017-01-20 07:07] LABS: ALT 301 U/L (21-72); AST 130 U/L (17-59); Alkaline Phosphatase 52 U/L (38-126); Anion Gap 11 mmol/L; Blood Urea Nitrogen 18 mg/dL (9-20); Carbon Dioxide 26 mmol/L (22-30); Chloride 97 mmol/L (98-107); Glucose 107 mg/dL (74-99); Non-African American GFR(MDRD) >60 (>60 ml/min/1.73 sqM); Potassium 4.3 mmol/L (3.5-5.1); Sodium 134 mmol/L (137-145); Total Protein 5.5 g/dL (6.3-8.2)
[2017-01-20 07:08] LABS: Basophils % (A) 0 %; CH 30.3; CHCM 33.7; Eosinophils # (A) 0.1 k/uL (0-0.7); Eosinophils % (A) 1 %; HCT 20.9 % (39.0-53.0); HDW 3.39; Luc # (Auto) 0.25; Luc % (Auto) 3; Lymphocytes # (A) 1.3 k/uL (1.0-4.8); Lymphocytes % (A) 18 %; MCH 30.1 pg (25.0-35.0); MCHC 33.2 g/dL (31.0-37.0); MCV 90.6 fL (80.0-100.0); Mean Platelet Volume 6.7; Monocytes # (A) 0.6 k/uL (0-1.0); Monocytes % (A) 7 %; Neutrophils # (A) 5.4 k/uL (1.3-7.7); Neutrophils % (A) 71 %; RDW 15.2 % (11.5-15.5); WBC 7.6 k/uL (3.8-10.6); WBC (Perox) 7.93
[2017-01-20 07:11] LABS: HGB 6.9 gm/dL (13.0-17.5)
[2017-01-20] MEDS: METOPROLOL TARTRATE 25 MG TAB PO SCH ×2 (07:44→20:45)
[2017-01-20] MEDS: PANTOPRAZOLE 40 MG TABLET PO SCH (07:44)
[2017-01-20] MEDS: ASPIRIN 81 MG CHEW PO SCH (07:44)
--- NOTE | 2017-01-20 10:28 | XR ---
EXAMINATION TYPE: XR chest 2V DATE OF EXAM: 01/20/2017 10:20 AM COMPARISON: 01/19/2017 TECHNIQUE: PA and lateral views submitted. HISTORY: Shortness of breath FINDINGS: Bilateral infiltrate and pleural effusion are stable. Heart size unchanged. There is postsurgical angus nges. Cannot exclude a 5% left apical pneumothorax. IMPRESSION: 1. Stable bilateral infiltrate and pleural effusion. 2. Findings suspicious for 5% left apical pneumothorax.
[2017-01-20 11:51] LABS: Glucose,Whole Blood 112 mg/dL (75-99)
--- NOTE | 2017-01-20 11:53 | P.PN ---
Subjective This is a 26-year-old male with a history of recent down aortic valve replacement and repair of aortic aneurysm. He has a history of by cuspid aortic valve. He also had aortic aneurysm that was repaired. He is postop day #2. He is feeling well. No major complaints. Seems still a bit groggy. Not doing well well on his incentive spirometer. I recommend that he use it every hour while awake. He is receiving breathing treatments. Other than that no major complaints. A bit of pain. No nausea vomiting. No respiratory difficulty. No diarrhea. Progress note dated 01/18/2017 This patient continues to do well. 26-year-old white male with a history of aortic valve replacement for bicuspid aortic valve and repair of aortic aneurysm. The patient's respiratory status has improved. He is doing better on his incentive spirometer. Less short of breath. Chest tube was removed on the right side. Chest x-ray looks stable. Some basilar atelectasis on the right. Progress note dated 01/20/2017 26-year-old white male with a history of aortic stenosis secondary to bicuspid aortic valve. He also had a proximal aortic dissection that was repaired at the same time as his mechanical aortic valve was placed. He's postop day #5. He is doing well. Continues to improve. His oxygenation is improved. He is doing better on incentive spirometer. Not coughing up any phlegm or blood. No fever no chills. No nausea vomiting or diarrhea. Objective - Vital Signs Vital signs: Vital Signs Temp 98.3 F 01/20/17 11:35 Pulse 100 01/20/17 11:35 Resp 18 01/20/17 11:35 BP 114/65 01/20/17 11:35 Pulse Ox 92 L 01/20/17 11:35 Intake & Output 01/19/17 01/20/17 01/20/17 18:59 06:59 18:59 Intake Total 830 0 Balance 830 0 Weight 94.2 kg Intake: Oral 220 Blood Product 610 0 Rc As-1 Unit 0 [id number] Rc As-1 Unit 310 [id number] Other: Voiding Method Toilet Toilet Urinal Urinal # Voids 1 1 ABP, PAP, CO, CI - Last Documented Arterial Blood Pressure 91/49 Pulmonary Artery Pressure 15/9 Cardiac Output 4.8 Cardiac Index 2.6 - Exam No acute distress, oriented 3. HEENT examination is grossly unremarkable. Mucous membranes are moist. He is wearing nasal O2 at 2 L. Neck supple. Full range of motion. No adenopathy or thyromegaly. Cardio vascular examination reveals regular rhythm rate. S1-S2 normal. No S3- S4 or murmur. Lungs reveal relatively clear breath sounds. A few scattered rhonchi. No wheezes or crackles. Abdomen soft bowel sounds are heard. Extremities are intact. - Labs CBC & Chem 7: 01/20/17 06:01 01/20/17 06:01 Labs: Abnormal Lab Results - Last 24 Hours (Table) 01/18/17 01/19/17 01/19/17 Range/Units 07:19 11:45 15:52 RBC 2.39 L (4.30-5.90) m/uL Hgb 6.9 L* (13.0-17.5) gm/dL Hct 21.0 L (39.0-53.0) % PT (9.0-12.0) sec Sodium (137-145) mmol/L Chloride (98-107) mmol/L Glucose (74-99) mg/dL POC Glucose (mg/dL) 131 H (75-99) mg/dL Calcium (8.4-10.2) mg/dL AST (17-59) U/L ALT (21-72) U/L Total Protein (6.3-8.2) g/dL Crossmatch See Detail 01/19/17 01/19/17 01/20/17 Range/Units 16:38 20:39 02:07 RBC (4.30-5.90) m/uL Hgb (13.0-17.5) gm/dL Hct (39.0-53.0) % PT (9.0-12.0) sec Sodium (137-145) mmol/L Chloride (98-107) mmol/L Glucose (74-99) mg/dL POC Glucose (mg/dL) 120 H 132 H 111 H (75-99) mg/dL Calcium (8.4-10.2) mg/dL AST (17-59) U/L ALT (21-72) U/L Total Protein (6.3-8.2) g/dL Crossmatch 01/20/17 01/20/17 01/20/17 Range/Units 06:01 06:01 06:01 RBC 2.30 L (4.30-5.90) m/uL Hgb 6.9 L* (13.0-17.5) gm/dL Hct 20.9 L (39.0-53.0) % PT 28.5 H (9.0-12.0) sec Sodium 134 L (137-145) mmol/L Chloride 97 L (98-107) mmol/L Glucose 107 H (74-99) mg/dL POC Glucose (mg/dL) (75-99) mg/dL Calcium 8.0 L (8.4-10.2) mg/dL AST 130 H (17-59) U/L ALT 301 H (21-72) U/L Total Protein 5.5 L (6.3-8.2) g/dL Crossmatch 01/20/17 Range/Units 06:34 RBC (4.30-5.90) m/uL Hgb (13.0-17.5) gm/dL Hct (39.0-53.0) % PT (9.0-12.0) sec Sodium (137-145) mmol/L Chloride (98-107) mmol/L Glucose (74-99) mg/dL POC Glucose (mg/dL) 114 H (75-99) mg/dL Calcium (8.4-10.2) mg/dL AST (17-59) U/L ALT (21-72) U/L Total Protein (6.3-8.2) g/dL Crossmatch Assessment and Plan Plan: Assessment and plan Status post aortic valve replacement with mechanical valve for somebody with bicuspid aortic valve aortic stenosis and aortic aneurysm. Postoperative respiratory failure, resolved Plan The patient will be followed. No discharge recommendations are made. He'll continue on updrafts and incentive spirometry. Because of his relatively use, and his health, he should do well and recover quickly. Plan dated 01/17/2017 The patient's are reasonably well. I encouraged him to do better on his incentive spirometer. He needs a deep breathing coughing clear secretions. We' ll continue with updrafts. No additional recommendations are made. Prognosis is guarded but good. Plan dated 01/18/2017 This patient continues to do well. Respiratory status is progressing nicely. We'll continue to follow. Recommend incentive spirometry every hour while awake and coughing clearing of secretions and deep breathing to help his overall respiratory status. Seemed much more awake and alert today. Plan dated 01/20/2017 The patient continues to do well. No additional recommendations are made. We' ll continue to follow. The patient should continue on incentive spirometer. Continue with the updrafts coughing deep breathing and clearing of secretions. Time with Patient: Less than 30
--- NOTE | 2017-01-20 12:41 | P.PN ---
Progress Note - Text CV Surgery Nursing Principal diagnosis: Severe aortic valve stenosis with bicuspid calcified aortic valve. 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 POD #5 aortic valve replacement using a 23 mm mechanical On-X valve bileaflet. Repair of the ascending aortic aneurysm with a supra-coronary conduit using a 30 mm Hemashield straight graft. Intraoperative transesophageal echocardiogram. Epi-aortic scanning. Patient awake and alert, no distress noted, no specific complaints, sitting up to bedside chair. Patient's at bedside. Vital Signs: Afebrile Vital Signs - 24 hr 01/19/17 01/19/17 01/19/17 09:22 10:58 11:08 Temperature 97.3 F L 97.6 F Pulse Rate 100 100 Pulse Rate [ Pulse Oximetery ] Respiratory 16 16 Rate Blood Pressure 106/60 107/63 Blood Pressure [Left Arm] Blood Pressure [Right Arm] O2 Sat by Pulse 97 93 L 99 Oximetry 01/19/17 01/19/17 01/19/17 11:38 11:40 12:00 Temperature 98 F 98.0 F Pulse Rate 98 Pulse Rate [ 93 100 Pulse Oximetery ] Respiratory 16 16 18 Rate Blood Pressure 107/62 Blood Pressure 107/62 107/63 [Left Arm] Blood Pressure [Right Arm] O2 Sat by Pulse 93 L 93 L 99 Oximetry 01/19/17 01/19/17 01/19/17 14:17 15:38 16:00 Temperature 97.6 F 98.6 F Pulse Rate 97 Pulse Rate [ 102 H 102 H Pulse Oximetery ] Respiratory 18 18 Rate Blood Pressure 119/71 Blood Pressure 116/66 [Left Arm] Blood Pressure [Right Arm] O2 Sat by Pulse 97 96 Oximetry 01/19/17 01/19/17 01/19/17 16:23 16:31 20:00 Temperature 98.2 F Pulse Rate Pulse Rate [ 102 H 109 H Pulse Oximetery ] Respiratory 17 Rate Blood Pressure Blood Pressure [Left Arm] Blood Pressure 125/69 [Right Arm] O2 Sat by Pulse 96 94 L Oximetry 01/19/17 01/20/17 01/20/17 21:09 00:00 04:00 Temperature 99.8 F H 98.4 F Pulse Rate Pulse Rate [ 109 H 102 H 98 Pulse Oximetery ] Respiratory 18 18 Rate Blood Pressure Blood Pressure [Left Arm] Blood Pressure 108/65 118/74 [Right Arm] O2 Sat by Pulse 95 99 Oximetry Labs: Short CBC 01/19/17 01/19/17 01/20/17 Range/Units 08:17 15:52 06:01 WBC 9.2 9.4 7.6 (3.8-10.6) k/uL Hgb 6.3 L* 6.9 L* 6.9 L* (13.0-17.5) gm/dL Hct 18.3 L* 21.0 L 20.9 L (39.0-53.0) % Plt Count 189 220 251 (150-450) k/uL Neutrophils # 5.4 (1.3-7.7) k/uL BMP 01/20/17 06:01 Sodium 134 L Potassium 4.3 Chloride 97 L Carbon Dioxide 26 BUN 18 Creatinine 0.70 Glucose 107 H Calcium 8.0 L Liver Function 01/20/17 Range/Units 06:01 Total Bilirubin 1.0 (0.2-1.3) mg/dL AST 130 H (17-59) U/L ALT 301 H (21-72) U/L Alkaline Phosphatase 52 (38-126) U/L Albumin 3.5 (3.5-5.0) g/dL Lungs: Essentially clear throughout, diminished bilateral bases. Respirations are unlabored. O2 sat: 95% on room air. I/S: 1000 mL, reviewed with the patient the importance of using his incentive spirometry every hour while awake. The patient did give a return demonstration on his incentive spirometry and stated at times he can get it up to 1500 mL. Heart: S1S2, regular rhythm and rate, positive aortic valve click heard. Negative for S3, murmur or gallop. Remote telemetry showing sinus tachycardia heart rate 111. Sternum stable, chest incision clean with silverlon dressing clean and dry. Heart hugger in place with proper use demonstrated. Knee-high GIBRAN hose and sequential compression devices in place to bilateral lower extremities. Abdomen: Soft, Positive bowel sounds present in all 4 quadrants, positive bowel movement yesterday 01/19/2017. CBGs: 111-132 mg/dL in the last 24 hours. U/O: Adequate. 24 hr Total: Intake & Output 01/18/17 01/19/17 01/20/17 01/21/17 06:59 06:59 06:59 07:59 Intake Total 622 400 830 Output Total 699 920 Balance -69 -789 830 Weight 93.8 kg 94.1 kg 94.2 kg Active Medications Albuterol/Ipratropium (Duoneb 0.5 Mg-3 Mg/3 Ml Soln) 3 ml INHALATION RT-Q2H PRN PRN Reason: Shortness Of Breath Or Wheezing Aspirin (Aspirin) 81 mg PO DAILY [facility] Last Admin: 01/20/17 07:44 Dose: 81 mg Benzocaine/Menthol (Cepacol Lozenge) 1 each MUCOUS MEM Q2H PRN PRN Reason: Sore Throat Bisacodyl (Dulcolax) 10 mg RECTAL DAILY PRN PRN Reason: Constipation Ferrous Sulfate (Feosol) 325 mg PO BID-W/MEALS [facility] Last Admin: 01/20/17 06:37 Dose: 325 mg Insulin Human Lispro (Humalog) 0 unit SQ ACHS [facility] PRN Reason: Protocol Last Admin: 01/20/17 06:35 Dose: Not Given Magnesium Hydroxide (Milk Of Magnesia) 2,400 mg PO BID PRN PRN Reason: Constipation Last Admin: 01/18/17 09:16 Dose: 2,400 mg Metoclopramide HCl (Reglan) 10 mg IVP Q4H PRN PRN Reason: Nausea And Vomiting Last Admin: 01/19/17 08:38 Dose: 10 mg Metoprolol Tartrate (Lopressor) 25 mg PO BID [facility] Last Admin: 01/20/17 07:44 Dose: 25 mg Miscellaneous Information (Magnesium Per Protocol) 1 each MISCELLANE DAILY PRN ; Protocol PRN Reason: Per Protocol Miscellaneous Information (Phosphorus Per Protocol) 1 each MISCELLANE DAILY PRN ; Protocol PRN Reason: Per Protocol Miscellaneous Information (Potassium Per Protocol) 1 each MISCELLANE DAILY PRN ; Protocol PRN Reason: Per Protocol Ondansetron HCl (Zofran) 4 mg IVP Q6HR PRN PRN Reason: Nausea And Vomiting Last Admin: 01/20/17 01:51 Dose: 4 mg Pantoprazole Sodium (Protonix) 40 mg PO DAILY [facility] Last Admin: 01/20/17 07:44 Dose: 40 mg Senna/Docusate Sodium (Senokot-S) 2 each PO HS [facility] Last Admin: 01/19/17 21:02 Dose: 2 each Sodium Chloride (Saline Flush) 10 ml IV BID [facility] Last Admin: 01/20/17 07:45 Dose: Not Given Sodium Chloride (Saline Flush) 10 ml IV Q12HR [facility] Last Admin: 01/20/17 07:45 Dose: Not Given Tramadol HCl (Ultram) 100 mg PO QID PRN PRN Reason: Pain Last Admin: 01/20/17 07:43 Dose: 50 mg Plan: 1. Continue aspirin to 81 mg daily. 2. Continue metoprolol with hold parameters. 3. Will continue to hold statin at this time as AST/ALT still elevated. Will restart when liver enzymes have returned to normal. 4. Encourage incentive spirometry use every hour while awake. 5. Increase activity, ambulate in hallway at least 4 times today. Physical therapy to follow 6. GI/DVT prophylaxis. 7. Monitor labs, I/Os. Hemoglobin 6.9 this morning. 1 unit PRBCs has been ordered to transfuse this a.m. 8. Blood glucose control per primary service 9. Two-view chest x-ray this a.m. 10. Probable DC home soon
--- NOTE | 2017-01-20 16:01 | P.PN ---
Subjective Principal diagnosis: Aortic stenosis This is a pleasant 26-year-old gentleman who is status post aortic valve replacement and repair of aortic aneurysm. He was seen and examined today. Overall he is doing okay, complains of feeling a bit better, a little more energy. Hemoglobin was 6.9 today and he received one unit of PRBCs this morning. He has been using his incentive spirometer. He has been up walking and denies complaints of shortness of breath. His heart rate remains in the 90s to low 100s. Objective - Vital Signs Vital signs: Vital Signs Temp 98 F 01/20/17 14:02 Pulse 99 01/20/17 14:02 Resp 18 01/20/17 14:02 BP 115/75 01/20/17 14:02 Pulse Ox 94 L 01/20/17 14:02 Intake & Output 01/19/17 01/20/17 01/20/17 18:59 06:59 18:59 Intake Total 830 710 Balance 830 710 Weight 94.2 kg Intake: Oral 220 400 Blood Product 610 310 As-1 Unit 310 [id number] As-1 Unit 310 [id number] Other: Voiding Method Toilet Toilet Urinal Urinal # Voids 1 1 ABP, PAP, CO, CI - Last Documented Arterial Blood Pressure 91/49 Pulmonary Artery Pressure 15/9 Cardiac Output 4.8 Cardiac Index 2.6 - Exam PHYSICAL EXAMINATION: HEENT: Head is atraumatic, normocephalic. Pupils equal, round. Neck is supple. There is no elevated jugular venous pressure. HEART EXAMINATION: Heart sounds regular, S1 and S2 normal. No murmur or gallop heard. CHEST EXAMINATION: Lungs reveal faint crackles bilateral bases. No chest wall tenderness is noted on palpation or with deep breathing. Dressing dry and intact and midsternal incision. ABDOMEN: Soft, nontender. Bowel sounds are heard. No organomegaly noted. EXTREMITIES: 2+ peripheral pulses with no evidence of peripheral edema and no calf tenderness noted. NEUROLOGIC patient is awake, alert and oriented x3. . - Labs CBC & Chem 7: 01/20/17 06:01 01/20/17 06:01 Labs: Abnormal Lab Results - Last 24 Hours (Table) 01/18/17 01/19/17 01/19/17 Range/Units 07:19 15:52 16:38 RBC 2.39 L (4.30-5.90) m/uL Hgb 6.9 L* (13.0-17.5) gm/dL Hct 21.0 L (39.0-53.0) % PT (9.0-12.0) sec Sodium (137-145) mmol/L Chloride (98-107) mmol/L Glucose (74-99) mg/dL POC Glucose (mg/dL) 120 H (75-99) mg/dL Calcium (8.4-10.2) mg/dL AST (17-59) U/L ALT (21-72) U/L Total Protein (6.3-8.2) g/dL Crossmatch See Detail 01/19/17 01/20/17 01/20/17 Range/Units 20:39 02:07 06:01 RBC 2.30 L (4.30-5.90) m/uL Hgb 6.9 L* (13.0-17.5) gm/dL Hct 20.9 L (39.0-53.0) % PT (9.0-12.0) sec Sodium (137-145) mmol/L Chloride (98-107) mmol/L Glucose (74-99) mg/dL POC Glucose (mg/dL) 132 H 111 H (75-99) mg/dL Calcium (8.4-10.2) mg/dL AST (17-59) U/L ALT (21-72) U/L Total Protein (6.3-8.2) g/dL Crossmatch 01/20/17 01/20/17 01/20/17 Range/Units 06:01 06:01 06:34 RBC (4.30-5.90) m/uL Hgb (13.0-17.5) gm/dL Hct (39.0-53.0) % PT 28.5 H (9.0-12.0) sec Sodium 134 L (137-145) mmol/L Chloride 97 L (98-107) mmol/L Glucose 107 H (74-99) mg/dL POC Glucose (mg/dL) 114 H (75-99) mg/dL Calcium 8.0 L (8.4-10.2) mg/dL AST 130 H (17-59) U/L ALT 301 H (21-72) U/L Total Protein 5.5 L (6.3-8.2) g/dL Crossmatch 01/20/17 Range/Units 11:30 RBC (4.30-5.90) m/uL Hgb (13.0-17.5) gm/dL Hct (39.0-53.0) % PT (9.0-12.0) sec Sodium (137-145) mmol/L Chloride (98-107) mmol/L Glucose (74-99) mg/dL POC Glucose (mg/dL) 112 H (75-99) mg/dL Calcium (8.4-10.2) mg/dL AST (17-59) U/L ALT (21-72) U/L Total Protein (6.3-8.2) g/dL Crossmatch Assessment and Plan Plan: Assessment and plan #1 aortic stenosis, status post mechanical aortic valve replacement and aneurysm repair #2 tachycardia, likely exacerbated by anemia #3 anemia, currently being transfused From cardiology perspective, we'll continue current medications. Continue monitor blood pressure and pulse closely. We will monitor PT and INR daily. INR today is 2.9. We'll continue to follow the patient and provide further recommendations accordingly. CUSTOMER FIELD REPRESENTATIVE note has been reviewed, I agree with a documented findings and plan of care. Patient was seen and examined.
[2017-01-20 16:42] LABS: Glucose,Whole Blood 107 mg/dL (75-99)
--- NOTE | 2017-01-20 19:38 | PN ---
DATE OF SERVICE: 01/20/2017 PRESENTING COMPLAINT: Aortic valve surgery. INTERVAL HISTORY: Patient is status post bicuspid aortic valve surgery and ascending aortic aneurysm repair. Patient's LFTs are up hence acetaminophen including Lortab was all discontinued. Pain is controlled. He ate about 50% of his breakfast. He has been out in the hallway. Review of systems done for constitutional, cardiovascular, GI, pulmonary; relevant findings as above. Current medications are reviewed. On examination, temperature 98, pulse 99, respiration 18, blood pressure 115/75, pulse ox 94% on room air. GENERAL APPEARANCE: Sitting up, more comfortable. EYES: Pupils equal. Conjunctivae normal. NECK: JVD unable to assess. Mass not palpable. RESPIRATORY: Effort increased. Lungs improved air entry. CARDIOVASCULAR: First and second sounds normal. No edema. ABDOMEN: Soft, nontender. Liver and spleen not palpable. PSYCHIATRY: Alert and oriented times three, mood and affect is normal. INVESTIGATIONS: Chest x-ray reviewed shows left pleural effusion, hemoglobin 6.9, INR 2.9. Potassium 4.3. Accu-Cheks noted. AST and ALT is 130 and 301. ASSESSMENT: 1. Severe aortic valve stenosis with bicuspid calcified aortic valve and moderate dilatation ascending aorta followed by mechanical aortic valve replacement and repair of the ascending aneurysm. 2. Acute blood loss anemia as expected from surgery. Patient getting blood transfusion. 3. Sinus tachycardia, probably from anemia. 4. Coumadin monitoring for therapeutic level. 5. Hypercalcemia, probably from blood transfusion. 6. Acute hepatitis. Patient is receiving acetaminophen, could be a component of ischemic hepatitis. 7. Hypoalbuminemia with an acute phase reactant. 8. Moderate hyperglycemia as a response to stress. 9. Thrombocytopenia, actually dilutional improving. 10. Left-sided pleural effusion. Post cardiac surgery. PLAN: Overall the patient is doing better. Keep the patient on Ultram. Getting another unit of blood today. Care was discussed with the patient and Dr. Guevara. We will repeat LFTs in the morning.
[2017-01-20] MEDS: SENNOSIDES-DOCUSATE SODIUM 1 EACH TAB PO SCH (20:45)
[2017-01-20 20:55] LABS: Glucose,Whole Blood 99 mg/dL (75-99)
[2017-01-21 01:58] LABS: Glucose,Whole Blood 114 mg/dL (75-99)
[2017-01-21] MEDS: traMADol 50 MG TAB PO PRN ×4 (03:37→23:18)
[2017-01-21 06:08] LABS: Glucose,Whole Blood 116 mg/dL (75-99)
[2017-01-21] MEDS: INSULIN LISPRO (humaLOG) 300 UNIT/3 ML VIAL SQ SCH ×4 (06:18→20:51)
[2017-01-21] MEDS: FERROUS SULFATE 325 MG TAB PO SCH (06:33)
[2017-01-21 06:40] LABS: INR 1.5 (<1.1)
[2017-01-21 06:41] LABS: Prothrombin Time 14.7 sec (9.0-12.0)
[2017-01-21 06:44] LABS: Basophils % (A) 0 %; CH 30.5; CHCM 34.6; Eosinophils # (A) 0.1 k/uL (0-0.7); Eosinophils % (A) 1 %; HCT 25.2 % (39.0-53.0); HDW 3.71; Luc # (Auto) 0.27; Luc % (Auto) 3; Lymphocytes # (A) 1.5 k/uL (1.0-4.8); Lymphocytes % (A) 18 %; MCH 29.8 pg (25.0-35.0); MCHC 33.4 g/dL (31.0-37.0); MCV 89.1 fL (80.0-100.0); Monocytes # (A) 0.8 k/uL (0-1.0); Monocytes % (A) 10 %; Neutrophils # (A) 5.6 k/uL (1.3-7.7); Neutrophils % (A) 68 %; Poikilocytosis Slight; RBC 2.82 m/uL (4.30-5.90); RDW 15.7 % (11.5-15.5); WBC 8.2 k/uL (3.8-10.6)
[2017-01-21 06:48] LABS: ALT 236 U/L (21-72); AST 78 U/L (17-59); Alkaline Phosphatase 56 U/L (38-126); Anion Gap 15 mmol/L; Blood Urea Nitrogen 15 mg/dL (9-20); Calcium 8.3 mg/dL (8.4-10.2); Carbon Dioxide 24 mmol/L (22-30); Chloride 98 mmol/L (98-107); Glucose 107 mg/dL (74-99); Non-African American GFR(MDRD) >60 (>60 ml/min/1.73 sqM); Sodium 137 mmol/L (137-145); Total Bilirubin 1.1 mg/dL (0.2-1.3); Total Protein 5.8 g/dL (6.3-8.2)
[2017-01-21 07:18] LABS: HGB 8.4 gm/dL (13.0-17.5)
[2017-01-21] MEDS: HEPARIN SODIUM,PORCINE 5,000 UNIT/ML 1 ML VIAL SQ SCH ×3 (08:32→23:19)
[2017-01-21] MEDS: PANTOPRAZOLE 40 MG TABLET PO SCH (08:38)
[2017-01-21] MEDS: ASPIRIN 81 MG CHEW PO SCH (08:38)
[2017-01-21] MEDS: METOPROLOL TARTRATE 25 MG TAB PO SCH ×2 (08:38→20:47)
[2017-01-21 10:46] VITALS: RESP 18
--- NOTE | 2017-01-21 11:25 | P.PN ---
Subjective This is a 26-year-old male with a history of recent down aortic valve replacement and repair of aortic aneurysm. He has a history of by cuspid aortic valve. He also had aortic aneurysm that was repaired. He is postop day #2. He is feeling well. No major complaints. Seems still a bit groggy. Not doing well well on his incentive spirometer. I recommend that he use it every hour while awake. He is receiving breathing treatments. Other than that no major complaints. A bit of pain. No nausea vomiting. No respiratory difficulty. No diarrhea. Progress note dated 01/18/2017 This patient continues to do well. 26-year-old white male with a history of aortic valve replacement for bicuspid aortic valve and repair of aortic aneurysm. The patient's respiratory status has improved. He is doing better on his incentive spirometer. Less short of breath. Chest tube was removed on the right side. Chest x-ray looks stable. Some basilar atelectasis on the right. Progress note dated 01/20/2017 26-year-old white male with a history of aortic stenosis secondary to bicuspid aortic valve. He also had a proximal aortic dissection that was repaired at the same time as his mechanical aortic valve was placed. He's postop day #5. He is doing well. Continues to improve. His oxygenation is improved. He is doing better on incentive spirometer. Not coughing up any phlegm or blood. No fever no chills. No nausea vomiting or diarrhea. Progress note dated 01/21/2017 26-year-old male with a history of aortic stenosis secondary to a bicuspid aortic valve. He also had a dissection repair. He is doing well. Postop day # 6. Receive a unit of blood yesterday. Doing better on his incentive spirometer. Has been weaned down to room air. No additional complaints. No chest pain chest discomfort. Was very groggy the first couple of days. Doing better now. Objective - Vital Signs Vital signs: Vital Signs Temp 97.8 F 01/21/17 04:00 Pulse 104 H 01/21/17 08:00 Resp 18 01/21/17 08:00 BP 126/78 01/21/17 08:00 Pulse Ox 96 01/21/17 08:00 Intake & Output 01/20/17 01/21/17 01/21/17 17:59 06:59 18:59 Intake Total 120 Balance 120 Weight Intake: Oral 120 Blood Product Rc As-1 Unit [id number] Other: Voiding Method # Voids 0 # Bowel Movements 0 ABP, PAP, CO, CI - Last Documented Arterial Blood Pressure 91/49 Pulmonary Artery Pressure 15/9 Cardiac Output 4.8 Cardiac Index 2.6 - Exam No acute distress, oriented 3. HEENT examination is grossly unremarkable. Mucous membranes are moist. He is wearing nasal O2 at 2 L. Neck supple. Full range of motion. No adenopathy or thyromegaly. Cardio vascular examination reveals regular rhythm rate. S1-S2 normal. No S3- S4 or murmur. Lungs reveal relatively clear breath sounds. A few scattered rhonchi. No wheezes or crackles. Abdomen soft bowel sounds are heard. Extremities are intact. - Labs CBC & Chem 7: 01/21/17 05:35 01/21/17 05:35 Labs: Abnormal Lab Results - Last 24 Hours (Table) 01/18/17 01/20/17 01/20/17 Range/Units 07:19 11:30 16:34 RBC (4.30-5.90) m/uL Hgb (13.0-17.5) gm/dL Hct (39.0-53.0) % RDW (11.5-15.5) % PT (9.0-12.0) sec Glucose (74-99) mg/dL POC Glucose (mg/dL) 112 H 107 H (75-99) mg/dL Calcium (8.4-10.2) mg/dL AST (17-59) U/L ALT (21-72) U/L Total Protein (6.3-8.2) g/dL Crossmatch See Detail 01/21/17 01/21/17 01/21/17 Range/Units 01:57 05:35 05:35 RBC 2.82 L (4.30-5.90) m/uL Hgb 8.4 L D (13.0-17.5) gm/dL Hct 25.2 L (39.0-53.0) % RDW 15.7 H (11.5-15.5) % PT 14.7 H (9.0-12.0) sec Glucose (74-99) mg/dL POC Glucose (mg/dL) 114 H (75-99) mg/dL Calcium (8.4-10.2) mg/dL AST (17-59) U/L ALT (21-72) U/L Total Protein (6.3-8.2) g/dL Crossmatch 01/21/17 01/21/17 Range/Units 05:35 06:08 RBC (4.30-5.90) m/uL Hgb (13.0-17.5) gm/dL Hct (39.0-53.0) % RDW (11.5-15.5) % PT (9.0-12.0) sec Glucose 107 H (74-99) mg/dL POC Glucose (mg/dL) 116 H (75-99) mg/dL Calcium 8.3 L (8.4-10.2) mg/dL AST 78 H (17-59) U/L ALT 236 H (21-72) U/L Total Protein 5.8 L (6.3-8.2) g/dL Crossmatch Assessment and Plan Plan: Assessment and plan Status post aortic valve replacement with mechanical valve for somebody with bicuspid aortic valve aortic stenosis and aortic aneurysm. Postoperative respiratory failure, resolved Plan The patient will be followed. No discharge recommendations are made. He'll continue on updrafts and incentive spirometry. Because of his relatively use, and his health, he should do well and recover quickly. Plan dated 01/17/2017 The patient's are reasonably well. I encouraged him to do better on his incentive spirometer. He needs a deep breathing coughing clear secretions. We' ll continue with updrafts. No additional recommendations are made. Prognosis is guarded but good. Plan dated 01/18/2017 This patient continues to do well. Respiratory status is progressing nicely. We'll continue to follow. Recommend incentive spirometry every hour while awake and coughing clearing of secretions and deep breathing to help his overall respiratory status. Seemed much more awake and alert today. Plan dated 01/20/2017 The patient continues to do well. No additional recommendations are made. We' ll continue to follow. The patient should continue on incentive spirometer. Continue with the updrafts coughing deep breathing and clearing of secretions. Plan dated 01/21/2017 The patient continues to do well. Possible discharge today or tomorrow. Thoracic surgery has not seen the patient as yet. Encourage deep breathing coughing and clearing her secretions as well as every hour use of incentive spirometer. Time with Patient: Less than 30
[2017-01-21] MEDS ORDERED: FUROSEMIDE 10 MG/ML 2 ML VIAL IV ONE (12:03)
[2017-01-21 12:12] LABS: Glucose,Whole Blood 109 mg/dL (75-99)
--- NOTE | 2017-01-21 12:13 | P.PN ---
Progress Note - Text CV Surgery Nursing Principal diagnosis: Severe aortic valve stenosis with bicuspid calcified aortic valve. 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 POD #6 aortic valve replacement using a 23 mm mechanical On-X valve bileaflet. Repair of the ascending aortic aneurysm with a supra-coronary conduit using a 30 mm Hemashield straight graft. Intraoperative transesophageal echocardiogram. Epi-aortic scanning. Patient awake and alert, no distress noted, no specific complaints, patient states he feels much better today. Vital Signs: Afebrile Vital Signs - 24 hr 01/20/17 01/20/17 01/20/17 10:52 11:04 11:35 Temperature 99.5 F 98.8 F 98.3 F Pulse Rate 94 98 100 Pulse Rate [ Bilateral Dorsalis Pedis] Pulse Rate [ Pulse Oximetery ] Respiratory 18 18 18 Rate Blood Pressure 114/66 108/67 114/65 Blood Pressure [Right Arm] O2 Sat by Pulse 91 L 92 L 92 L Oximetry 01/20/17 01/20/17 01/20/17 12:00 14:02 16:00 Temperature 98.3 F 98 F Pulse Rate 99 Pulse Rate [ 104 H Bilateral Dorsalis Pedis] Pulse Rate [ 100 114 H Pulse Oximetery ] Respiratory 18 18 18 Rate Blood Pressure 115/75 Blood Pressure 114/65 128/71 [Right Arm] O2 Sat by Pulse 92 L 94 L 96 Oximetry 01/20/17 01/21/17 01/21/17 20:00 00:00 04:00 Temperature 98.4 F 98.1 F 97.8 F Pulse Rate Pulse Rate [ Bilateral Dorsalis Pedis] Pulse Rate [ 107 H 98 104 H Pulse Oximetery ] Respiratory 18 17 16 Rate Blood Pressure Blood Pressure 131/74 129/79 127/76 [Right Arm] O2 Sat by Pulse 96 96 96 Oximetry 01/21/17 08:00 Temperature Pulse Rate Pulse Rate [ 104 H Bilateral Dorsalis Pedis] Pulse Rate [ 104 H Pulse Oximetery ] Respiratory 18 Rate Blood Pressure Blood Pressure 126/78 [Right Arm] O2 Sat by Pulse 96 Oximetry Labs: Short CBC 01/21/17 Range/Units 05:35 WBC 8.2 (3.8-10.6) k/uL Hgb 8.4 L D (13.0-17.5) gm/dL Hct 25.2 L (39.0-53.0) % Plt Count 355 (150-450) k/uL Neutrophils # 5.6 (1.3-7.7) k/uL BMP 01/21/17 05:35 Sodium 137 Potassium 4.0 Chloride 98 Carbon Dioxide 24 BUN 15 Creatinine 0.70 Glucose 107 H Calcium 8.3 L Liver Function 01/21/17 Range/Units 05:35 Total Bilirubin 1.1 (0.2-1.3) mg/dL AST 78 H (17-59) U/L ALT 236 H (21-72) U/L Alkaline Phosphatase 56 (38-126) U/L Albumin 3.6 (3.5-5.0) g/dL Lungs: Essentially clear throughout, respirations are unlabored. O2 sat: 96% on room air. I/S: 750 mL, the patient states he is having some pain to his left lateral chest wall when taking deep breaths which is limiting his use of his incentive spirometry. Reviewed with the patient the importance of using his incentive spirometry every hour while awake. The patient did give a good return demonstration on his incentive spirometry. Heart: S1S2, regular rhythm and rate, positive aortic valve click. Negative for S3, gallop, or murmur. Sternum stable, chest incision clean with silverlon dressing clean and dry. Heart hugger in place. Knee-high GIBRAN hose and sequential compression devices in place to bilateral lower extremities. Abdomen: Soft, Positive bowel sounds present in all 4 quadrants, positive bowel movement today 01/21/2017. CBGs: 99-116 mg/dL in the last 24 hours. U/O: Adequate. Active Medications Albuterol/Ipratropium (Duoneb 0.5 Mg-3 Mg/3 Ml Soln) 3 ml INHALATION RT-Q2H PRN PRN Reason: Shortness Of Breath Or Wheezing Aspirin (Aspirin) 81 mg PO DAILY [facility] Last Admin: 01/21/17 08:38 Dose: 81 mg Bisacodyl (Dulcolax) 10 mg RECTAL DAILY PRN PRN Reason: Constipation Heparin Sodium (Porcine) (Heparin) 5,000 unit SQ Q8HR [facility] Last Admin: 01/21/17 08:32 Dose: 5,000 unit Insulin Human Lispro (Humalog) 0 unit SQ ACHS [facility] PRN Reason: Protocol Last Admin: 01/21/17 06:18 Dose: Not Given Magnesium Hydroxide (Milk Of Magnesia) 2,400 mg PO BID PRN PRN Reason: Constipation Last Admin: 01/18/17 09:16 Dose: 2,400 mg Metoprolol Tartrate (Lopressor) 25 mg PO BID [facility] Last Admin: 01/21/17 08:38 Dose: 25 mg Miscellaneous Information (Magnesium Per Protocol) 1 each MISCELLANE DAILY PRN ; Protocol PRN Reason: Per Protocol Miscellaneous Information (Phosphorus Per Protocol) 1 each MISCELLANE DAILY PRN ; Protocol PRN Reason: Per Protocol Miscellaneous Information (Potassium Per Protocol) 1 each MISCELLANE DAILY PRN ; Protocol PRN Reason: Per Protocol Ondansetron HCl (Zofran) 4 mg IVP Q6HR PRN PRN Reason: Nausea And Vomiting Last Admin: 01/20/17 01:51 Dose: 4 mg Pantoprazole Sodium (Protonix) 40 mg PO DAILY [facility] Last Admin: 01/21/17 08:38 Dose: 40 mg Senna/Docusate Sodium (Senokot-S) 2 each PO HS [facility] Last Admin: 01/20/17 20:45 Dose: 2 each Sodium Chloride (Saline Flush) 10 ml IV BID [facility] Last Admin: 01/21/17 08:38 Dose: 10 ml Sodium Chloride (Saline Flush) 10 ml IV Q12HR [facility] Last Admin: 01/21/17 08:38 Dose: 10 ml Tramadol HCl (Ultram) 100 mg PO QID PRN PRN Reason: Pain Last Admin: 01/21/17 10:37 Dose: 100 mg Plan: 1. Continue aspirin to 81 mg daily. Continue metoprolol with hold parameters. 2. Coumadin 3 mg by mouth today at 1800. Recheck PT and INR in a.m. 3. Will continue to hold statin at this time as AST/ALT still elevated. Will restart when liver enzymes have returned to normal. 4. We will restart subcu heparin 5000 units subcu every 8 hours until his INR is therapeutic on Coumadin. 5. Increase activity, ambulate in hallway at least 4 times today. Physical therapy to follow 6. GI/DVT prophylaxis. 7. Monitor labs, I/Os. 8. Blood glucose control per primary service 9. Lasix 20 mg IV 1 today. 10. Encourage incentive spirometry use every hour while awake 11. Probable DC home soon. Discharge planning in place.
[2017-01-21 16:57] LABS: Glucose,Whole Blood 107 mg/dL (75-99)
[2017-01-21] MEDS ORDERED: WARFARIN 3 MG TAB PO ONE (18:00)
--- NOTE | 2017-01-21 18:46 | P.PN ---
Subjective This patient is status post aortic valve replacement. Patient is doing fairly well. Denies any chest pain shortness of breath no arrhythmias are noted. Objective - Vital Signs Vital signs: Vital Signs Temp 97.8 F 01/21/17 04:00 Pulse 104 H 01/21/17 16:00 Resp 18 01/21/17 16:00 BP 134/71 01/21/17 16:00 Pulse Ox 98 01/21/17 16:00 Intake & Output 01/20/17 01/21/17 01/21/17 17:59 06:59 18:59 Intake Total 640 Balance 640 Weight Intake: Oral 640 Blood Product Rc As-1 Unit [id number] Other: Voiding Method # Voids 0 # Bowel Movements 0 ABP, PAP, CO, CI - Last Documented Arterial Blood Pressure 91/49 Pulmonary Artery Pressure 15/9 Cardiac Output 4.8 Cardiac Index 2.6 - Exam Patient's vital signs are reviewed. Heart first and second heart sounds are normal prosthetic click crisp Lungs are clinically clear to auscultation and percussion. His INR is 1.5. - Labs CBC & Chem 7: 01/21/17 05:35 01/21/17 05:35 Labs: Abnormal Lab Results - Last 24 Hours (Table) 01/21/17 01/21/17 01/21/17 Range/Units 01:57 05:35 05:35 RBC 2.82 L (4.30-5.90) m/uL Hgb 8.4 L D (13.0-17.5) gm/dL Hct 25.2 L (39.0-53.0) % RDW 15.7 H (11.5-15.5) % PT 14.7 H (9.0-12.0) sec Glucose (74-99) mg/dL POC Glucose (mg/dL) 114 H (75-99) mg/dL Calcium (8.4-10.2) mg/dL AST (17-59) U/L ALT (21-72) U/L Total Protein (6.3-8.2) g/dL 01/21/17 01/21/17 01/21/17 Range/Units 05:35 06:08 12:09 RBC (4.30-5.90) m/uL Hgb (13.0-17.5) gm/dL Hct (39.0-53.0) % RDW (11.5-15.5) % PT (9.0-12.0) sec Glucose 107 H (74-99) mg/dL POC Glucose (mg/dL) 116 H 109 H (75-99) mg/dL Calcium 8.3 L (8.4-10.2) mg/dL AST 78 H (17-59) U/L ALT 236 H (21-72) U/L Total Protein 5.8 L (6.3-8.2) g/dL 01/21/17 Range/Units 16:55 RBC (4.30-5.90) m/uL Hgb (13.0-17.5) gm/dL Hct (39.0-53.0) % RDW (11.5-15.5) % PT (9.0-12.0) sec Glucose (74-99) mg/dL POC Glucose (mg/dL) 107 H (75-99) mg/dL Calcium (8.4-10.2) mg/dL AST (17-59) U/L ALT (21-72) U/L Total Protein (6.3-8.2) g/dL Assessment and Plan Plan: Patient is stable status post aortic valve replacement. Expected discharge the next 24 hours.
[2017-01-21] MEDS: SENNOSIDES-DOCUSATE SODIUM 1 EACH TAB PO SCH (20:48)
[2017-01-21 20:51] LABS: Glucose,Whole Blood 98 mg/dL (75-99)
[2017-01-22 02:01] LABS: Glucose,Whole Blood 106 mg/dL (75-99)
[2017-01-22 06:23] LABS: Glucose,Whole Blood 97 mg/dL (75-99)
[2017-01-22] MEDS: INSULIN LISPRO (humaLOG) 300 UNIT/3 ML VIAL SQ SCH ×2 (06:24→14:21)
[2017-01-22] MEDS: traMADol 50 MG TAB PO PRN ×2 (06:48→14:29)
[2017-01-22 06:49] LABS: Basophils % (A) 0 %; CH 29.9; CHCM 32.8; Eosinophils # (A) 0.2 k/uL (0-0.7); Eosinophils % (A) 2 %; HCT 26.8 % (39.0-53.0); HDW 3.89; HGB 8.8 gm/dL (13.0-17.5); Hypochromasia Slight; Luc # (Auto) 0.32; Luc % (Auto) 4; Lymphocytes % (A) 13 %; MCH 30.1 pg (25.0-35.0); MCHC 32.7 g/dL (31.0-37.0); MCV 92.2 fL (80.0-100.0); Mean Platelet Volume 6.7; Monocytes # (A) 0.6 k/uL (0-1.0); Monocytes % (A) 7 %; Neutrophils # (A) 5.8 k/uL (1.3-7.7); Neutrophils % (A) 74 %; Poikilocytosis Slight; RBC 2.91 m/uL (4.30-5.90); RDW 15.5 % (11.5-15.5); WBC 7.9 k/uL (3.8-10.6); WBC (Perox) 8.73
[2017-01-22 06:54] LABS: INR 1.3 (<1.1); Prothrombin Time 12.4 sec (9.0-12.0)
[2017-01-22 07:05] LABS: ALT 193 U/L (21-72); AST 56 U/L (17-59); Alkaline Phosphatase 58 U/L (38-126); Anion Gap 12 mmol/L; Blood Urea Nitrogen 13 mg/dL (9-20); Calcium 9.1 mg/dL (8.4-10.2); Carbon Dioxide 26 mmol/L (22-30); Chloride 102 mmol/L (98-107); Glucose 93 mg/dL (74-99); Non-African American GFR(MDRD) >60 (>60 ml/min/1.73 sqM); Potassium 4.2 mmol/L (3.5-5.1); Sodium 140 mmol/L (137-145); Total Bilirubin 1.1 mg/dL (0.2-1.3); Total Protein 6.3 g/dL (6.3-8.2)
--- NOTE | 2017-01-22 07:06 | PN ---
DATE OF SERVICE: 01/21/2017 PRESENTING COMPLAINT: Aortic valve surgery. INTERVAL HISTORY: Patient is status post bicuspid aortic valve surgery and ascending aortic aneurysm repair. Patient did have bowel movements last night, feeling better, walking much better, tolerating his diet. Review of systems done for constitutional, cardiovascular, GI, pulmonary; relevant findings as above. Pain is controlled. Current medications are reviewed. On examination, afebrile, pulse 91, respiration 18, blood pressure 130/71, pulse ox 98% on room air. GENERAL APPEARANCE: Sitting up in a chair, comfortable. EYES: Pupils equal. Conjunctivae normal. NECK: JVD not raised. Mass not palpable. Respiratory effort normal. LUNGS: Fair air entry. CARDIOVASCULAR: First and second sounds normal. No edema. ABDOMEN: Soft, nontender. Liver and spleen not palpable. PSYCHIATRY: Alert and oriented x3. Mood and affect normal. INVESTIGATIONS: AST 78, ALT 236. ASSESSMENT: 1. Severe aortic valve stenosis with bicuspid calcified aortic valve and moderate dilatation of ascending aorta followed by mechanical aortic valve replacement and repair of the ascending aneurysm. 2. Acute blood loss anemia as expected from surgery. Patient did get blood transfusion. 3. Sinus tachycardia from anemia, improved. 4. Coumadin monitoring for therapeutic level for the mechanical aortic valve. 5. Hypocalcemia from blood transfusion, improved. 6. Acute hepatitis, could be ischemic hepatitis component. Patient taking acetaminophen, drug-induced, now improving. 7. Hypoalbuminemia as an acute phase reactant. 8. Hyperglycemia with response to stress, improving. 9. Thrombocytopenia, dilutional, improving. 10. Left-sided small pleural effusion post cardiac surgery. PLAN: Overall continue to do much better. Pain is well-controlled. LFTs are coming down nicely.
--- NOTE | 2017-01-22 07:10 | XR ---
EXAMINATION TYPE: XR chest 2V DATE OF EXAM: 01/22/2017 6:31 AM COMPARISON: Chest x-ray 20 January 2017 HISTORY: Postop cardiac surgery TECHNIQUE: Frontal and lateral views of the chest are obtained. FINDINGS: Bibasilar increased density is again noted, there is blunting of the costophrenic angles. Patient is post median sternotomy. Aortic valve replacement change is noted. Heart size is stable. No evident significant change, minimal left-sided apical pneumothorax is suspected. There are overlying cardiac leads. Pulmonary vascularity and juan are unchanged. IMPRESSION: Basilar effusions and associated atelectasis. Postop change. Minimal left apical pneumot horax is stable to slightly improved.
[2017-01-22] MEDS: ASPIRIN 81 MG CHEW PO SCH (07:56)
[2017-01-22] MEDS: HEPARIN SODIUM,PORCINE 5,000 UNIT/ML 1 ML VIAL SQ SCH (07:57)
[2017-01-22] MEDS: METOPROLOL TARTRATE 25 MG TAB PO SCH (07:57)
[2017-01-22] MEDS: PANTOPRAZOLE 40 MG TABLET PO SCH (07:58)
[2017-01-22] MEDS ORDERED: ENOXAPARIN 100 MG/ML SYRINGE SQ STA (08:04)
[2017-01-22] MEDS ORDERED: FUROSEMIDE 40 MG TAB PO SCH (09:00)
[2017-01-22] MEDS ORDERED: POTASSIUM CHLORIDE ER 10 MEQ TAB.ER.PRT PO SCH (09:00)
[2017-01-22] MEDS ORDERED: traMADol 50 MG TAB PO STA (10:06)
--- NOTE | 2017-01-22 11:42 | P.PN ---
Subjective This is a very pleasant 26-year-old gentleman with history of severe aortic stenosis and bicuspid calcified aortic valve. He presented here on 01/15/2017 for an elective aortic valve replacement which was performed . This is postoperative day #7.The patient is doing well. He has no specific complaints. Is ambulating. He is using incentive spirometer. He is on room air oxygen. Chest x-ray from today shows a small left-sided pleural effusion otherwise no other acute abnormalities are seen. The patient is slightly tachycardic and he remains in sinus rhythm and his heart rate is in the 110 range and he was given metoprolol 25 mg twice a day. He is producing adequate amount of urine output. No other significant events over the past 24 hours. The patient is on anticoagulation with warfarin and Lovenox as bridging therapy. His INR today is at 1.3. Objective - Vital Signs Vital signs: Vital Signs Temp 97.7 F 01/22/17 08:00 Pulse 111 H 01/22/17 08:00 Resp 18 01/22/17 08:00 BP 130/79 01/22/17 08:00 Pulse Ox 97 01/22/17 08:00 Intake & Output 01/21/17 01/22/17 01/22/17 18:59 06:59 18:59 Intake Total 760 850 100 Output Total 300 Balance 760 550 100 Weight 91.3 kg Intake: Oral 760 850 100 Output: Urine 300 Other: Voiding Method Toilet Toilet # Voids 0 1 0 # Bowel Movements 0 0 ABP, PAP, CO, CI - Last Documented Arterial Blood Pressure 91/49 Pulmonary Artery Pressure 15/9 Cardiac Output 4.8 Cardiac Index 2.6 - Exam Head exam was generally normal. There was no scleral icterus or corneal arcus. Mucous membranes were moist.Neck was supple and without jugular venous distension, thyromegaly, or carotid bruits. Carotids were easily palpable bilaterally. There was no adenopathy. Lung sounds are diminished specially in the left lung base otherwise there is no wheezes rhonchi or neck crackles. Heart sounds are regular, tachycardic, there is an aortic valve click heard throughout the precordium. Sternum stable clean and intact.Abdominal exam revealed normal bowel sounds. The abdomen was soft, non-tender, and without masses, organomegaly, or appreciable enlargement of the abdominal aorta.Examination of the extremities revealed easily palpable radial, femoral and pedal pulses. There was no cyanosis, clubbing or edema. - Labs CBC & Chem 7: 01/22/17 05:59 01/22/17 05:59 Labs: Abnormal Lab Results - Last 24 Hours (Table) 01/21/17 01/21/17 01/22/17 Range/Units 12:09 16:55 01:58 RBC (4.30-5.90) m/uL Hgb (13.0-17.5) gm/dL Hct (39.0-53.0) % PT (9.0-12.0) sec POC Glucose (mg/dL) 109 H 107 H 106 H (75-99) mg/dL ALT (21-72) U/L 01/22/17 01/22/17 01/22/17 Range/Units 05:59 05:59 05:59 RBC 2.91 L (4.30-5.90) m/uL Hgb 8.8 L (13.0-17.5) gm/dL Hct 26.8 L (39.0-53.0) % PT 12.4 H (9.0-12.0) sec POC Glucose (mg/dL) (75-99) mg/dL ALT 193 H (21-72) U/L Assessment and Plan Plan: Impression: 1 Severe aortic stenosis with bicuspid aortic valve status post aortic valve replacementutilizing a #23 mm mechanical on X valve bileafletand repair of the ascending aortic aneurysm with supra coronary conduit. Patient is postop day #7 2 Postoperative anemia, stable, status post transfusion with a packed RBC unit and the patient's hemoglobin is up to 8.8 3 postoperative sinus tachycardia, currently on metoprolol 4 mechanical valve requiring long-term anticoagulation. PT/INR is subtherapeutic at this point with an INR of 1.3. 5 postoperative small left-sided pleural effusion, seems on today's chest x-ray and is being monitored. No need Thoracentesis at this point Plan Will encourage ambulation. Use incentive spirometer. Monitor left-sided pleural effusion. Agree with beta blockers to slow down the heart rate. We'll continue to follow. The patient is on anticoagulation and will bring his INR to therapeutic range prior to stopping the Lovenox.
[2017-01-22 11:57] LABS: Glucose,Whole Blood 107 mg/dL (75-99)
[2017-01-22 13:58] VITALS: BP 110/74; PULSE 94; TEMP 96.5
[2017-01-22 14:53] VITALS: BMI 27.3
--- NOTE | 2017-01-22 15:08 | P.DS ---
Providers Date of admission: 01/15/17 05:53 Attending physician: Charlie Guevara Consults: 01/15/17 14:26 Consult Physician Routine Consulting Provider: Deandre Julian Consult Reason/Comments: Strip Catcher Consult: post cardiac surgery Do you want consulting provider notified?: Yes Consult Physician Routine Consulting Provider: John Torres Consult Reason/Comments: Cashier And Salesperson Consult: post cardiac surgery Do you want consulting provider notified?: Yes Primary care physician: Tej Damian - Discharge Diagnosis(es) (1) Severe aortic stenosis Status: Acute (2) Ascending aorta dilatation Status: Resolved (3) Status post mechanical aortic valve replacement Status: Acute Hospital Course: FINAL DIAGNOSIS: 1.[Severe aortic valve stenosis with bicuspid calcified aortic valve] 2.[Moderate dilatation of the ascending aorta at 4.5 cm] 3.[Remote history of tobacco dependence] 4.[History of migraines] PRINCIPAL PROCEDURE: [] 1.[Aortic valve replacement using a 23 mm mechanical On-X valve bileaflet. Repair of ascending aortic aneurysm with a supra-coronary conduit using a 30 mm Hemashield straight graft. Transesophageal echocardiogram and epi-aortic scanning.] HISTORY OF PRESENT ILLNESS: [This 26-year-old male with a history of symptomatic severe aortic valve stenosis with a bicuspid heavily calcified aortic valve had been followed by cardiology. He received a CT scan of the chest and a TEX which showed a normal aortic root, however, there was moderate dilatation of the ascending aorta. Dr. Guevara from cardiothoracic surgery was consulted for valve replacement surgery. Preoperative testing was completed, including a heart catheterization which demonstrated no significant coronary artery disease. An extensive discussion was had with the patient and his , all risks and benefits were explained, and he elected to proceed with surgery.] HOSPITAL COURSE:[This gentleman was brought in as an outpatient on 01/15/17, taken to the preoperative area and prepared for surgery, and taken to the operating room. Dr. Guevara performed an aortic valve replacement using a 23 mm mechanical bileaflet On-X valve, repair of the ascending aortic aneurysm with a supra-coronary conduit using a 30 mm Hemashield straight graft, transesophageal echocardiogram, and epi-aortic scanning. Upon completion of the surgery the patient was subsequently transferred to the cardiovascular intensive care unit where he was recovered, monitored hemodynamically, and where he progressed to cardiac rehabilitation phase 1. He was extubated, all lines, tubes, and drips were discontinued when appropriate, and he was subsequently transferred to [address] [place] [address] for further monitoring and rehabilitation. He did have an episode of acute blood loss anemia requiring transfusion. His oxygen was titrated down, he continued to work with physical therapy, and was ready to be discharged home on postoperative day #7 with [facility] care to follow. As his PTT/INR were therapeutic, he was to be discharged home on Lovenox subcutaneously to bridge until his Coumadin level was therapeutic.] COMPLICATIONS: [The patient's postoperative complication includes acute blood loss anemia requiring transfusion. ] CONSULTATIONS: 1.[Dr. Senait Torres for cardiology] 2.[Dr. Julian for pulmonology] 3.[Dr. Byrne, et. al for medical management] DISCHARGE INSTRUCTIONS: 1. No driving for 4 weeks, or until physician gives their ok. 2. The patient should sleep in their own bed, no medical bed needed. 3. Stairs are not an issue. If the bedroom is upstairs, it is advised that the patient go up at night and down in the morning for the first week. Go slowly, using handrail and take 1 step at a time. 4. GIBRAN hose are to be worn for 30 days or until physician discontinues. 5. Heart hugger is to be worn 100% of the time until physician discontinues.( except when showering) 6. No lifting, pushing, or pulling more than 10 pounds for 12 weeks. The physician will advise of any restriction changes. 7. The patient is expected to continue the prescribed walking program. 8. Continue pain control per as needed orders. 9. Continue with incentive spirometry and splinting/heart hugger until otherwise directed by the physician. 10. Must shower daily using liquid antibacterial soap and a separate white washcloth for each individual incision. 11. Routine sternal incision care. HOME HEALTH SERVICES TO PROVIDE: RN SKILLED HOME CARE SERVICES FOR POST-OP SURGICAL PATIENTS WITH THE FOLLOWING: Aortic Valve Replacement/Repair (AVR) RN TO CONTINUE EDUCATION FROM ``ROAD TO A HEALTH HEART PATIENT EDUCATION MANUAL (GIVEN TO PATIENT IN THE HOSPITAL) MEDICATION RECONCILIATION WITH EDUCATION NEEDED ON FIRST HOME VISIT EMPHASIZE IMPORTANCE OF WEARING HEART HUGGER ENCOURAGE USE OF INCENTIVE SPIROMETER 10 X EVERY HOUR WHILE AWAKE ENCOURAGE UTILIZATION OF LOWER EXTREMITY COMPRESSION STOCKINGS/GIBRAN HOSE and ELEVATE LEGS ABOVE LEVEL OF HEART WHILE AT REST. ENCOURAGE AMBULATION 3-5x/day INCREASING TOLERATES, WHILE AVOID EXTREMES IN TEMPERATURE FREQUENCY: RN TO OPEN THE PATIENT WITHIN 24 HOURS OF DISCHARGE FROM THE HOSPITAL WITH TELEHEALTH INSTALLED AT [facility], RN TO VISIT 2-3 X A WEEK FOR 4 WEEKS ESTABLISHED BY PATIENT NEEDS. REMOVAL OF SUTURES: NURSING SERVICES TO REMOVE SUTURES TWO WEEKS POST SURGICAL DATE [ 01-29-17 ]. If any questions regarding suture removal please call the office at [phone]. LABORATORY: CBC, CMP TO BE DRAWN ON THE THIRD DAY HOME, 01/25/2017 (RAN STAT ) FAX RESULTS TO [phone]. PT/INR TO BE DRAWN ON 01/23/17 AND 01/25/17 WITH RESULTS CALLED /FAXED TO DR. TORRES'S OFFICE TELEHEALTH PARAMETERS: WEIGHT: NOTIFY MD OF WEIGHT GAIN OF 2 LBS IN 24 HOURS OR 5 LBS IN ONE WEEK HR: NOTIFY MD OF HR <55 BPM OR HR>100 BPM BP: NOTIFY MD IF BP <90/55 OR BP>140/100 O2 SAT: NOTIFY MD IF PO2<93% ON ROOM AIR SEND TELEHEALTH REPORT TO FILLER SPREADER AND CARDIOVASCULAR SURGEON THE FIRST WEEK OF CARE AND THEN BI-WEEKLY. PLEASE ADDITIONALLY COMMUNICATE ANY ABNORMALS AND NEW FINDINGS TO THE SURGEONS OFFICE. Plan - Discharge Summary New Discharge Prescriptions: Warfarin [Coumadin] 5 mg PO DAILY@1800 #30 tab Discharge Medication List SUMAtriptan SUCCINATE [Imitrex] 25 mg PO DAILY PRN 01/03/17 [History] Aspirin [Adult Low Dose Aspirin EC] 81 mg PO DAILY 01/15/17 [History] Warfarin [Coumadin] 5 mg PO DAILY@1800 #30 tab 01/22/17 [Rx] Cefuroxime Axetil [Ceftin] 500 mg PO BID #14 tab 01/24/17 [Rx] traMADol HCl [Ultram] 50 - 100 mg PO QID PRN 01/24/17 [History] Metoprolol Tartrate [Lopressor] 50 mg PO BID #60 tab 01/25/17 [Rx] Follow up Appointment(s)/Referral(s): John Torres MD [STAFF PHYSICIAN] - 01/31/17 8:30 am Charlie Guevara MD [STAFF PHYSICIAN] - 02/16/17 11:30 am Tej Damian MD [Primary Care Provider] - 01/25/17 9:30 am Deandre Julian DO [Doctor of Osteopathic Medicine] - 02/12/17 10:15 am [facility], [NON-STAFF] - Ambulatory/Diagnostic Orders: Complete Blood Count w/diff [LAB.AMB] Time Frame: 3 Days, Facility: [facility], Location: Laboratory [facility] Comprehensive Metabolic Panel [LAB.AMB] Time Frame: 3 Days, Facility: [facility], Location: Laboratory [facility] Prothrombin Time INR [LAB.AMB] Time Frame: 3 Days, Facility: [facility] , Location: [facility] Prothrombin Time INR [LAB.AMB] Time Frame: 01/23/17, Facility: [facility], Location: [facility] Patient Instructions/Handouts: Warfarin (By mouth) Activity/Diet/Wound Care/Special Instructions: DISCHARGE INSTRUCTIONS: 1. No driving for 4 weeks, or until physician gives their ok. 2. The patient should sleep in their own bed, no medical bed needed. 3. Stairs are not an issue. If the bedroom is upstairs, it is advised that the patient go up at night and down in the morning for the first week. Go slowly, using handrail and take 1 step at a time. 4. GIBRAN hose are to be worn for 30 days or until physician discontinues. 5. Heart hugger is to be worn 100% of the time until physician discontinues.( except when showering) 6. No lifting, pushing, or pulling more than 10 pounds for 12 weeks. The physician will advise of any restriction changes. 7. The patient is expected to continue the prescribed walking program. 8. Continue pain control per as needed orders. 9. Continue with incentive spirometry and splinting/heart hugger until otherwise directed by the physician. 10. Must shower daily using liquid antibacterial soap and a separate white washcloth for each individual incision. 11. Routine sternal incision care. HOME HEALTH SERVICES TO PROVIDE: RN SKILLED HOME CARE SERVICES FOR POST-OP SURGICAL PATIENTS WITH THE FOLLOWING: Aortic Valve Replacement/Repair (AVR) RN TO CONTINUE EDUCATION FROM ``ROAD TO A HEALTH HEART PATIENT EDUCATION MANUAL (GIVEN TO PATIENT IN THE HOSPITAL) MEDICATION RECONCILIATION WITH EDUCATION NEEDED ON FIRST HOME VISIT EMPHASIZE IMPORTANCE OF WEARING HEART HUGGER ENCOURAGE USE OF INCENTIVE SPIROMETER 10 X EVERY HOUR WHILE AWAKE ENCOURAGE UTILIZATION OF LOWER EXTREMITY COMPRESSION STOCKINGS/GIBRAN HOSE and ELEVATE LEGS ABOVE LEVEL OF HEART WHILE AT REST. ENCOURAGE AMBULATION 3-5x/day INCREASING TOLERATES, WHILE AVOID EXTREMES IN TEMPERATURE FREQUENCY: RN TO OPEN THE PATIENT WITHIN 24 HOURS OF DISCHARGE FROM THE HOSPITAL WITH TELEHEALTH INSTALLED AT [facility], RN TO VISIT 2-3 X A WEEK FOR 4 WEEKS ESTABLISHED BY PATIENT NEEDS. REMOVAL OF SUTURES: NURSING SERVICES TO REMOVE SUTURES TWO WEEKS POST SURGICAL DATE [ 01-29-17 ]. If any questions regarding suture removal please call the office at [phone]. LABORATORY: CBC, CMP TO BE DRAWN ON THE THIRD DAY HOME, 01/25/2017 (RAN STAT ) FAX RESULTS TO [phone]. PT/INR TO BE DRAWN ON 01/23/17 AND 01/25/17 WITH RESULTS CALLED /FAXED TO DR. TORRES'S OFFICE TELEHEALTH PARAMETERS: WEIGHT: NOTIFY MD OF WEIGHT GAIN OF 2 LBS IN 24 HOURS OR 5 LBS IN ONE WEEK HR: NOTIFY MD OF HR <55 BPM OR HR>100 BPM BP: NOTIFY MD IF BP <90/55 OR BP>140/100 O2 SAT: NOTIFY MD IF PO2<93% ON ROOM AIR SEND TELEHEALTH REPORT TO FILLER SPREADER AND CARDIOVASCULAR SURGEON THE FIRST WEEK OF CARE AND THEN BI-WEEKLY. PLEASE ADDITIONALLY COMMUNICATE ANY ABNORMALS AND NEW FINDINGS TO THE SURGEONS OFFICE. Discharge Disposition: HOME WITH HOME HEALTH SERVICES
--- NOTE | 2017-01-22 15:49 | P.PN ---
Subjective Principal diagnosis: Status post aortic valve replacement and repair of aortic aneurysm This is a pleasant 26-year-old gentleman who is status post aortic valve replacement and repair of aortic aneurysm. He was seen and examined today, Overall he's doing well. Working on his incentive spirometry. Ambulating without any difficulty. INR 1.3 today. Patient will be discharged home today. He has a follow-up appointment with Dr. Michael Taveras in the office. Patient will be discharged home on Lovenox 90 mg subcu twice a day. Coumadin 5 mg daily. PT/INR tomorrow and again on Sunday. Objective - Vital Signs Vital signs: Vital Signs Temp 96.5 F L 01/22/17 12:00 Pulse 94 01/22/17 12:00 Resp 18 01/22/17 12:00 BP 110/74 01/22/17 12:00 Pulse Ox 97 01/22/17 12:00 Intake & Output 01/21/17 01/22/17 01/22/17 18:59 06:59 18:59 Intake Total 760 850 100 Output Total 300 Balance 760 550 100 Weight 91.3 kg 91.3 kg Intake: Oral 760 850 100 Output: Urine 300 Other: Voiding Method Toilet Toilet # Voids 0 1 0 # Bowel Movements 0 0 ABP, PAP, CO, CI - Last Documented Arterial Blood Pressure 91/49 Pulmonary Artery Pressure 15/9 Cardiac Output 4.8 Cardiac Index 2.6 - Exam PHYSICAL EXAMINATION: HEENT: Head is atraumatic, normocephalic. Pupils equal, round. Neck is supple. There is no elevated jugular venous pressure. HEART EXAMINATION: Heart S1, S2 normal. No murmur or gallop heard. CHEST EXAMINATION: Lungs are clear to auscultation and precussion. No chest wall tenderness is noted on palpation or with deep breathing. ABDOMEN: Soft, nontender. Bowel sounds are heard. No organomegaly noted. EXTREMITIES: 2+ peripheral pulses with no evidence of peripheral edema and no calf tenderness noted. NEUROLOGIC patient is awake, alert and oriented -3. . - Labs CBC & Chem 7: 01/22/17 05:59 01/22/17 05:59 Labs: Abnormal Lab Results - Last 24 Hours (Table) 01/21/17 01/22/17 01/22/17 Range/Units 16:55 01:58 05:59 RBC 2.91 L (4.30-5.90) m/uL Hgb 8.8 L (13.0-17.5) gm/dL Hct 26.8 L (39.0-53.0) % PT (9.0-12.0) sec POC Glucose (mg/dL) 107 H 106 H (75-99) mg/dL ALT (21-72) U/L 01/22/17 01/22/17 01/22/17 Range/Units 05:59 05:59 11:52 RBC (4.30-5.90) m/uL Hgb (13.0-17.5) gm/dL Hct (39.0-53.0) % PT 12.4 H (9.0-12.0) sec POC Glucose (mg/dL) 107 H (75-99) mg/dL ALT 193 H (21-72) U/L Assessment and Plan (1) S/P repair of abdominal aortic aneurysm using bifurcation graft Status: Acute (2) Tachycardia Status: Acute (3) Status post mechanical aortic valve replacement Status: Acute Plan: Patient will be discharged home today. He does have a follow-up appointment with Dr. Michael Taveras in the office post discharge. He will be discharged with Lovenox 90 mg subcu twice a day, Coumadin 5 mg daily, PT/INR tomorrow and Sunday. DNP note has been reviewed, I agree with a documented findings and plan of care. Patient was seen and examined.
[2017-01-22] MEDS ORDERED: WARFARIN 5 MG TAB PO ONE (18:00)
[2017-01-22] MEDS ORDERED: ENOXAPARIN 100 MG/ML SYRINGE SQ SCH (21:00)
[2017-01-23] MEDS ORDERED: WARFARIN 5 MG TAB PO SCH (18:00)
--- NOTE | 2017-01-24 07:05 | PN ---
DATE OF SERVICE: 01/22/2017 PRESENTING COMPLAINT: Aortic valve surgery. INTERVAL HISTORY: This patient was seen by me yesterday morning on 01/22/2017. Patient is status post aortic valve surgery and ascending aortic aneurysm repair. is at the bedside. Patient has been up in the hallway, ( ). Pain is controlled. Tolerating his diet. Review of systems done for constitutional, cardiovascular, GI, pulmonary; relevant findings as above. Current medications are reviewed. On examination, temperature 97.7, pulse 94, respiration 18, blood pressure 110/74, pulse ox 97% on room air. GENERAL APPEARANCE: Sitting up, comfortable. EYES: Pupils equal. Conjunctivae normal. NECK: JVD not raised. RESPIRATORY: Effort normal. LUNGS: Clear. CARDIOVASCULAR: First and second sounds normal. No edema. ABDOMEN: Soft, nontender. Liver and spleen not palpable. PSYCHIATRY: Alert and oriented x3. Mood and affect normal. INVESTIGATIONS: White count 7.9, hemoglobin 8.8. Potassium 4.2 AST 56, ALT 193. ASSESSMENT: 1. Severe aortic valve stenosis with bicuspid calcified aortic valve and moderate dilatation of the ascending aorta followed by mechanical aortic valve replacement and repair of ascending aneurysm. 2. Acute blood loss anemia as expected from surgery. Patient did get blood transfusion. 3. Sinus tachycardia from anemia, resolved. 4. Coumadin monitoring for therapeutic level for mechanical aortic valve. 5. Hypocalcemia ( ) blood transfusion, improved. 6. Hepatitis, could be ischemic and possibly some element of acetaminophen affect, improved, that is drug induced, improved. 7. Hypoalbuminemia as an acute phase reactant. 8. Hyperglycemia with response distress, improved. 9. Thrombocytopenia, dilutional improved. 10. Left-sided pleural effusion, status post cardiac surgery. PLAN: Overall doing much better. Patient told to follow with his family doctor.
== END 2017-01-22 16:47 | disposition home health service (06) | DRG 219 ==
LOC: 2ORMAIN 05:53 → 6ICU 13:48 → 6SEL 01-17 16:34
PROVIDERS: ADMIT Surgery; ATTEND Surgery
PROC: 02RF0JZ Replacement of Aortic Valve with Synthetic Substitute, Open Approach (ICD-10-PCS; principal; 2017-01-15 08:00)
PROC: B246ZZ4 Ultrasonography of Right and Left Heart, Transesophageal (ICD-10-PCS; principal; 2017-01-15 08:00)
PROC: 5A1221Z Performance of Cardiac Output, Continuous (ICD-10-PCS; principal; 2017-01-15 08:00)
PROC: 04R00JZ Replacement of Abdominal Aorta with Synthetic Substitute, Open Approach (ICD-10-PCS; principal; 2017-01-15 08:00)
DX: I08.0 Rheumatic disorders of both mitral and aortic valves (principal); I49.01 Ventricular fibrillation; J90 Pleural effusion, not elsewhere classified; D69.6 Thrombocytopenia, unspecified; I71.2 Thoracic aortic aneurysm, without rupture; E88.09 Other disorders of plasma-protein metabolism, not elsewhere classified; D62 Acute posthemorrhagic anemia; J98.11 Atelectasis; E83.51 Hypocalcemia; E83.52 Hypercalcemia; D72.829 Elevated white blood cell count, unspecified; E16.2 Hypoglycemia, unspecified; G43.909 Migraine, unspecified, not intractable, without status migrainosus; I77.810 Thoracic aortic ectasia; Z79.01 Long term (current) use of anticoagulants; Z79.82 Long term (current) use of aspirin; Z79.899 Other long term (current) drug therapy; Z87.891 Personal history of nicotine dependence; K71.10 Toxic liver disease with hepatic necrosis, without coma; T39.1X5A Adverse effect of 4-Aminophenol derivatives, initial encounter
CPT/HCPCS: 36415; 36620; 71010; 71020; 76604; 80053; 81003; 82330; 82533; 82550; 82553; 82805; 83036; 83605; 83735; 83880; 84484; 85025; 85027; 85384; 85520; 85610; 85730; 86850; 86891; 86900; 86901; 86920; 87040; 87086; 87502; 88304; 88305; 88311; 93005; 93306; 94002; 94640; 94760; 96365; 96366; 99291

== ENCOUNTER 2017-01-24 01:55 | Inpatient (IN) | payer BC, OTHER ==
[2017-01-24] MEDS ORDERED: ACETAMINOPHEN IV (For NPO) 1,000 MG in EMPTY BAG 1 BAG IVPB STA (02:35)
[2017-01-24] MEDS ORDERED: ONDANSETRON 4 MG/2 ML VIAL IVP STA (02:38)
--- NOTE | 2017-01-24 02:40 | ED ---
General Adult HPI - General Chief complaint: Nausea/Vomiting/Diarrhea Stated complaint: Post OP complications/open heart surgery Time Seen by Provider: 01/24/17 02:20 Source: patient, family, RN notes reviewed Mode of arrival: ambulatory Limitations: no limitations - History of Present Illness Initial comments: Patient is a pleasant 26-year-old male presenting to the emergency Department with complaints of nausea. Patient is postop aortic valve repair, open heart on the sixth of this month. Patient has had a mild cough and has not felt great since yesterday afternoon. Patient vomited last night. Family was checking the heart rate and noticed it to be elevated at 1:30 of around 130. Patient does have some continued nausea. Patient denies palpitations. Patient does not have symptoms of fever or chills or myalgias. Patient admits to having cough that has been since surgery. - Related Data Home Medications Medication Instructions Recorded Confirmed SUMAtriptan SUCCINATE [Imitrex] 25 mg PO DAILY PRN 01/03/17 01/24/17 Aspirin [Adult Low Dose Aspirin EC] 4 tab PO ONCE 01/15/17 01/24/17 Previous Rx's Medication Instructions Recorded Enoxaparin [Lovenox] 90 mg SQ Q12HR #7 syringe 01/22/17 Furosemide [Lasix] 40 mg PO DAILY 3 Days 01/22/17 Metoprolol Tartrate [Lopressor] 25 mg PO BID #60 tab 01/22/17 Potassium Chloride ER [K-Dur 10] 10 meq PO DAILY 3 Days 01/22/17 Warfarin [Coumadin] 5 mg PO DAILY@1800 #30 tab 01/22/17 traMADol HCl [Ultram] 100 mg PO QID PRN #60 tab 01/22/17 Allergies Allergy/AdvReac Type Severity Reaction Status Date / Time No Known Allergies Allergy Verified 01/10/17 11:07 Review of Systems ROS Statement: Those systems with pertinent positive or pertinent negative responses have been documented in the HPI. ROS Other: All systems not noted in ROS Statement are negative. Constitutional: Denies: fever, chills Eyes: Denies: eye pain ENT: Denies: ear pain Respiratory: Reports: cough. Denies: dyspnea Cardiovascular: Denies: chest pain, palpitations Endocrine: Denies: fatigue Gastrointestinal: Reports: nausea. 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 Smoking Status: Former smoker Past Alcohol Use History: Occasional Additional Past Alcohol Use History / Comment(s): quit smoking 2015,smoked approx 2 yrs <1ppd. Past Drug Use History: None Reported - Past Family History Father History Unknown: Yes Family Medical History: No Reported History Additional Family Medical History / Comment(s): Father is healthy and in his 50' s Mother History Unknown: Yes Family Medical History: No Reported History Additional Family Medical History / Comment(s): Mother is healthy and in her 50' s. General Exam Limitations: no limitations General appearance: alert, in no apparent distress Head exam: Present: atraumatic Eye exam: Present: normal appearance, PERRL ENT exam: Present: normal exam, normal oropharynx Neck exam: Present: normal inspection. Absent: meningismus Respiratory exam: Present: normal lung sounds bilaterally, other (Chest incision clean and dry and intact) Cardiovascular Exam: Present: tachycardia GI/Abdominal exam: Present: soft. Absent: distended, tenderness, guarding Extremities exam: Present: normal inspection. Absent: pedal edema, calf tenderness Neurological exam: Present: alert Psychiatric exam: Present: normal affect, normal mood Skin exam: Absent: rash Course Vital Signs 01/24/17 01/24/17 01/24/17 01:58 03:30 04:17 Temperature 100.7 F H 98.9 F Pulse Rate 142 H 133 H 119 H Respiratory 20 16 18 Rate Blood Pressure 134/78 131/74 131/74 O2 Sat by Pulse 93 L 95 95 Oximetry 01/24/17 05:31 Temperature Pulse Rate 117 H Respiratory 169 H Rate Blood Pressure 124/74 O2 Sat by Pulse 97 Oximetry EKG Findings - EKG Comments: EKG Findings:: Sinus tachycardia 138. Normal intervals. Normal axis. Normal QRS. T wave inversion lead V6. Medical Decision Making - Medical Decision Making Patient reevaluated in updated. Heart rate has improved to 117. Patient is resting more comfortably. Patient does meet sepsis criteria. Patient will be treated for pneumonia with antibiotics. Patient and family were were updated. Case was discussed in detail with patient's prior thoracic surgeon, Dr. soares who recommends admission to observation to medicine and antibiotics and cardiology consult. - Lab Data Result diagrams: 01/24/17 02:20 01/24/17 02:20 Lab Results 01/24/17 01/24/17 01/24/17 Range/Units 02:20 02:20 02:20 WBC 12.8 H (3.8-10.6) k/uL RBC 3.68 L (4.30-5.90) m/uL Hgb 10.5 L (13.0-17.5) gm/dL Hct 33.1 L (39.0-53.0) % MCV 89.8 (80.0-100.0) fL MCH 28.5 (25.0-35.0) pg MCHC 31.7 (31.0-37.0) g/dL RDW 14.7 (11.5-15.5) % Plt Count 621 H (150-450) k/uL Neutrophils % 90 % Lymphocytes % 4 % Monocytes % 4 % Eosinophils % 1 % Basophils % 0 % Neutrophils # 11.5 H (1.3-7.7) k/uL Lymphocytes # 0.5 L (1.0-4.8) k/uL Monocytes # 0.5 (0-1.0) k/uL Eosinophils # 0.1 (0-0.7) k/uL Basophils # 0.0 (0-0.2) k/uL Hypochromasia Slight Poikilocytosis Moderate PT (9.0-12.0) sec INR (<1.1) APTT (22.0-30.0) sec Sodium 137 (137-145) mmol/L Potassium 4.4 (3.5-5.1) mmol/L Chloride 100 (98-107) mmol/L Carbon Dioxide 22 (22-30) mmol/L Anion Gap 15 mmol/L BUN 14 (9-20) mg/dL Creatinine 0.70 (0.66-1.25) mg/dL Est GFR (MDRD) Af Amer >60 (>60 ml/min/1.73 sqM) Est GFR (MDRD) Non-Af >60 (>60 ml/min/1.73 sqM) Glucose 113 H (74-99) mg/dL Plasma Lactic Acid Ramon (0.7-2.0) mmol/L Calcium 9.2 (8.4-10.2) mg/dL Total Bilirubin 1.4 H (0.2-1.3) mg/dL AST 60 H (17-59) U/L ALT 159 H (21-72) U/L Alkaline Phosphatase 66 (38-126) U/L Total Creatine Kinase 64 (55-170) U/L CK-MB (CK-2) 0.4 (0.0-2.4) ng/mL CK-MB (CK-2) Rel Index 0.6 Troponin I 0.159 H* (0.000-0.034) ng/mL NT-Pro-B Natriuret Pep pg/mL Total Protein 6.7 (6.3-8.2) g/dL Albumin 4.1 (3.5-5.0) g/dL Cortisol 31 ug/dL Urine Color Urine Appearance (Clear) Urine pH (5.0-8.0) Ur Specific [place] (1.001-1.035) Urine Protein (Negative) Urine Glucose (UA) (Negative) Urine Ketones (Negative) Urine Blood (Negative) Urine Nitrate (Negative) Urine Bilirubin (Negative) Urine Urobilinogen (<2.0) mg/dL Ur Leukocyte Esterase (Negative) Influenza Type A RNA (Not Detectd) Influenza Type B (PCR) (Not Detectd) 01/24/17 01/24/17 01/24/17 Range/Units 02:20 02:20 02:20 WBC (3.8-10.6) k/uL RBC (4.30-5.90) m/uL Hgb (13.0-17.5) gm/dL Hct (39.0-53.0) % MCV (80.0-100.0) fL MCH (25.0-35.0) pg MCHC (31.0-37.0) g/dL RDW (11.5-15.5) % Plt Count (150-450) k/uL Neutrophils % % Lymphocytes % % Monocytes % % Eosinophils % % Basophils % % Neutrophils # (1.3-7.7) k/uL Lymphocytes # (1.0-4.8) k/uL Monocytes # (0-1.0) k/uL Eosinophils # (0-0.7) k/uL Basophils # (0-0.2) k/uL Hypochromasia Poikilocytosis PT 16.5 H (9.0-12.0) sec INR 1.7 (<1.1) APTT 29.7 (22.0-30.0) sec Sodium (137-145) mmol/L Potassium (3.5-5.1) mmol/L Chloride (98-107) mmol/L Carbon Dioxide (22-30) mmol/L Anion Gap mmol/L BUN (9-20) mg/dL Creatinine (0.66-1.25) mg/dL Est GFR (MDRD) Af Amer (>60 ml/min/1.73 sqM) Est GFR (MDRD) Non-Af (>60 ml/min/1.73 sqM) Glucose (74-99) mg/dL Plasma Lactic Acid Ramon 0.8 (0.7-2.0) mmol/L Calcium (8.4-10.2) mg/dL Total Bilirubin (0.2-1.3) mg/dL AST (17-59) U/L ALT (21-72) U/L Alkaline Phosphatase (38-126) U/L Total Creatine Kinase (55-170) U/L CK-MB (CK-2) (0.0-2.4) ng/mL CK-MB (CK-2) Rel Index Troponin I (0.000-0.034) ng/mL NT-Pro-B Natriuret Pep pg/mL Total Protein (6.3-8.2) g/dL Albumin (3.5-5.0) g/dL Cortisol ug/dL Urine Color Urine Appearance (Clear) Urine pH (5.0-8.0) Ur Specific [place] (1.001-1.035) Urine Protein (Negative) Urine Glucose (UA) (Negative) Urine Ketones (Negative) Urine Blood (Negative) Urine Nitrate (Negative) Urine Bilirubin (Negative) Urine Urobilinogen (<2.0) mg/dL Ur Leukocyte Esterase (Negative) Influenza Type A RNA Not Detected (Not Detectd) Influenza Type B (PCR) Not Detected (Not Detectd) 01/24/17 01/24/17 Range/Units 02:20 05:00 WBC (3.8-10.6) k/uL RBC (4.30-5.90) m/uL Hgb (13.0-17.5) gm/dL Hct (39.0-53.0) % MCV (80.0-100.0) fL MCH (25.0-35.0) pg MCHC (31.0-37.0) g/dL RDW (11.5-15.5) % Plt Count (150-450) k/uL Neutrophils % % Lymphocytes % % Monocytes % % Eosinophils % % Basophils % % Neutrophils # (1.3-7.7) k/uL Lymphocytes # (1.0-4.8) k/uL Monocytes # (0-1.0) k/uL Eosinophils # (0-0.7) k/uL Basophils # (0-0.2) k/uL Hypochromasia Poikilocytosis PT (9.0-12.0) sec INR (<1.1) APTT (22.0-30.0) sec Sodium (137-145) mmol/L Potassium (3.5-5.1) mmol/L Chloride (98-107) mmol/L Carbon Dioxide (22-30) mmol/L Anion Gap mmol/L BUN (9-20) mg/dL Creatinine (0.66-1.25) mg/dL Est GFR (MDRD) Af Amer (>60 ml/min/1.73 sqM) Est GFR (MDRD) Non-Af (>60 ml/min/1.73 sqM) Glucose (74-99) mg/dL Plasma Lactic Acid Ramon (0.7-2.0) mmol/L Calcium (8.4-10.2) mg/dL Total Bilirubin (0.2-1.3) mg/dL AST (17-59) U/L ALT (21-72) U/L Alkaline Phosphatase (38-126) U/L Total Creatine Kinase (55-170) U/L CK-MB (CK-2) (0.0-2.4) ng/mL CK-MB (CK-2) Rel Index Troponin I (0.000-0.034) ng/mL NT-Pro-B Natriuret Pep 1200 pg/mL Total Protein (6.3-8.2) g/dL Albumin (3.5-5.0) g/dL Cortisol ug/dL Urine Color Yellow Urine Appearance Clear (Clear) Urine pH 6.0 (5.0-8.0) Ur Specific [place] 1.030 (1.001-1.035) Urine Protein Trace H (Negative) Urine Glucose (UA) Negative (Negative) Urine Ketones 2+ H (Negative) Urine Blood Negative (Negative) Urine Nitrate Negative (Negative) Urine Bilirubin 1+ H (Negative) Urine Urobilinogen 6.0 (<2.0) mg/dL Ur Leukocyte Esterase Negative (Negative) Influenza Type A RNA (Not Detectd) Influenza Type B (PCR) (Not Detectd) - Radiology Data Radiology results: image reviewed (Chest x-ray does show postoperative change. There is bilateral effusions, left is greater. Patchy bilateral edema or pneumonia/atelectasis.) Critical Care Time Critical Care Time: Yes Total Critical Care Time: 32 Disposition Clinical Impression: Pneumonia, Sepsis Disposition: ADMITTED IP TO THIS HOSP
[2017-01-24 02:56] LABS: Basophils % (A) 0 %; CH 29.9; CHCM 33.5; Eosinophils # (A) 0.1 k/uL (0-0.7); Eosinophils % (A) 1 %; HCT 33.1 % (39.0-53.0); HDW 4.34; HGB 10.5 gm/dL (13.0-17.5); Hypochromasia Slight; Luc # (Auto) 0.15; Luc % (Auto) 1; Lymphocytes # (A) 0.5 k/uL (1.0-4.8); Lymphocytes % (A) 4 %; MCH 28.5 pg (25.0-35.0); MCHC 31.7 g/dL (31.0-37.0); MCV 89.8 fL (80.0-100.0); Monocytes # (A) 0.5 k/uL (0-1.0); Monocytes % (A) 4 %; Neutrophils # (A) 11.5 k/uL (1.3-7.7); Neutrophils % (A) 90 %; Poikilocytosis Moderate; RBC 3.68 m/uL (4.30-5.90); RDW 14.7 % (11.5-15.5); WBC 12.8 k/uL (3.8-10.6); WBC (Perox) 12.63
[2017-01-24 03:04] LABS: ALT 159 U/L (21-72); AST 60 U/L (17-59); Alkaline Phosphatase 66 U/L (38-126); Anion Gap 15 mmol/L; Blood Urea Nitrogen 14 mg/dL (9-20); Calcium 9.2 mg/dL (8.4-10.2); Carbon Dioxide 22 mmol/L (22-30); Chloride 100 mmol/L (98-107); Glucose 113 mg/dL (74-99); Non-African American GFR(MDRD) >60 (>60 ml/min/1.73 sqM); Potassium 4.4 mmol/L (3.5-5.1); Sodium 137 mmol/L (137-145); Total Bilirubin 1.4 mg/dL (0.2-1.3); Total Protein 6.7 g/dL (6.3-8.2)
[2017-01-24 03:07] LABS: INR 1.7 (<1.1); Partial Thromboplastin Time 29.7 sec (22.0-30.0); Prothrombin Time 16.5 sec (9.0-12.0)
[2017-01-24 03:28] LABS: Creatine Kinase MB 0.4 ng/mL (0.0-2.4); Troponin I 0.159 ng/mL (0.000-0.034)
--- NOTE | 2017-01-24 03:36 | XR ---
EXAM: XR Chest, 2 Views. CLINICAL HISTORY: Reason: Fever TECHNIQUE: Frontal and lateral views of the chest. COMPARISON: Chest x-ray 01/22/17 FINDINGS: Lungs: Patchy bilateral edema and/or pneumonia/atelectasis. Pleural space: Bilateral pleural effusions, left greater than right. Left apical pneumothorax not appreciated on this exam. Heart: Large cardiac silhouette and surgical changes. Mediastinum: Unremarkable. Bones/joints: No acute fracture. IMPRESSION: 1. Bilateral pleural effusions, left greater than right. 2. Patchy bilateral edema and/or pneumonia/atelectasis.
[2017-01-24] MEDS ORDERED: PIPERACILLIN-TAZOBACTAM 3.375 GM in DEXTROSE/WATER 1 50ML.BAG IVPB STA (03:59)
[2017-01-24 05:09] LABS: Appearance,Urine Clear (Clear); Bilirubin,Urine 1+ (Negative); Glucose,Urine (UA) Negative (Negative); Ketones,Urine 2+ (Negative); Leukocyte Esterase,Urine Negative (Negative); Nitrite,Urine Negative (Negative); Protein,Urine Trace (Negative); UA Billing (MACRO vs. MICRO) CHEM
[2017-01-24] MEDS ORDERED: PNEUMONIA PROTOCOL UTILIZED 1 EACH MISC PO PRN (05:35)
[2017-01-24] MEDS ORDERED: LEVOFLOXACIN 750MG-D5W PMX 750 MG in DEXTROSE/WATER 1 150ML.BAG IVPB STA (05:35)
[2017-01-24] MEDS ORDERED: METOCLOPRAMIDE 5 MG/ML 2 ML VIAL IVP PRN (05:37)
[2017-01-24 06:35] VITALS: BMI 25.5
[2017-01-24] MEDS ORDERED: SUMAtriptan SUCCINATE 25 MG TAB PO PRN (08:15)
[2017-01-24] MEDS ORDERED: traMADol 50 MG TAB PO PRN (08:15)
[2017-01-24] MEDS ORDERED: POTASSIUM CHLORIDE ER 10 MEQ TAB.ER.PRT PO SCH (09:00)
[2017-01-24] MEDS ORDERED: FUROSEMIDE 40 MG TAB PO SCH (09:00)
[2017-01-24] MEDS ORDERED: METOPROLOL TARTRATE 25 MG TAB PO SCH (09:00)
[2017-01-24 09:45] LABS: Creatine Kinase MB 0.4 ng/mL (0.0-2.4)
[2017-01-24 09:51] LABS: Troponin I 0.156 ng/mL (0.000-0.034)
[2017-01-24] MEDS: METOPROLOL TARTRATE 50 MG TAB PO SCH ×2 (10:00→22:16)
[2017-01-24] MEDS: ASPIRIN 81 MG CHEW PO SCH (10:00)
[2017-01-24] MEDS: ENOXAPARIN 100 MG/ML SYRINGE SQ SCH ×2 (10:00→22:16)
--- NOTE | 2017-01-24 10:19 | P.CRDCN ---
History of Present Illness Consult date: 01/24/17 Requesting physician: Duncan Raymundo Reason for Consult (text): Tachycardia Chief complaint: Nausea History of present illness: This pleasant 26-year-old gentleman who recently underwent aortic valve replacement using a 23 mm mechanical On-X valve bileaflet, as well as repair of ascending aortic aneurysm. The patient was just discharged home on the 13 of this month, he states he's been feeling fairly well overall. He has had a persistent cough, last night patient became nauseated, his checked his blood pressure and heart rate. Heart rate was noted to be in the 130 range, and patient was brought back to the hospital for further evaluation. He denies any chest discomfort, states overall that his breathing is stable, no palpitations. Blood pressure 134/78 on admission, heart rate 142, temperature 100.7, 93% on room air. Blood pressure this morning 140/70 with a heart rate of 130, respirations 18. 97% on room air. Laboratory data, WBC 12.8 , hemoglobin 10.5, INR 1.7, sodium 137, potassium 4.4, BUN 14, creatinine 0.7. BNP level 1200. Troponin 0.15, 0.15. Chest x-ray reveals bilateral pleural effusions and left greater than the right. Patchy bilateral edema and/or pneumonia. EKG shows a sinus tachycardia nonspecific ST-T wave changes. My examination this morning, patient denies any nausea, denies palpitations or difficulty in breathing. 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 Smoking Status: Former smoker Past Alcohol Use History: Occasional Additional Past Alcohol Use History / Comment(s): quit smoking 2015,smoked approx 2 yrs <1ppd. Past Drug Use History: None Reported - Past Family History Father History Unknown: Yes Family Medical History: No Reported History Additional Family Medical History / Comment(s): Father is healthy and in his 50' s Mother History Unknown: Yes Family Medical History: No Reported History Additional Family Medical History / Comment(s): Mother is healthy and in her 50' s. Medications and Allergies Home Medications Medication Instructions Recorded Confirmed Type SUMAtriptan SUCCINATE [Imitrex] 25 mg PO DAILY PRN 01/03/17 01/24/17 History Aspirin [Adult Low Dose Aspirin EC] 81 mg PO DAILY 01/15/17 01/24/17 History Enoxaparin [Lovenox] 90 mg SQ Q12HR 01/24/17 01/24/17 History traMADol HCl [Ultram] 50 - 100 mg PO QID PRN 01/24/17 01/24/17 History Allergies Allergy/AdvReac Type Severity Reaction Status Date / Time No Known Allergies Allergy Verified 01/24/17 07:57 Physical Exam Vitals: Vital Signs Temp Pulse Pulse Resp BP BP Pulse Ox 01/24/17 06:05 97.3 F L 121 H 18 140/73 97 01/24/17 05:48 97.9 F 115 H 16 124/74 97 Intake and Output 01/23/17 01/24/17 01/24/17 22:59 06:59 14:59 Intake Total 360 Balance 360 Intake: Oral 360 Other: Weight 85.5 kg PHYSICAL EXAMINATION: HEENT: Head is atraumatic, normocephalic. Pupils equal, round. Neck is supple. There is no elevated jugular venous pressure. HEART EXAMINATION: Heart S1 and S2 aortic valve click is heard CHEST EXAMINATION: Lungs are clear with diminished air entry bilaterally, left greater than the right. ABDOMEN: Soft, nontender. Bowel sounds are heard. No organomegaly noted. EXTREMITIES: 2+ peripheral pulses with no evidence of peripheral edema and no calf tenderness noted. NEUROLOGIC patient is awake, alert and oriented -3. . Results 01/24/17 02:20 01/24/17 02:20 Cardiac Enzymes 01/24/17 Range/Units 08:51 CK-MB (CK-2) 0.4 (0.0-2.4) ng/mL Troponin I 0.156 H* (0.000-0.034) ng/mL Current Medications Generic Name Dose Route Start Last Admin Trade Name Freq PRN Reason Stop Dose Admin Aspirin 81 mg 01/24/17 09:00 Aspirin PO DAILY ROSALIND Enoxaparin Sodium 90 mg 01/24/17 09:00 Lovenox SQ Q12HR ROSALIND Levofloxacin 750 mg/ IV 150 mls @ 100 mls/hr 01/25/17 06:00 Solution IVPB 02/06/17 06:01 Q24H ROSALIND Piperacillin/Tazobactam/ 50 mls @ 12.5 mls/hr 01/24/17 16:00 Dextrose 3.375 gm/ IV Solution IVPB 02/03/17 16:01 Q8HR ROSALIND Metoclopramide HCl 5 mg 01/24/17 05:37 Reglan IVP Q6HR PRN Nausea And Vomiting Metoprolol Tartrate 50 mg 01/24/17 09:30 Lopressor PO BID [facility] Miscellaneous Information 1 each 01/24/17 05:35 Pneumonia Protocol Utilized PO ONCE PRN Per Protocol Sodium Chloride 10 ml 01/24/17 09:00 Saline Flush IV BID [facility] Sumatriptan Succinate 25 mg 01/24/17 08:15 Imitrex PO DAILY PRN Migraine Headache Tramadol HCl 100 mg 01/24/17 08:15 Ultram PO QID PRN Pain Warfarin Sodium 7.5 mg 01/24/17 18:00 Coumadin PO 01/24/17 18:01 ONCE@1800 ONE Intake and Output 01/23/17 01/24/17 01/24/17 22:59 06:59 14:59 Intake Total 360 Balance 360 Intake: Oral 360 Other: Weight 85.5 kg EKG Interpretations (text) EKG shows a sinus tachycardia with a heart rate of 138. Assessment and Plan Plan: Assessment and plan #1 symptoms of nausea with associated elevated temperature and elevated white blood cell count. Patient currently on IV Antibiotics. Chest x-ray reveals bilateral pleural effusions, left greater than right, possible infiltrate. #2 sinus tachycardia, heart rate in the 130s to 140s. Likely secondary to infection. #3 recent aortic valve replacement with mechanical aortic valve. Plan Beta margarette has been increased to 50 mg one tablet by mouth twice a day, INR on admission 1.7, patient has been given 7-1/2 mg of Coumadin. He is currently on IV antibiotics we need to monitor INR closely. Further recommendations to follow. DNP note has been reviewed, I agree with a documented findings and plan of care. Patient was seen and examined.
--- NOTE | 2017-01-24 11:23 | US ---
EXAMINATION TYPE: US chest DATE OF EXAM: 01/24/2017 11:16 AM COMPARISON: X-ray in pacs CLINICAL HISTORY: left chest to eval pleural effusion. EXAM MEASUREMENTS: Left Pleural Effusion fluid pocket: 3.7 cm Left skin to fluid thickness: 3.1 cm Left side marked for possible thoracentesis outside the dept. Pulmonologists are able to review the images in the patient?s EMR. IMPRESSIONS: 1. Small left pleural effusion.
--- NOTE | 2017-01-24 12:15 | P.GSCN ---
History of Present Illness Consult date: 01/24/17 Reason for Consult: Recent discharge after coronary artery bypass graft surgery. Requesting physician: German Okeefe History of present illness: This 26-year-old male who had previously been discharged on January 22 after aortic valve replacement and repair of ascending aortic aneurysm , apparently had an episode of nausea and emesis last night. Initially he attributed this to his dinner and felt that maybe he had eaten too much. Subsequently his take his heart rate and blood pressure. His heart rate was in the low 100s-130s, his systolic blood pressure was in the 130s-140s. He generally did not feel well, had a low grade temp of 99F, and was concerned for infection. He denied chest pain, shortness of breath. Dr. Guevara from cardiothoracic surgery was consulted as this patient is well-known to us and of course we are concerned for any infection possibility especially in light of the recently placed mechanical aortic valve. Review of Systems 14 point review of systems was completed and was negative except as noted. - Constitutional Reports as per HPI - Cardiovascular Reports as per HPI - Gastrointestinal Reports as per HPI Past Medical History Additional Past Medical History / Comment(s): Born with bicupsid-aortic valve so has murmur, migraines History of Any Multi-Drug Resistant Organisms: None Reported Past Surgical History: Heart Catheterization, Hernia Repair Additional Past Surgical History / Comment(s): bilateral inguinal hernia repairs as infant, mechanical aortic valve replacement and ascending aorta repair Past Anesthesia/Blood Transfusion Reactions: No Reported Reaction Additional Past Anesthesia/Blood Transfusion Reaction / Comm: no hx blood transfusion Past Psychological History: No Psychological Hx Reported Additional Psychological History / Comment(s): . Smoking Status: Former smoker Past Alcohol Use History: Occasional Additional Past Alcohol Use History / Comment(s): quit smoking 2015,smoked approx 2 yrs <1ppd. Past Drug Use History: None Reported - Past Family History Father History Unknown: Yes Family Medical History: No Reported History Additional Family Medical History / Comment(s): Father is healthy and in his 50' s Mother History Unknown: Yes Family Medical History: No Reported History Additional Family Medical History / Comment(s): Mother is healthy and in her 50' s. Medications and Allergies Home Medications Medication Instructions Recorded Confirmed Type SUMAtriptan SUCCINATE [Imitrex] 25 mg PO DAILY PRN 01/03/17 01/24/17 History Aspirin [Adult Low Dose Aspirin EC] 81 mg PO DAILY 01/15/17 01/24/17 History Enoxaparin [Lovenox] 90 mg SQ Q12HR 01/24/17 01/24/17 History traMADol HCl [Ultram] 50 - 100 mg PO QID PRN 01/24/17 01/24/17 History Allergies Allergy/AdvReac Type Severity Reaction Status Date / Time No Known Allergies Allergy Verified 01/24/17 07:57 Surgical - Exam Vital Signs Temp Pulse Resp BP Pulse Ox 100.7 F H 142 H 20 134/78 93 L 01/24/17 01:58 01/24/17 01:58 01/24/17 01:58 01/24/17 01:58 01/24/17 01:58 - General well developed, well nourished, no distress - Eyes PERRL, normal ocular movement - Neck no masses, trachea midline - Respiratory Lungs sounds diminished, more so on the left. Respirations even, nonlabored. Currently on room air. - Cardiovascular S1, S2 present. Tachycardia rate, regular rhythm, sinus tach on telemetry. Chest stable. Heart hugger in place with patient demonstrating appropriate use. No edema present. - Abdomen Abdomen: soft, non tender, bowel sounds - Genitourinary Voiding clear, yellow urine. - Integumentary Anterior chest incision well approximated. Chest tube sites well approximated with intact sutures. - Neurologic normal coordination, normal sensation - Musculoskeletal normal gait - Psychiatric oriented to time, oriented to person, oriented to place, speech is normal, memory intact Results - Labs 01/24/17 02:20 01/24/17 02:20 Abnormal Lab Results - Last 24 Hours (Table) 01/24/17 Range/Units 08:51 Troponin I 0.156 H* (0.000-0.034) ng/mL - Imaging Chest x-ray: report reviewed, image reviewed EKG: image reviewed Assessment and Plan (1) Status post mechanical aortic valve replacement Status: Acute (2) S/P repair of abdominal aortic aneurysm using bifurcation graft Status: Acute (3) Tachycardia Status: Acute Plan: 1. Continue aspirin, Lovenox. 2. Will increase Lopressor to 50 mg by mouth twice a day. 3. Will stop Lasix, K-Dur. 4. Will give Coumadin 7.5 mg by mouth today as INR is 1.7. 5. Patient started on Levaquin and Zosyn by ER physician. Will defer to Dr. Palencia judgment on antibiotics. 6. Will obtain ultrasound of the left chest to evaluate size of pleural effusion for possible thoracentesis. 7. Will monitor and make more recommendations as patient progresses. 8. Hopefully will discharge home soon. Time with Patient: Greater than 30
--- NOTE | 2017-01-24 12:16 | HP ---
DATE OF ADMISSION: 01/24/2017 PRESENTING COMPLAINT: Not feeling well. HISTORY OF PRESENTING COMPLAINT: This is a pleasant 26-year-old patient who was in the hospital from 01/15/2017 and was discharged on 01/22/2017. 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 During last hospitalization, patient did get blood transfusion and was discharged on Coumadin. LFTs are up the last admission, a combination from ischemic hepatitis and may be acetaminophen and numbers had come down nicely. Patient did leave with a small left-sided pleural effusion, but clinically patient is doing much better, up and about. Pulse oxing well. Last night, patient's made a dinner and patient thinks he ate much more than his usual amount he has been used to eating. Second to that, patient just did not feel well, felt a bit james in color. took the temperature, it was 99.8. Blood pressure was about 140 systolic, tachycardic and decided to bring the patient to the hospital. In the ER, patient had a temperature 100.7 and pulse was 142. Patient denies any cough. Patient is having 1 or 2 soft bowel movements. No abdominal pain. The patient's incision site looks well and patient actually feels better after he got some Tylenol and Zofran in the ER. REVIEW OF SYSTEMS: CONSTITUTIONAL: Tired. HEENT: None. RESPIRATORY: As above. CARDIOVASCULAR: None. GASTROINTESTINAL: As above. GENITOURINARY: None. MUSCULOSKELETAL: None. DERMATOLOGICAL: As above. LYMPHATICS: None. PSYCHIATRY: None. NEUROLOGICAL: None. PAST MEDICAL HISTORY: Bicuspid aortic valve, migraines. PAST SURGICAL HISTORY: Mechanical aortic valve replacement with ascending aorta aneurysm dilatation repair, bilateral inguinal hernia repair. SOCIAL HISTORY: Patient is , does not smoke. Alcohol occasionally, employed. FAMILY HISTORY: Reviewed; noncontributory to presentation. HOME MEDICATIONS: 1. Ultram 50 to 100 mg q.i.d. p.r.n. 2. Coumadin 5 mg daily. 3. Potassium 10 mEq p.o. daily. 4. Lopressor 25 mg p.o. b.i.d. 5. Lasix 40 mg p.o. daily. 6. Lovenox 90 mg subQ q.12. 7. Aspirin 81 mg daily. 8. Imitrex 25 mg p.o. daily p.r.n. ALLERGIES: None. On examination: GENERAL APPEARANCE: Sitting up, comfortable. EYES: Pupils equal. Conjunctivae normal. HEENT: Oral cavity normal. NECK: JVD not raised. Mass not palpable. Respiratory effort normal. LUNGS: Slightly decreased breath sounds at the left base. CARDIOVASCULAR: First and second sounds normal. No edema. ABDOMEN: Soft, nontender. Liver and spleen not palpable. LYMPHATIC: No lymph node palpable in neck or axillae. PSYCHIATRY: Alert and oriented x3. Mood and affect normal. NEUROLOGICAL: Pupils equal. Cranial nerves grossly intact. Power and sensation grossly intact. INVESTIGATIONS: White count 12.8, it was up from 7.9 on 01/22/2017, hemoglobin 10.5, platelets 621, INR 1.7, potassium 4.4. UA unremarkable. Chest x-ray some slight infiltrate on the right side. ASSESSMENT: 1. Patient has a low grade fever, some tachycardia, questionable infiltrate on the right side. The white count has gone up from last admission. Suspicion for pneumonia is there. 2. Coumadin monitoring for therapeutic level. 3. Small left pleural effusion post cardiac surgery. 4. Acute postoperative blood loss anemia as expected from surgery, stable. 5. Reactive thrombocytosis. PLAN: Patient was put on Levaquin and Zosyn. Home medications are resumed. Coumadin will be followed. Will get an ID opinion given the valve is present and a courtesy consult to Cardiothoracic Surgery. Care was discussed with the patient and .
--- NOTE | 2017-01-24 15:24 | P.CONS ---
History of Present Illness - Reason for Consult Consult date: 01/24/17 Pneumonia/atelectasis - History of Present Illness this is a 26-year-old male. He was recently hospitalized due to history of severe aortic valve stenosis with bicuspid valve and moderate dilated ascending aorta at 4.5 cm. Patient underwent replacement of the aortic valve with a mechanical valve and repair of the ascending aorta on January 12. He was discharged home on January 22. He had an uncomplicated postop.. Patient does state that he received 2 units of blood during his stay. Patient was discharged home and he denies having any concerns at the time. He had dinner last night which was chicken, peppers and rice and ended up feeling nauseated and vomited 1. His is keeping track of his blood pressure which was then elevated and his heart rate was greater than 1:30 and temperature 99.6. Patient does have a history of chronic tachycardia. He also has had some loose stools which she states is due to stool softeners but are firming. He denies any watery stools. He complains of a scratchy throat with a cough from the scratchiness. He denies any shortness of breath. Patient presented to [facility] emergency center where he was found to have a temperature 100.7, white count 12.8, total bilirubin was 1.4, AST 60, ALT 159. BNP was 1200. Troponin was 0.159. Albumin 4.1. Influenza testing A and B negative. patient was started on Levaquin and Zosyn and admitted to the selective care unit where he has been seen by cardiology and cardiothoracic surgery. His chest x-ray showed bilateral pleural effusions left greater than right with patchy bilateral edema and or pneumonia or atelectasis. Patient states he ate his breakfast this morning. He has had no further episodes of nausea or vomiting. He denies dysphagia. He denies fever, chills. he denies abdominal pain. He states that he is feeling the best that he has since his open heart surgery. Review of Systems All systems: negative Constitutional: Reports fever, Denies chills Eyes: denies blurred vision, denies pain Ears, nose, mouth and throat: Denies headache, Denies sore throat Cardiovascular: Denies chest pain, Denies shortness of breath Respiratory: Denies cough Gastrointestinal: Reports nausea, Reports vomiting, Denies abdominal pain, Denies diarrhea Musculoskeletal: Denies myalgias Integumentary: Denies pruritus, Denies rash Neurological: Denies numbness, Denies weakness Psychiatric: Denies anxiety, Denies depression Endocrine: Denies fatigue, Denies weight change Past Medical History Additional Past Medical History / Comment(s): Born with bicupsid-aortic valve so has murmur, migraines History of Any Multi-Drug Resistant Organisms: None Reported Past Surgical History: Coronary Bypass/CABG, Heart Catheterization, Hernia Repair Additional Past Surgical History / Comment(s): bilateral inguinal hernia repairs as , aortic valve replacement and ascending aorta repair Past Anesthesia/Blood Transfusion Reactions: No Reported Reaction Additional Past Anesthesia/Blood Transfusion Reaction / Comm: no hx blood transfusion Past Psychological History: No Psychological Hx Reported Additional Psychological History / Comment(s): . Smoking Status: Former smoker Past Alcohol Use History: Occasional Additional Past Alcohol Use History / Comment(s): quit smoking 2015,smoked approx 2 yrs <1ppd. Past Drug Use History: None Reported - Past Family History Father History Unknown: Yes Family Medical History: No Reported History Additional Family Medical History / Comment(s): Father is healthy and in his 50' s Mother History Unknown: Yes Family Medical History: No Reported History Additional Family Medical History / Comment(s): Mother is healthy and in her 50' s. Medications and Allergies Home Medications Medication Instructions Recorded Confirmed Type SUMAtriptan SUCCINATE [Imitrex] 25 mg PO DAILY PRN 01/03/17 01/24/17 History Aspirin [Adult Low Dose Aspirin EC] 81 mg PO DAILY 01/15/17 01/24/17 History Enoxaparin [Lovenox] 90 mg SQ Q12HR 01/24/17 01/24/17 History traMADol HCl [Ultram] 50 - 100 mg PO QID PRN 01/24/17 01/24/17 History Allergies Allergy/AdvReac Type Severity Reaction Status Date / Time No Known Allergies Allergy Verified 01/24/17 07:57 Physical Exam Vitals: Vital Signs Temp Pulse Pulse Resp BP BP Pulse Ox 01/24/17 06:05 97.3 F L 121 H 18 140/73 97 01/24/17 05:48 97.9 F 115 H 16 124/74 97 Intake and Output 01/23/17 01/24/17 01/24/17 22:59 06:59 14:59 Intake Total 360 Balance 360 Intake: Oral 360 Other: Weight 85.5 kg Gen: This is a 26-year-old male. He is sitting up in bed and appears to be in no acute distress. No respiratory distress noted. HEENT: Head is atraumatic, normocephalic. Pupils equal, round. Sclerae is anicteric. Conjunctiva pink. oral mucous membranes are moist. No thrush noted. No lesions. Dentition is in good order. NECK: Supple. No JVD. No lymphadenopathy. No thyromegaly. LUNGS: Clear to auscultation. No wheezes or rhonchi. Diminished to the bilateral bases more so on the left than right. No intercostal retractions. HEART: Regular rate and rhythm. No murmur. tachycardia noted. Sternal wound and chest tube wounds 3 show no signs of infection. ABDOMEN: Soft. Bowel sounds are present. No masses. No tenderness. EXTREMITIES: No pedal edema. No calf tenderness. Ddorsalis pedis +2 bilaterally NEUROLOGICAL: Patient is awake, alert and oriented x3. Cranial nerves 2 through 12 are grossly intact. Results CBC & Chem 7: 01/24/17 02:20 01/24/17 02:20 Labs: Abnormal Lab Results - Last 24 Hours (Table) 01/24/17 Range/Units 08:51 Troponin I 0.156 H* (0.000-0.034) ng/mL Assessment and Plan Plan: this is a 26-year-old male who presented to the hospital with nausea and one episode of vomiting with tachycardia, low-grade fever. Patient is feeling much improved and has received Levaquin and Zosyn. Cardiology has increased his beta margarette. He is noted to have elevated liver function tests which was present on his last hospitalization. Plan for patient to go home on cefuroxime for possible early infiltrate or pneumonia. Patient has been encouraged to continue incentive spirometry. Continue supportive care. Further recommendations as patient progresses. Blood culture is status received as well as urine culture. The above dictated assessment and findings were discussed with Dr. Palencia. The impression and plan of care have been directed as dictated. Sandra Toth nurse practitioner acting as scribe for Dr. Palencia. Time with Patient: Greater than 30
[2017-01-24] MEDS ORDERED: PIPERACILLIN-TAZOBACTAM 3.375 GM in DEXTROSE/WATER 1 50ML.BAG IVPB SCH (16:00)
[2017-01-24] MEDS ORDERED: WARFARIN 5 MG TAB PO SCH (18:00)
[2017-01-24] MEDS ORDERED: WARFARIN 7.5 MG TAB PO ONE (18:00)
--- NOTE | 2017-01-24 19:34 | P.PN ---
Subjective Principal diagnosis: Fever this is a 26-year-old male. He was recently hospitalized due to history of severe aortic valve stenosis with bicuspid valve and moderate dilated ascending aorta at 4.5 cm. Patient underwent replacement of the aortic valve with a mechanical valve and repair of the ascending aorta on January 12. He was discharged home on January 22. He had an uncomplicated postop.. Patient does state that he received 2 units of blood during his stay. Patient was discharged home and he denies having any concerns at the time. He had dinner last night which was chicken, peppers and rice and ended up feeling nauseated and vomited 1. His is keeping track of his blood pressure which was then elevated and his heart rate was greater than 1:30 and temperature 99.6. Patient does have a history of chronic tachycardia. He also has had some loose stools which she states is due to stool softeners but are firming. He denies any watery stools. He complains of a scratchy throat with a cough from the scratchiness. He denies any shortness of breath. Patient presented to [facility] emergency center where he was found to have a temperature 100.7, white count 12.8, total bilirubin was 1.4, AST 60, ALT 159. BNP was 1200. Troponin was 0.159. Albumin 4.1. Influenza testing A and B negative. patient was started on Levaquin and Zosyn and admitted to the selective care unit where he has been seen by cardiology and cardiothoracic surgery. His chest x-ray showed bilateral pleural effusions left greater than right with patchy bilateral edema and or pneumonia or atelectasis. Patient states he ate his breakfast this morning. He has had no further episodes of nausea or vomiting. He denies dysphagia. He denies fever, chills. he denies abdominal pain. He states that he is feeling the best that he has since his open heart surgery. Please see the consult note as dictated by nurse practitioner Mrs. Sandra Toth. Very pleasant 26-year-old male who is now status post his aortic valve replacement. Was doing well until the onset of the fever and some nausea and emesis. At this time the patient is much improved. His exam revealed evidence of the click from his aortic valve. He has no significant wheezing or bronchial sounds on his pulmonary exam. He seems to have had a significant improvement recommended Hospital. Given his great risk and significant improvement after initiating antibiotic therapy will discontinue Levaquin and piperacillin tazobactam. Like to avoid Levaquin because he will be on Coumadin therapy. Cefuroxime will be utilized for 7 days to complete treatment for a tracheobronchitis or possible early pneumonitis is seen by his abnormal chest x- ray. He fortunately is much improved except for some tachycardia. His beta margarette is being enhance. If the tachycardia improved will be discharged home on cefuroxime. I agree with evaluation, assessment and plan as dictated by nurse practitioner Mrs. Sandra Toth. Objective - Vital Signs Vital signs: Vital Signs Temp 98.0 F 01/24/17 15:54 Pulse 79 01/24/17 15:54 Resp 18 01/24/17 15:54 BP 154/82 01/24/17 15:54 Pulse Ox 97 01/24/17 15:54 Intake & Output 01/24/17 01/24/17 01/25/17 06:59 18:59 06:59 Intake Total 360 Balance 360 Weight 85.5 kg Intake: Oral 360 Other: Voiding Method Toilet # Voids 2 - Labs CBC & Chem 7: 01/24/17 02:20 01/24/17 02:20 Labs: Abnormal Lab Results - Last 24 Hours (Table) 01/24/17 Range/Units 08:51 Troponin I 0.156 H* (0.000-0.034) ng/mL
[2017-01-24] MEDS: CEFUROXIME 250 MG TAB PO SCH (22:17)
[2017-01-25] MEDS ORDERED: LEVOFLOXACIN 750MG-D5W PMX 750 MG in DEXTROSE/WATER 1 150ML.BAG IVPB SCH (06:00)
[2017-01-25 07:23] LABS: INR 3.8 (<1.1); Prothrombin Time 37.4 sec (9.0-12.0)
[2017-01-25 07:25] LABS: Aty Lym Flag Slight; CH 29.6; CHCM 32.5; HCT 33.7 % (39.0-53.0); HDW 4.29; HGB 10.4 gm/dL (13.0-17.5); Hypochromasia Moderate; MCH 28.5 pg (25.0-35.0); MCV 91.8 fL (80.0-100.0); Mean Platelet Volume 7.2; Poikilocytosis Moderate; RBC 3.67 m/uL (4.30-5.90); RDW 14.6 % (11.5-15.5); WBC 9.2 k/uL (3.8-10.6); WBC (Perox) 9.66
--- NOTE | 2017-01-25 07:27 | XR ---
EXAMINATION TYPE: XR chest 2V DATE OF EXAM: 01/25/2017 7:00 AM COMPARISON: Prior chest x-ray and chest ultrasound from yesterday. HISTORY: Pneumonia progress study. TECHNIQUE: Frontal and lateral views of the chest are obtained. FINDINGS: There is persistent small left greater than right pleural effusions. There is interval im provement in bibasilar atelectasis and/or infiltrate. Sternal wires and metallic aortic valve are red emonstrated. The cardiac silhouette size is stable and within normal limits. The osseous structures are intact. IMPRESSION: Stable small left greater than right pleural effusions, interval improvement in associat ed bibasilar atelectasis and/or infiltrate is noted.
[2017-01-25 07:41] LABS: ALT 125 U/L (21-72); AST 42 U/L (17-59); Alkaline Phosphatase 61 U/L (38-126); Anion Gap 14 mmol/L; Blood Urea Nitrogen 12 mg/dL (9-20); Calcium 9.4 mg/dL (8.4-10.2); Carbon Dioxide 24 mmol/L (22-30); Chloride 103 mmol/L (98-107); Glucose 102 mg/dL (74-99); Non-African American GFR(MDRD) >60 (>60 ml/min/1.73 sqM); Potassium 4.4 mmol/L (3.5-5.1); Sodium 141 mmol/L (137-145); Total Protein 6.9 g/dL (6.3-8.2)
[2017-01-25 08:18] LABS: Add Differential Manual Differential
[2017-01-25 08:22] LABS: Nucleated Red Blood Cells 0 /100 WBC (0-0); Total Cells Counted 100
[2017-01-25 08:23] LABS: Toxic Granulation Present
[2017-01-25 08:33] VITALS: RESP 16
[2017-01-25] MEDS: ASPIRIN 81 MG CHEW PO SCH (08:56)
[2017-01-25] MEDS: METOPROLOL TARTRATE 50 MG TAB PO SCH (08:56)
[2017-01-25] MEDS: CEFUROXIME 250 MG TAB PO SCH (08:56)
--- NOTE | 2017-01-25 09:18 | P.PN ---
Subjective Principal diagnosis: Shortness of breath, low-grade fever, rule out pneumonia. POD#10 mechanical aortic valve replacement using 23 mm On-X valve, repair of ascending aortic aneurysm with a supra-coronary conduit using a 30 mm Hemashield straight graft. Patient currently sitting up in the bed in good spirits, in no apparent distress. Would like to go home. States he is feeling much better than when he came in. Objective - Vital Signs Vital signs: Vital Signs Temp 98.2 F 01/25/17 08:00 Pulse 115 H 01/25/17 08:00 Resp 16 01/25/17 08:00 BP 127/72 01/25/17 08:00 Pulse Ox 97 01/25/17 08:00 Intake & Output 01/24/17 01/25/17 01/25/17 18:59 06:59 18:59 Intake Total 360 250 Balance 360 250 Weight 84.1 kg Intake: Oral 360 250 Other: Voiding Method Toilet Toilet # Voids 2 1 - Constitutional General appearance: Present: cooperative, no acute distress - Respiratory Details: Lungs sounds diminished bilaterally in the bases, left greater than right. Respirations even, nonlabored. Remains on room air. Effective cough. - Cardiovascular Details: S1, S2 present. Tachycardia rate, regular rhythm. Sinus tach on telemetry. Chest stable. Heart hugger in place with patient demonstrating appropriate use. No edema present. - Gastrointestinal Gastrointestinal Comment(s): abdomen soft, nontender, nondistended. Active bowel sounds 4 quadrants. Tolerating diet. - Genitourinary Genitourinary Comment(s): Patient voiding clear, yellow urine. - Integumentary Integumentary Comment(s): Anterior chest incision well approximated. - Musculoskeletal Musculoskeletal: Present: gait normal, strength equal bilaterally - Psychiatric Psychiatric: Present: A&O x's 3, appropriate affect, intact judgment & insight - Allied health notes Allied health notes reviewed: nursing - Labs CBC & Chem 7: 01/25/17 07:09 01/25/17 07:09 Labs: Abnormal Lab Results - Last 24 Hours (Table) 01/24/17 01/25/17 01/25/17 Range/Units 08:51 07:09 07:09 RBC 3.67 L (4.30-5.90) m/uL Hgb 10.4 L (13.0-17.5) gm/dL Hct 33.7 L (39.0-53.0) % Plt Count 582 H (150-450) k/uL PT 37.4 H (9.0-12.0) sec Glucose (74-99) mg/dL ALT (21-72) U/L Troponin I 0.156 H* (0.000-0.034) ng/mL 01/25/17 Range/Units 07:09 RBC (4.30-5.90) m/uL Hgb (13.0-17.5) gm/dL Hct (39.0-53.0) % Plt Count (150-450) k/uL PT (9.0-12.0) sec Glucose 102 H (74-99) mg/dL ALT 125 H (21-72) U/L Troponin I (0.000-0.034) ng/mL Assessment and Plan (1) Status post mechanical aortic valve replacement Status: Acute (2) S/P repair of abdominal aortic aneurysm using bifurcation graft Status: Acute (3) Tachycardia Status: Acute Plan: 1. Continue aspirin, Lopressor. Would not increase Lopressor any further as blood pressure may not tolerated. 2. INR 3.8 this morning. DC Lovenox. No Coumadin today. Goal INR 2-2.5. 3. Continue Ceftin per Dr. Palencia recommendations 4. May be discharged home from our standpoint. Follow with Coumadin clinic in the cardiology office for further Coumadin dosing. 5. Patient encouraged to continue incentive spirometry use. Time with Patient: Greater than 30
[2017-01-25 12:17] VITALS: BP 102/64; PULSE 101; TEMP 96.8
--- NOTE | 2017-01-27 13:31 | DS ---
DATE OF ADMISSION: 01/24/2017 DATE OF DISCHARGE: 01/25/2017 FINAL DIAGNOSES: 1. Right lower lobe pneumonia, suspect gram-negative organism, community-acquired. 2. Coumadin monitoring for therapeutic level. 3. Small right pleural effusion post cardiac surgery from recent admission. 4. Acute postoperative blood loss anemia expected from surgery. 5. Reactive thrombocytosis. 6. Mechanical aortic valve replacement for severe aortic valve stenosis, bicuspid, and repair of ascending aneurysmal dilatation on last admission. HOSPITAL COURSE: This patient just left the hospital 2 days ago, presented with possible right lobe pneumonia. Did get antibiotics to which he responded. White count came down up. Up an about, doing well. On exam, LUNGS: Clear. CARDIOVASCULAR: First and second seconds normal. CONSULTATIONS: Dr. Guevara from Cardiothoracic. Dr. Palencia from Infectious Disease, Dr. Leo Mathew from Cardiology. DISCHARGE MEDICATIONS: 1. Imitrex 25 mg p.o. daily p.r.n. 2. Aspirin 81 mg p.o. daily. 3. Coumadin 5 mg p.o. daily. 4. Ceftin 500 mg p.o. b.i.d. 14 tablets. 5. Ultram 50 to 100 q.i.d. p.r.n. 6. Lopressor 150 mg p.o. b.i.d. FOLLOWUP: 1. Follow up with Dr. Senait Taveras 01/31/2017. 2. Follow up with Dr. Guevara on 02/16/2017. 3. Follow up with Dr. Damian on 02/01/2017. 4. Follow up with Dr. Anand on 02/12/2017. CBC, CMP, INR on 01/26/2017.
== END 2017-01-25 14:20 | disposition home health service (06) | DRG 194 ==
LOC: EC 01:55 → 6SEL 05:37
PROVIDERS: ADMIT Hospitalist; ATTEND Hospitalist
DX: J18.9 Pneumonia, unspecified organism (principal); J98.11 Atelectasis; J90 Pleural effusion, not elsewhere classified; K75.9 Inflammatory liver disease, unspecified; D75.89 Other specified diseases of blood and blood-forming organs; G43.909 Migraine, unspecified, not intractable, without status migrainosus; Z95.1 Presence of aortocoronary bypass graft; Z95.2 Presence of prosthetic heart valve; Z87.891 Personal history of nicotine dependence; Z79.82 Long term (current) use of aspirin; Z79.899 Other long term (current) drug therapy; Z79.01 Long term (current) use of anticoagulants
CPT/HCPCS: 36415; 71020; 76604; 80053; 81003; 82533; 82550; 82553; 83605; 83880; 84484; 85025; 85610; 85730; 87040; 87086; 87502; 93005; 96365; 96366; 99291

== ENCOUNTER → 2017-01-26 | Outpatient (CLI) | payer BC, OTHER ==
[2017-01-26 15:00] LABS: INR 2.2 (<1.1); Prothrombin Time 21.6 sec (9.0-12.0)
[2017-01-26 15:07] LABS: Basophils # (A) 0.1 k/uL (0-0.2); Basophils % (A) 0 %; CH 29.1; Eosinophils # (A) 0.4 k/uL (0-0.7); Eosinophils % (A) 3 %; HCT 34.6 % (39.0-53.0); HDW 4.35; HGB 10.8 gm/dL (13.0-17.5); Hypochromasia Marked; Luc # (Auto) 0.36; Luc % (Auto) 3; Lymphocytes # (A) 1.9 k/uL (1.0-4.8); Lymphocytes % (A) 16 %; MCH 28.7 pg (25.0-35.0); MCHC 31.3 g/dL (31.0-37.0); MCV 91.5 fL (80.0-100.0); Mean Platelet Volume 7.7; Monocytes # (A) 0.7 k/uL (0-1.0); Monocytes % (A) 6 %; Neutrophils # (A) 8.6 k/uL (1.3-7.7); Neutrophils % (A) 72 %; Poikilocytosis Moderate; RBC 3.78 m/uL (4.30-5.90); RDW 14.6 % (11.5-15.5); WBC 11.9 k/uL (3.8-10.6); WBC (Perox) 11.22
[2017-01-26 15:12] LABS: ALT 138 U/L (21-72); AST 72 U/L (17-59); Alkaline Phosphatase 56 U/L (38-126); Anion Gap 17 mmol/L; Blood Urea Nitrogen 12 mg/dL (9-20); Calcium 9.5 mg/dL (8.4-10.2); Carbon Dioxide 23 mmol/L (22-30); Chloride 103 mmol/L (98-107); Glucose 101 mg/dL (74-99); Non-African American GFR(MDRD) >60 (>60 ml/min/1.73 sqM); Potassium 4.6 mmol/L (3.5-5.1); Sodium 143 mmol/L (137-145); Total Bilirubin 0.8 mg/dL (0.2-1.3); Total Protein 7.4 g/dL (6.3-8.2)
== END ==
LOC: LABWHC1 14:38
PROVIDERS: ATTEND Nurse Practitioner Acute Care
DX: Z09 Encounter for follow-up examination after completed treatment for conditions other than malignant neoplasm (principal); Z98.890 Other specified postprocedural states
CPT/HCPCS: 36415; 80053; 85025; 85610

== ENCOUNTER → 2017-02-26 | Outpatient (CLI) | payer BC, OTHER ==
[2017-02-26 08:55] LABS: INR 2.4 (<1.1); Prothrombin Time 23.6 sec (9.0-12.0)
[2017-02-26 08:56] LABS: CH 27.7; CHCM 32.3; HCT 43.6 % (39.0-53.0); HDW 3.74; Hypochromasia Slight; MCH 27.6 pg (25.0-35.0); MCHC 32.2 g/dL (31.0-37.0); Mean Platelet Volume 6.2; Poikilocytosis Slight; RBC 5.09 m/uL (4.30-5.90); RDW 14.2 % (11.5-15.5); WBC 7.4 k/uL (3.8-10.6)
[2017-02-26 08:59] LABS: HGB 14.1 gm/dL (13.0-17.5); MCV 85.8 fL (80.0-100.0)
[2017-02-26 09:13] LABS: Anion Gap 12 mmol/L; Blood Urea Nitrogen 12 mg/dL (9-20); Calcium 10.1 mg/dL (8.4-10.2); Carbon Dioxide 28 mmol/L (22-30); Chloride 103 mmol/L (98-107); Glucose 95 mg/dL (74-99); Non-African American GFR(MDRD) >60 (>60 ml/min/1.73 sqM); Potassium 4.4 mmol/L (3.5-5.1); Sodium 143 mmol/L (137-145)
== END ==
LOC: LABWHC1 08:11
PROVIDERS: ATTEND Internal Medicine Interventional Cardiology
DX: Z09 Encounter for follow-up examination after completed treatment for conditions other than malignant neoplasm (principal); Z98.890 Other specified postprocedural states
CPT/HCPCS: 36415; 80048; 85027; 85610

== ENCOUNTER 2018-03-25 12:17 | Emergency (ER) | payer BC, OTHER ==
[2018-03-25 12:28] VITALS: TEMP 97
[2018-03-25] MEDS ORDERED: RX INFO: IV CONTRAST WAS GIVEN 1 EACH MISC MISCELLANE PRN (12:34)
[2018-03-25] MEDS ORDERED: SODIUM CHLORIDE 0.9% 1,000 ML IV STA (12:34)
--- NOTE | 2018-03-25 12:50 | ED ---
General Adult HPI - General Chief complaint: Neuro Symptoms/Deficit Stated complaint: TIA Symptoms Time Seen by Provider: 03/25/18 12:34 Source: patient, RN notes reviewed, old records reviewed Mode of arrival: wheelchair Limitations: no limitations - History of Present Illness Initial comments: This is a 27-year-old male to the ER for evaluation neurological complaints and symptoms. Altered mental state. Patient has history of CVA TIA, history of complicated heart history. Patient denies chest pain. Patient was on the phone with his and states patient had difficulty with speaking, difficulty Faulk with conversation. At this point patient states all symptoms are resolved and he feels normal - Related Data Home Medications Medication Instructions Recorded Confirmed Aspirin [Adult Low Dose Aspirin EC] 81 mg PO DAILY 01/15/17 03/25/18 Atorvastatin [Lipitor] 10 mg PO DAILY 03/25/18 03/25/18 Metoprolol Tartrate [Lopressor] 25 mg PO DAILY 03/25/18 03/25/18 Warfarin [Coumadin] 2.5 mg PO SUTUTH 03/25/18 03/25/18 Warfarin [Coumadin] 5 mg PO MOWEFRSA 03/25/18 03/25/18 Allergies Allergy/AdvReac Type Severity Reaction Status Date / Time No Known Allergies Allergy Verified 03/25/18 13:00 Review of Systems ROS Statement: Those systems with pertinent positive or pertinent negative responses have been documented in the HPI. ROS Other: All systems not noted in ROS Statement are negative. Past Medical History Past Medical History: Coronary Artery Disease (CAD), CVA/TIA Additional Past Medical History / Comment(s): Born with bicupsid-aortic valve so has murmur, migraines History of Any Multi-Drug Resistant Organisms: None Reported Past Surgical History: Coronary Bypass/CABG, Heart Catheterization, Hernia Repair Additional Past Surgical History / Comment(s): bilateral inguinal hernia repairs as , aortic valve replacement and ascending aorta repair Past Anesthesia/Blood Transfusion Reactions: No Reported Reaction Additional Past Anesthesia/Blood Transfusion Reaction / Comment(s): no hx blood transfusion Past Psychological History: No Psychological Hx Reported Smoking Status: Former smoker Past Alcohol Use History: Occasional Past Drug Use History: None Reported - Past Family History Father History Unknown: Yes Family Medical History: No Reported History Additional Family Medical History / Comment(s): Father is healthy and in his 50' s Mother History Unknown: Yes Family Medical History: No Reported History Additional Family Medical History / Comment(s): Mother is healthy and in her 50' s. General Exam Limitations: no limitations General appearance: alert, in no apparent distress Head exam: Present: atraumatic, normocephalic, normal inspection Eye exam: Present: normal appearance, PERRL, EOMI. Absent: scleral icterus, conjunctival injection, periorbital swelling ENT exam: Present: normal exam, mucous membranes moist Neck exam: Present: normal inspection. Absent: tenderness, meningismus, lymphadenopathy Respiratory exam: Present: normal lung sounds bilaterally. Absent: respiratory distress, wheezes, rales, rhonchi, stridor Cardiovascular Exam: Present: regular rate, normal rhythm, normal heart sounds. Absent: systolic murmur, diastolic murmur, rubs, gallop, clicks GI/Abdominal exam: Present: soft, normal bowel sounds. Absent: distended, tenderness, guarding, rebound, rigid Extremities exam: Present: normal inspection, full ROM, normal capillary refill. Absent: tenderness, pedal edema, joint swelling, calf tenderness Back exam: Present: normal inspection Neurological exam: Present: alert, oriented X3, CN II-XII intact Psychiatric exam: Present: normal affect, normal mood Skin exam: Present: warm, dry, intact, normal color. Absent: rash Course Vital Signs 03/25/18 03/25/18 03/25/18 12:25 13:21 14:07 Temperature 97 F L Pulse Rate 71 69 71 Respiratory 18 18 16 Rate Blood Pressure 130/74 129/76 129/65 O2 Sat by Pulse 100 96 98 Oximetry - Reevaluation(s) Reevaluation #1: 03/25/18 12:50 Medical record and prior hospitalizations are reviewed Reevaluation #2: 03/25/18 14:16 Patient symptoms remain resolved EKG Findings - EKG Comments: EKG Findings:: EKG shows normal sinus rhythm rate of 66, RI 150, QRS 80, QTC 419 Medical Decision Making - Medical Decision Making Plan I male with complex history of heart disease coming in with TIA type symptoms. Patient is neurologically intact currently. CT is negative and patient can be discharged home - Lab Data Result diagrams: 03/25/18 12:54 03/25/18 12:54 Lab Results 03/25/18 03/25/18 03/25/18 Range/Units 12:54 12:54 12:54 WBC 8.4 (3.8-10.6) k/uL RBC 5.40 (4.30-5.90) m/uL Hgb 16.4 (13.0-17.5) gm/dL Hct 46.4 (39.0-53.0) % MCV 86.0 (80.0-100.0) fL MCH 30.3 (25.0-35.0) pg MCHC 35.3 (31.0-37.0) g/dL RDW 12.8 (11.5-15.5) % Plt Count 218 (150-450) k/uL Neutrophils % 73 % Lymphocytes % 18 % Monocytes % 6 % Eosinophils % 1 % Basophils % 0 % Neutrophils # 6.2 (1.3-7.7) k/uL Lymphocytes # 1.5 (1.0-4.8) k/uL Monocytes # 0.5 (0-1.0) k/uL Eosinophils # 0.1 (0-0.7) k/uL Basophils # 0.0 (0-0.2) k/uL PT (9.0-12.0) sec INR (<1.2) APTT (22.0-30.0) sec Sodium 138 (137-145) mmol/L Potassium 4.1 (3.5-5.1) mmol/L Chloride 99 (98-107) mmol/L Carbon Dioxide 24 (22-30) mmol/L Anion Gap 15 mmol/L BUN 16 (9-20) mg/dL Creatinine 0.85 (0.66-1.25) mg/dL Est GFR (CKD-EPI)AfAm >90 (>60 ml/min/1.73 sqM) Est GFR (CKD-EPI)NonAf >90 (>60 ml/min/1.73 sqM) Glucose 106 H (74-99) mg/dL Calcium 9.9 (8.4-10.2) mg/dL Total Bilirubin 1.2 (0.2-1.3) mg/dL AST 50 (17-59) U/L ALT 79 H (21-72) U/L Alkaline Phosphatase 80 (38-126) U/L Total Creatine Kinase 160 (55-170) U/L CK-MB (CK-2) 0.6 (0.0-2.4) ng/mL CK-MB (CK-2) Rel Index 0.4 Troponin I <0.012 (0.000-0.034) ng/mL Total Protein 7.5 (6.3-8.2) g/dL Albumin 5.0 (3.5-5.0) g/dL Serum Alcohol <10 mg/dL 03/25/18 Range/Units 12:54 WBC (3.8-10.6) k/uL RBC (4.30-5.90) m/uL Hgb (13.0-17.5) gm/dL Hct (39.0-53.0) % MCV (80.0-100.0) fL MCH (25.0-35.0) pg MCHC (31.0-37.0) g/dL RDW (11.5-15.5) % Plt Count (150-450) k/uL Neutrophils % % Lymphocytes % % Monocytes % % Eosinophils % % Basophils % % Neutrophils # (1.3-7.7) k/uL Lymphocytes # (1.0-4.8) k/uL Monocytes # (0-1.0) k/uL Eosinophils # (0-0.7) k/uL Basophils # (0-0.2) k/uL PT 16.9 H (9.0-12.0) sec INR 1.9 H (<1.2) APTT 25.6 (22.0-30.0) sec Sodium (137-145) mmol/L Potassium (3.5-5.1) mmol/L Chloride (98-107) mmol/L Carbon Dioxide (22-30) mmol/L Anion Gap mmol/L BUN (9-20) mg/dL Creatinine (0.66-1.25) mg/dL Est GFR (CKD-EPI)AfAm (>60 ml/min/1.73 sqM) Est GFR (CKD-EPI)NonAf (>60 ml/min/1.73 sqM) Glucose (74-99) mg/dL Calcium (8.4-10.2) mg/dL Total Bilirubin (0.2-1.3) mg/dL AST (17-59) U/L ALT (21-72) U/L Alkaline Phosphatase (38-126) U/L Total Creatine Kinase (55-170) U/L CK-MB (CK-2) (0.0-2.4) ng/mL CK-MB (CK-2) Rel Index Troponin I (0.000-0.034) ng/mL Total Protein (6.3-8.2) g/dL Albumin (3.5-5.0) g/dL Serum Alcohol mg/dL - Radiology Data Radiology results: report reviewed (CT brain CT chest had and neck is negative for acute disease), image reviewed Disposition Clinical Impression: Transient cerebral ischemia Disposition: HOME SELF-CARE Condition: Good Instructions: Transient Ischemic Attack (ED) Is patient prescribed a controlled substance at d/c from ED?: No Referrals: Tej Damian MD [Primary Care Provider] - 1-2 days
[2018-03-25 13:35] LABS: Basophils % (A) 0 %; Eosinophils # (A) 0.1 k/uL (0-0.7); Eosinophils % (A) 1 %; HCT 46.4 % (39.0-53.0); HGB 16.4 gm/dL (13.0-17.5); Lymphocytes # (A) 1.5 k/uL (1.0-4.8); Lymphocytes % (A) 18 %; MCH 30.3 pg (25.0-35.0); MCHC 35.3 g/dL (31.0-37.0); Mean Platelet Volume 6.6; Monocytes # (A) 0.5 k/uL (0-1.0); Monocytes % (A) 6 %; Neutrophils # (A) 6.2 k/uL (1.3-7.7); Neutrophils % (A) 73 %; Platelet Count 218 k/uL (150-450); RDW 12.8 % (11.5-15.5); WBC 8.4 k/uL (3.8-10.6)
--- NOTE | 2018-03-25 13:43 | CT ---
EXAMINATION TYPE: CT brain wo con for TPA DATE OF EXAM: 03/25/2018 COMPARISON: CT brain February 24, 2016. HISTORY: Patient complains of headache, blurry vision, and confusion. Neurodeficits. CT DLP: 1090.5 mGycm Automated exposure control for dose reduction was used. FINDINGS: There is no acute intracranial hemorrhage, mass effect, or midline shift identified. The ventricles and sulci are within normal limits in size. Guerrero-white matter differentiation is maintained. The belkis bes are intact and the visualized sinuses are clear. IMPRESSION: No acute intracranial hemorrhage, mass effect, or midline shift is seen. No significant change from p rior CT.
[2018-03-25 13:44] LABS: INR 1.9 (<1.2); Partial Thromboplastin Time 25.6 sec (22.0-30.0); Prothrombin Time 16.9 sec (9.0-12.0)
[2018-03-25 13:49] LABS: ALT 79 U/L (21-72); AST 50 U/L (17-59); Alcohol <10 mg/dL; Alkaline Phosphatase 80 U/L (38-126); Anion Gap 15 mmol/L; Blood Urea Nitrogen 16 mg/dL (9-20); Calcium 9.9 mg/dL (8.4-10.2); Carbon Dioxide 24 mmol/L (22-30); Chloride 99 mmol/L (98-107); Glucose 106 mg/dL (74-99); Potassium 4.1 mmol/L (3.5-5.1); Sodium 138 mmol/L (137-145); Total Bilirubin 1.2 mg/dL (0.2-1.3); Total Protein 7.5 g/dL (6.3-8.2)
[2018-03-25 14:01] LABS: Creatine Kinase 160 U/L (55-170)
[2018-03-25 14:07] VITALS: BP 129/65; PULSE 71; RESP 16
--- NOTE | 2018-03-25 14:09 | CT ---
EXAMINATION TYPE: CT angio head neck DATE OF EXAM: 03/25/2018 HISTORY: Patient complains of headache, blurry vision, and confusion. COMPARISON: Carotid ultrasound January 04, 2017. CT DLP: 373.69 mGycm. Automated Exposure Control for Dose Reduction was Utilized. TECHNIQUE: CTA scan of the head and neck are performed with IV Contrast, patient injected with 65 mL of Isovue 370, axial images are obtained, coronal and sagittal reformatted images are reviewed. Thre e-D reconstructed images are created on an independent workstation and reviewed. FINDINGS: Carotid/Vascular Structures: There is normal three-vessel origin from the aortic arch. The right comm on carotid artery shows normal origin from right brachiocephalic artery. There is no significant plaq ue or stenosis including bilateral subclavian arteries. The right common and internal carotid artery show no significant plaque or stenosis. No suspicious plaque is seen at right carotid bulb level. The re is patent external carotid artery without significant plaque or stenosis. There is no significant plaque or stenosis in left common or internal carotid artery. Mild posterior calcified plaque left carotid bulb is present. There is patent left external carotid artery without s ignificant plaque or stenosis. There is dominant left vertebral artery. Vertebral arteries are patent to basilar junction. There is no significant focal stenosis or aneurysmal change in the posterior circulation. Patent posterior com municating arteries are not definitively seen. There is no significant focal stenosis in the anterior circulation. There is patent anterior communic ating artery identified. Some tortuous course to the distal internal carotid arteries bilaterally is present. Other: No significant additional finding is seen. IMPRESSION: 1. No significant focal stenosis in common or internal carotid arteries bilaterally. 2. No aneurysmal change or significant stenosis at level of [place].
[2018-03-25 14:13] LABS: Creatine Kinase MB 0.6 ng/mL (0.0-2.4); Troponin I <0.012 ng/mL (0.000-0.034)
[2018-03-25 14:26] LABS: Appearance,Urine Clear (Clear); Bilirubin,Urine Negative (Negative); Blood,Urine Negative (Negative); Color,Urine Yellow; Glucose,Urine (UA) Negative (Negative); Ketones,Urine Trace (Negative); Leukocyte Esterase,Urine Negative (Negative); Nitrite,Urine Negative (Negative); PH, Urine 7.5 (5.0-8.0); Protein,Urine Negative (Negative); Specific Gravity,Urine 1.018 (1.001-1.035); Urobilinogen,Urine <2.0 mg/dL (<2.0)
[2018-03-25 14:37] LABS: Amphetamine Screen,Urine Not Detected (NotDetected); Barbiturate Screen,Urine Not Detected (NotDetected); Benzodiazepines Screen,Urine Not Detected (NotDetected); Cocaine Screen,Urine Not Detected (NotDetected); Methadone Screen, Urine Not Detected (NotDetected); Opiate Screen,Urine Not Detected (NotDetected); Oxycodone Screen, Urine Not Detected (NotDetected); Phencyclidine Screen,Urine Not Detected (NotDetected); Tricyclic Antidepressant,Urine Not Detected (NotDetected); Urn Cannabinoid Scrn Not Detected (NotDetected)
== END 2018-03-25 14:24 | disposition home or self-care (01) ==
LOC: EC 12:17
DX: G45.9 Transient cerebral ischemic attack, unspecified (principal); Q23.1 Congenital insufficiency of aortic valve; I25.10 Atherosclerotic heart disease of native coronary artery without angina pectoris; Z87.891 Personal history of nicotine dependence; Z79.01 Long term (current) use of anticoagulants; Z79.82 Long term (current) use of aspirin; Z79.899 Other long term (current) drug therapy; Z95.1 Presence of aortocoronary bypass graft; Z95.2 Presence of prosthetic heart valve; Z98.890 Other specified postprocedural states
CPT/HCPCS: 99285; 96360; 36415; 93005; 80053; 82550; 82553; 84484; 85025; 85610; 85730; 81003; 80306; 80320; 70496; 70450; 70498; Q9967

== ENCOUNTER → 2018-03-28 | Outpatient (CLI) | payer BC, OTHER ==
--- NOTE | 2018-03-28 09:45 | MR ---
EXAMINATION TYPE: MR brain wo con DATE OF EXAM: 03/28/2018 COMPARISON: CT brain 03/25/2018, MRI 03/30/2016 HISTORY: Transient cerebral ischemic attack T1-weighted sagittal, T2, FLAIR, and diffusion axial, and T2 coronal coronal views of the brain are s ubmitted. There is no evidence of acute ischemia. The ventricles, basal cisterns, and sulci overlying the conv exities are consistent with the patient's age. There is no mass effect. Craniocervical junction maintained. Sella turcica has a normal appearance. No cerebellopontine angle mass. Changes of chronic sinusitis noted. IMPRESSION: 1. No acute intracranial process. 2. Correlate for changes of chronic sinusitis.
== END | disposition home or self-care (01) ==
LOC: RADMRIMAIN 08:49
PROVIDERS: ATTEND Family Medicine
DX: G45.9 Transient cerebral ischemic attack, unspecified (principal)
CPT/HCPCS: 70551

== ENCOUNTER → 2019-10-07 | Outpatient (CLI) | payer BC ==
[2019-10-07 16:28] LABS: Basophils # (A) 0.1 k/uL (0-0.2); Basophils % (A) 1 %; Eosinophils # (A) 0.2 k/uL (0-0.7); Eosinophils % (A) 3 %; HGB 16.1 gm/dL (13.0-17.5); Lymphocytes # (A) 1.8 k/uL (1.0-4.8); Lymphocytes % (A) 23 %; MCH 30.8 pg (25.0-35.0); MCHC 33.5 g/dL (31.0-37.0); MCV 91.8 fL (80.0-100.0); Mean Platelet Volume 6.1; Monocytes # (A) 0.5 k/uL (0-1.0); Monocytes % (A) 7 %; Neutrophils # (A) 4.8 k/uL (1.3-7.7); Neutrophils % (A) 64 %; Platelet Count 264 k/uL (150-450); RBC 5.23 m/uL (4.30-5.90); RDW 12.6 % (11.5-15.5); WBC 7.5 k/uL (3.8-10.6)
[2019-10-07 16:33] LABS: INR 2.1 (<1.2); Prothrombin Time 20.4 sec (9.0-12.0)
[2019-10-08 00:43] LABS: African American GFR (CKD) 92.8 (60.0-200.0); Albumin 4.9 g/dL (3.80-4.90); Albumin/Globulin Ratio 2.58 (1.60-3.17); Anion Gap 7.4 mmol/L (4.00-12.00); BUN/Creat Ratio 10.83 Ratio (12.00-20.00); Calcium 9.6 mg/dL (8.7-10.3); Carbon Dioxide 27.6 mmol/L (21.6-31.8); Chol/HDL Ratio 3.77; Globulin 1.9 g/dL (1.6-3.3); LDL Cholesterol,Calculated 113.2 mg/dL (0.0-131.0); Non-African American GFR(CKD) 80.1 (60.0-200.0); Potassium 4.1 mmol/L (3.5-5.5); Total Bilirubin 0.7 mg/dL (0.3-1.2); Total Protein 6.8 g/dL (6.2-8.2); VLDL Calculation 41.8 mg/dL (5.00-40.00)
== END | disposition home or self-care (01) ==
LOC: LABWHC1 16:01
PROVIDERS: ATTEND Family Medicine
DX: Z51.81 Encounter for therapeutic drug level monitoring (principal); Z79.01 Long term (current) use of anticoagulants
CPT/HCPCS: 36415; 80053; 80061; 85025; 85610

== ENCOUNTER → 2020-12-06 | Outpatient (CLI) | payer OTHER ==
[2020-12-06 14:32] LABS: Basophils % (A) 0 %; Eosinophils # (A) 0.2 k/uL (0-0.7); Eosinophils % (A) 2 %; HGB 15.2 gm/dL (13.0-17.5); Lymphocytes # (A) 1.7 k/uL (1.0-4.8); Lymphocytes % (A) 23 %; MCHC 33.1 g/dL (31.0-37.0); MCV 90.5 fL (80.0-100.0); Mean Platelet Volume 6.7; Monocytes # (A) 0.4 k/uL (0-1.0); Monocytes % (A) 6 %; Neutrophils # (A) 5.1 k/uL (1.3-7.7); Neutrophils % (A) 68 %; Platelet Count 210 k/uL (150-450); RBC 5.08 m/uL (4.30-5.90); RDW 13.4 % (11.5-15.5); WBC 7.5 k/uL (3.8-10.6)
[2020-12-06 21:00] LABS: Albumin 4.9 g/dL (3.80-4.90); Albumin/Globulin Ratio 2.72 (1.60-3.17); Anion Gap 1.1 mmol/L (4.00-12.00); Calcium 9.3 mg/dL (8.7-10.3); Carbon Dioxide 27.9 mmol/L (21.6-31.8); Chol/HDL Ratio 4.04; Globulin 1.8 g/dL (1.6-3.3); Non-African American GFR(CKD) 118.2 (60.0-200.0); Potassium 4.5 mmol/L (3.5-5.5); Total Bilirubin 0.5 mg/dL (0.3-1.2); Total Protein 6.7 g/dL (6.2-8.2)
== END | disposition home or self-care (01) ==
LOC: LABWHC1 12:47
PROVIDERS: ATTEND Family Medicine
DX: E78.5 Hyperlipidemia, unspecified (principal)
CPT/HCPCS: 36415; 80053; 80061; 82550; 85025